=== PATIENT | female | born 1955 | race Caucasian/White ===

== ENCOUNTER 2024-09-17 19:52 | Inpatient (IN) | payer MEDICARE, SELFPAY ==
[2024-09-17] VITALS (39 sets, daily range): BP systolic 52–197; BP diastolic 17–88; BMI 41.0
[2024-09-17] MEDS: VERSED 5 MG IV ×3 (16:50→22:04)
[2024-09-17 17:02] LABS: Hematocrit 45.3 % (37.0-47.0); Hemoglobin 14.1 g/dL (12.0-16.0); Mean Corp Hgb Conc. 31.1 g/dL (33.0-37.0); Mean Corpuscular Volume 98.5 fL (81.0-99.0); Nucleated Red Blood Cells % 0 %; Platelet Count 269 10^3/uL (130-400); Red Cell Dist. Width 15.9 % (11.5-14.5)
--- NOTE | 2024-09-17 17:06 | ED.GENMED ---
Addendum entered and electronically signed by Reyes Olson MD 09/17/24 19:28:
Patient awaiting admission by hospitalist. Blood pressure 100/50. She is mildly fighting the ventilator. ABG was reviewed with a CO2 of 50. We will go up on her assist-control, repeat her ABG. Also try to push her pressors slightly higher and
hopefully add propofol.
Original Note:
History of Present Illness
General
Chief Complaint: Breathing Problem
Source: ambulance crew
Exam Limitations: none
Time Seen by Provider: 09/17/24 16:28
Nursing documentation reviewed up to this point in time: agreed with
History of Present Illness
History of Present Illness:
The patient is a 69-year-old female who arrives from a [facility] for acute respiratory distress. Reportedly, the patient choked in a hot dog yesterday. The patient became more short of breath and cyanotic prior to arrival. Paramedics were
called to the scene. Patient arrives on oxygen but is nearly unresponsive and hypoxic.
Past History
Past History
ED Past Medical History: Other
ED Past Surgical History: Other
Social History
Tobacco: Other
Alcohol: Other
Drug: Other
Personal: Single
Living: [facility]
Employment: Not employed
Family History
Family History: Unable to obtain
Review of Systems
Review of Systems
Unable to obtain full review of systems at this time due to: due to acuity
Other source history: [facility]
All Other Systems: Not applicable
Respiratory: Reports trouble breathing
Phy Exam
Physical Exam
Physical Exam:
Physical Exam
General: Patient appears on high flow oxygen, nearly unresponsive, tachypneic, audible crackles
Neck: supple. no meningeal signs. normal psoterior pharynx
Heart: s1/s2 regular rate and rhythm, no murmur. equal radial pulses.
Lungs: Tachypneic, audible crackles
Abdomen: Distended
Neuro: Eyes closed, noninteractive
Skin: Pale, cyanotic
Psychiatric: well kept.
Extremities: no edema. no calf tenderness. negative homans. good distal pulses
Scores
Heart Failure Risk
Heart Failure Risk Score: Not Applicable
Course
Orders/Labs/Results
Orders:
Orders
09/17/24 16:45
Midazolam HCl [Versed] 5 mg .ROUTE .STK-MED ONE
09/17/24 16:54
Complete Blood Count/With Diff Urgent
Comprehensive Metabolic Panel Urgent
NT-proBNP Urgent
PTT Urgent
Prothrombin Time Urgent
09/17/24 16:55
Chest X-ray Portable [CR Chest Portable - 1 View] Urgent
Comment:
Reason For Exam: aspiration
Reason Study Needs to be Portable: Patient Unstable
09/17/24 16:57
EKG [Electrocardiogram (*1)] Urgent
Reason for Study: Shortness of Breath
EKG- Treatment ONCE
09/17/24 17:00
Fentanyl Citrate/Pf [Sublimaze] 100 mcg .ROUTE .STK-MED ONE
Fentanyl Citrate/Pf [Sublimaze] 50 mcg IV NOW STA
09/17/24 17:01
FentaNYL 1,000 MCG/100 ML [Sublimaze] 1,000 mcg in 100 ml .ROUTE .STK-MED
09/17/24 17:02
FentaNYL 1,000 MCG/100 ML [Sublimaze] 1,000 mcg in 100 ml IV NOW
Indication:: Light Sedation
Begin Infusion:: Now
Goal:: pain score </= 1, CPOT 0-2
Maximum dose in mcg/hr:: 300
Initial Dose in mcg/hr:: 1
Titration Instructions:: Titrate every 30 minutes if patient exhibits signs of pain or discomfort
Titration Instructions:: (pain score >/= 2, CPOT >/= 3).
Titration Instructions:: Administer bolus dose and increase infusion by 25 mcg/hr.
Taper Instructions:: If pain score at goal for 4 consecutive hours (pain score </= 1, CPOT 0-2)
Taper Instructions:: decrease infusion by 50 mcg/hr every 2 hours.
Taper Instructions:: When dose </= 50 mcg/hr may turn infusion off and consider PRN
Taper Instructions:: intermittent bolus doses only.
Over-sedation Instructions:: If CPOT 0-2 (goal) and RASS -3 to -5 (below goal) decrease sedative by 50%
Over-sedation Instructions:: first. If pain score remains at goal and RASS remains below goal in 1 hour,
Over-sedation Instructions:: decrease opioid infusion by 50%.
Notify provider:: immediately if pt exhibits: chest wall rigidity, hemodynamic instability,
Notify provider:: agitation/pain despite maximum dosing, pain when RASS below goal.
Additional Instructions:: Patient MUST be mechanically ventilated.
Fentanyl Citrate/Pf [Sublimaze] 100 mcg IV NOW STA
Fentanyl Citrate/Pf [Sublimaze] 50 mcg IV [id number] PRN
Chest X-ray Portable [CR Chest Portable - 1 View] Urgent
Comment:
Reason For Exam: unstable
Reason Study Needs to be Portable: Patient Unstable
09/17/24 17:05
0.9% Sodium Chloride 1000 ml [Nss] 1,500 ml IV NOW STA
09/17/24 17:07
Piperacillin/Tazo 4.5 Gram [Zosyn] 4.5 gram in 100 ml IV NOW
09/17/24 17:09
0.9% Sodium Chloride 1000 ml [Nss] 2,000 ml IV BOLUS
09/17/24 17:22
Lactic Acid Urgent
Blood Culture Q30M
TAYE Source: Blood/Venous
Specimen Description:
09/17/24 17:24
Blood Culture Q30M
TAYE Source: Blood/Venous
Specimen Description:
09/17/24 17:28
Vancomycin [Vancocin] 2,000 mg 0.9% Sodium Chloride 500 ml [Nss] 500 ml IV NOW
09/17/24 17:30
NORepinephrine 4 MG/250 ML [Levophed] 4 mg in 250 ml IV PER PROTOCOL
Initial dose in mcg/min, then titrate:: 5
Titrate to keep:: SBP > 90 mmHg
Titrate by mcg/min:: 1-2 mcg/min
Frequency of titrations (minutes):: 5
Maximum dose in ICU in mcg/min:: 30
Maximum dose in IMU in mcg/min:: 8
Maximum dose in IVU in mcg/min:: 4
Begin to taper infusion when:: Remained at goal for 4hrs
Taper by mcg/min:: 1-2 mcg/min
Frequency of taper (minutes) if patient maintains goal:: 30
Taper to off?: Yes
If infusion off & no longer maintaining goal:: Contact Provider
09/17/24 17:32
ABG [Arterial Blood Gas] Urgent
%Oxygen/Room Air: 100
09/17/24 18:10
Midazolam HCl [Versed] 5 mg IV NOW STA
09/17/24 18:11
FentaNYL INFUSION TITRATE NOW X 1 BAG FentaNYL 1,000 MCG/100 ML [Sublimaze] 1,000 mcg in 100 ml IV NOW
Indication:: Light Sedation
Begin Infusion:: Now
Goal:: pain score </= 1, CPOT 0-2
Maximum dose in mcg/hr:: 300
Initial Dose in mcg/hr:: 25
Titration Instructions:: Titrate every 30 minutes if patient exhibits signs of pain or discomfort
Titration Instructions:: (pain score >/= 2, CPOT >/= 3).
Titration Instructions:: Administer bolus dose and increase infusion by 25 mcg/hr.
Taper Instructions:: If pain score at goal for 4 consecutive hours (pain score </= 1, CPOT 0-2)
Taper Instructions:: decrease infusion by 50 mcg/hr every 2 hours.
Taper Instructions:: When dose </= 50 mcg/hr may turn infusion off and consider PRN
Taper Instructions:: intermittent bolus doses only.
Over-sedation Instructions:: If CPOT 0-2 (goal) and RASS -3 to -5 (below goal) decrease sedative by 50%
Over-sedation Instructions:: first. If pain score remains at goal and RASS remains below goal in 1 hour,
Over-sedation Instructions:: decrease opioid infusion by 50%.
Notify provider:: immediately if pt exhibits: chest wall rigidity, hemodynamic instability,
Notify provider:: agitation/pain despite maximum dosing, pain when RASS below goal.
Additional Instructions:: Patient MUST be mechanically ventilated.
Fentanyl Citrate/Pf [Sublimaze] 100 mcg IV NOW STA
Fentanyl Citrate/Pf [Sublimaze] 50 mcg IV [id number] PRN
Abnormal Lab Results
09/17/24 09/17/24 09/17/24
16:54 17:22 17:32
WBC 22.8 H 10^3/uL
(4.8-10.8)
MCHC 31.1 L g/dL
(33.0-37.0)
RDW 15.9 H %
(11.5-14.5)
MPV 11.7 H fL
(7.4-10.4)
Abs Immat Gran (auto) 0.1 H 10^3/uL
(0-0.05)
Absolute Neuts (auto) 17.5 H 10^3/uL
(1.4-6.5)
Absolute Lymphs (auto) 3.9 H 10^3/uL
(1.2-3.4)
Absolute Monos (auto) 1.3 H 10^3/uL
(0.1-0.6)
Neutrophils % 76.9 H %
(42.2-75.2)
Lymphocytes % 16.9 L %
(20.5-51.1)
PT 15.0 H Sec
(11.4-14.6)
pH 7.17 L*
(7.35-7.45)
pCO2 50 H mmHg
(32-35)
pO2 193 H mmHg
(83-108)
HCO3 18.2 L mmol/L
(21-28)
ABG O2 Sat (Measured) 99.8 H %
(94-98)
Chloride 109 H mmol/L
(98-107)
Glucose 323 H mg/dl
(70-99)
Lactic Acid 2.7 H mmol/L
(0.7-2.0)
09/17/24 16:54
09/17/24 16:54
Vital Signs
Initial and Last Documented VS:
Initial Vital Signs
Pulse Resp
122 35
09/17/24 16:34 09/17/24 16:34
Last Documented Vital Signs
Pulse Resp BP Pulse Ox
88 25 84/47 100
09/17/24 18:00 09/17/24 18:00 09/17/24 18:00 09/17/24 18:02
MDM/Problems Addressed
Differential Diagnosis Includes:
Aspiration pneumonia, UTI, CHF
MDM/Problems Addressed:
Patient presents with acute shortness of breath
*Pulse Oximetry
SaO2: 62
Patient hypoxic: yes
Comment: 62% on arrival
*EKG
Interpreted by ED Provider?: Yes
Interpretation: abnormal
Comparison EKG: no comparison EKG present
Rate: normal
Rhythm: sinus
Sibley: normal axis
Interval: normal interval
QRS Pattern: right bundle branch block
Ischemia: non-specific ST changes
*Mailing Section Clerk Interpretation
Rate: normal
Interpretation: normal
Rhythm: sinus
*Critical Care Note
Total Time (30-74mins, 75-104mins- exclusive of procedures): 43 minutes
comment:
43 minutes of critical care given to the patient including frequent reassessments of her respiratory effort mental status and blood pressure, reviewing her chest x-ray, speaking to the hospitalist, reviewing her lab work, speaking to her brother Kevyn
Data Reviewed
Source: ambulance crew
Patient Management
Discussion with other providers: Hospitalist
Update Note
Update Note:
I personally intubated the patient with a 6.0 ET tube. Tube placement confirmed by color change and chest x-ray.
ED Attending Note
-
Portions of this chart may have been created with voice recognition software.� Occasional wrong word or��sound alike� substitutions may have occurred due to the inherent limitations of voice recognition software.
Discharge Plan
Departure
Patient Disposition: Admit
Date of Disposition: 09/17/24
Time of Disposition: 17:29
Admit to: ICU
Presentation/result/management discussed w/ accepting MD/DO: Hospitalist
Patient with high blood pressure during this ER visit?: No
Condition: Critical
Discharge Problem:
Acute hypoxic respiratory failure, Septic shock, Aspiration pneumonia
Interventions
Interventions:
*Risk Screen - Suicide Last Done: 09/17/24 17:20
*General Assessment Last Done: 09/17/24 17:20
*Neglect/Abuse Screening Last Done: 09/17/24 17:20
*ED- Fall Risk Assessment Last Done: 09/17/24 17:20
*ED COVID-19 Vaccine History Last Done: 09/17/24 17:20
ED- Cardiac Assessment Last Done: 09/17/24 16:35
ED- Pulmonary Assessment Last Done: 09/17/24 16:35
Discharge Date and Time
Print Language: SURINAMESE
[2024-09-17] MEDS: SUBLIMAZE 50 MCG IV ×2 (17:10→20:14)
[2024-09-17 17:12] LABS: APTT 26.6 Sec (23.4-35.0); INR 1.15; PT 15.0 Sec (11.4-14.6)
[2024-09-17] MEDS: NSS 2000 IV (17:14)
[2024-09-17 17:27] LABS: ALT (SGPT) 22 U/L (0-35); AST (SGOT) 33 U/L (14-36); Albumin 4.1 g/dl (3.5-5.0); Alkaline Phosphatase 85 U/L (38-126); Blood Urea Nitrogen 17 mg/dl (7-17); Calcium 9.9 mg/dl (8.4-10.2); Carbon Dioxide 24 mmol/L (22-30); Chloride 109 mmol/L (98-107); Estimated Creatinine Clearance 75 ml/min; Glucose 323 mg/dl (70-99); Potassium 4.4 mmol/L (3.5-5.1); Sodium 143 mmol/L (135-145); Total Protein 7.5 g/dl (6.3-8.2); eGFR > 60.00
[2024-09-17] MEDS: ZOSYN 100 IV (17:27)
[2024-09-17] MEDS: LEVOPHED 250 IV (17:29)
[2024-09-17] MEDS: SUBLIMAZE 100 IV (17:30)
[2024-09-17] MEDS: VANCOCIN 540 MG IV (17:39)
[2024-09-17 17:44] LABS: B.E. -10.2 mmol/L; HCO3 18.2 mmol/L (21-28); O2 Saturation % 99.8 % (94-98); PCO2 50 mmHg (32-35); PO2 193 mmHg (83-108)
[2024-09-17] MEDS: NSS 1000 IV (18:39)
--- NOTE | 2024-09-17 19:13 | HPS.HSE ---
Addendum entered and electronically signed by Chester Valentin MD 09/17/24 23:34:
CTC PE protocol
1. No evidence of central or segmental pulmonary embolism.
2. There are bilateral perihilar consolidations extending throughout the lungs with surrounding groundglass and nodular opacities consistent with multifocal pneumonia. Additionally there is a 9 mm nodular opacity in the superior left upper lobe
which may be infectious in nature however follow-up is recommended to ensure resolution.
3. 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 There is associated mild narrowing of the right mainstem bronchus.
4. Fluid is present within the esophagus which may be secondary to extrinsic compression although a discrete mass cannot be excluded..
When the patient can tolerate a fluoroscopic esophagram or endoscopy may be considered as clinically warranted.
Original Note:
Family Physician
-
Family Physician: NOT KNOW UNKNOWN - PT DOES
Chief Complaint
-
[facility] for unresponsive and acute resp distress
History of Present Illness
I could not get any information from the patient is sedated and intubated
Information gathered by chart review and speaking with the ER staff.
HPI
69F [facility]
- for acute respiratory distress
- reportedly, the patient choked in a hot dog yesterday.
- then became more short of breath and cyanotic prior to arrival.
- Paramedics were called to the scene.
On arrival to ER:
- Unresponsive
- BP as low as 73/50, RR 25- 30 , POx 100
- s/p 3 L NS
- Initiated NE gtt
ABG 7.17/ pCO2 50, pO2 193
- sedated and Intubated
- on Vent and bucking the vent
CXR :
highly suggestive of bilateral pneumonia, left greater then right. No evidence for associated pleural effusion.
Question of right-sided aortic arch, although could just be due to slight right-sided rotation..
As warranted, follow-up 2 view chest radiograph could be considered.
Medical History
Past Medical History
Past Medical History: Reports Other (on vent , no prior admission to )
Past Surgical History: Reports Other (on vent , no prior admission to )
Social History
Unable to obtain full social history at this time due to: Patient Intubation (on vent , no prior admission to )
Family History
Family History: Unable to Obtain (on vent , no prior admission to )
Allergies / Home Medications
Allergies reflects when Allergies were last updated in [employer]
Home Medications with original date entered in [employer]
Allergy/Medication List:
Allergies
Allergy/AdvReac Type Severity Reaction Status Date / Time
No Known Allergies Allergy Unverified 09/17/24 16:51
If medication reconciliation has not been performed, why?: Other (on vent , no prior admission to )
Review of Systems
-
Unable to obtain full review of systems at this time due to: Patient Intubation
Physical Exam
Vital Signs
Vital Signs
Temp Pulse Resp BP Pulse Ox
99.5 F 84 25 92/53 100
09/17/24 19:08 09/17/24 18:19 09/17/24 18:19 09/17/24 18:20 09/17/24 18:19
Physical Exam
General: Intubated
HEENT: NormoCephalic
Respiratory: Other (symmetric AE )
Cardiac: S1/S2 and Regular Rhythm
GI: Soft, Non Tender and Non Distended
Musculoskeletal: No Edema
Neuro: Other (intubated )
Psych: Other (on vent , no prior admission to )
Laboratory Results
-
09/17/24 16:54
09/17/24 16:54
Laboratory Results
PT 15.0 Sec (11.4-14.6) H 09/17/24 16:54
INR 1.15 09/17/24 16:54
APTT 26.6 Sec (23.4-35.0) 09/17/24 16:54
pH 7.17 (7.35-7.45) L* 09/17/24 17:32
pCO2 50 mmHg (32-35) H 09/17/24 17:32
pO2 193 mmHg (83-108) H 09/17/24 17:32
HCO3 18.2 mmol/L (21-28) L 09/17/24 17:32
Lactic Acid 2.7 mmol/L (0.7-2.0) H 09/17/24 17:22
Total Bilirubin 0.8 mg/dl (0.2-1.3) 09/17/24 16:54
AST 33 U/L (14-36) 09/17/24 16:54
ALT 22 U/L (0-35) 09/17/24 16:54
Alkaline Phosphatase 85 U/L (38-126) 09/17/24 16:54
Data Reviewed
-
CT Scan: Other (pending CTC PE protocol )
Lab Data: Labs Reviewed by me
Impression/Plan
-
09/17/24
16:34 09/17/24
16:35
Pulse 122
Resp Rate 35
SaO2 85
Oxygen Mode of Delivery BiPAP
Laboratory Tests
09/17/24 09/17/24
16:54 17:32
WBC 22.8 H
Hgb 14.1
Plt Count 269
INR 1.15
pH 7.17 L*
pCO2 50 H
pO2 193 H
HCO3 18.2 L
Base Excess -10.2
CXR
- highly suggestive of bilateral pneumonia, left greater then right. No evidence for associated pleural effusion.
- question of right-sided aortic arch, although could just be due to slight right-sided rotation..
- As warranted, follow-up 2 view chest radiograph could be considered.
CTC with PE study pending
EKG
NORMAL SINUS RHYTHM
RIGHT BUNDLE BRANCH BLOCK
ABNORMAL ECG
NO PREVIOUS ECGS AVAILABLE
Last hospitalist admission:
ASSESSMENT & PLAN
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
Above preceded by choked in a hot dog yesterday - [id number] rule out food impaction
Acute hypoxic RF subsequent VDRF
Obtunded encephalopathy due to acute hypoxia
Intubated to protect AW
CXR POS for bilateral PNA L> R presumed aspiration complicated with sepsis glenys sesptic shock
- cont intubation
- ER d/w GI: Gi suggest CT imaging Chest - If Esophagus looks OK , will consult in AM
- Empiric IV Vancomycin and Zosyn
- Vent management by ICU consult
- GI consulted
Agitation on Vent
- IV Ativan 2 mg
- on Fentanyl gtt
- May need Propofol gtt
Hypotension s/p 3 L NS
Presumed septic shock
- On NS IVF
- on NE gtt at max out
- Initiate Vasopressin gtt
- ABx coverage for presumed sepsis
DVT Px: LMWH
Full code
ICU
Case dw ER attd, ICU DIRECTOR SCRIPT
Total Critical Care Time__65___ minutes. I was immediately available to the patient and staff. I personally examined, reviewed labs, diagnostic images/reports, interpretations, treatment plans, discussed patient care with other providers and
family or caregivers (if patient is unable to make decisions), entered orders as appropriate and documented the medical record.
[2024-09-17 19:39] LABS: B.E. -9.1 mmol/L; HCO3 18.4 mmol/L (21-28); O2 Saturation % 99.8 % (94-98); PCO2 45 mmHg (32-35); PO2 261 mmHg (83-108)
[2024-09-17] MEDS: LR 1000 IV (19:59)
[2024-09-17] MEDS: PITRESSIN 100 IV (20:01)
--- NOTE | 2024-09-17 20:04 | VATNOTE ---
Call by ER to check Lt. arm Midline placed today at [facility]. Trevor flushes easily and has a blood return. Redressed and biopatch applied, but unable to attach statlock to the Midline, secured with steri strip. Call to [facility] and
spoke to staff sonographer for Midline measurements. Will follow.
[2024-09-17] MEDS: SODIUM BICARBONATE 50 MEQ IV (20:10)
[2024-09-17] MEDS: SOLU-CORTEF 100 MG IV (20:13)
[2024-09-17 21:22] LABS: Urine Character Slightly Cloudy (Clear)
--- NOTE | 2024-09-17 21:22 | PHA.VAN.IN ---
Assessment
- Assessment
Renal Function: Appears similar to baseline, Unknown baseline
Maximum Temperature: 99.5
Minimum Temperature: 99.5
Concomitant Antimicrobials: PIP/TAZO
AUC Dosing Plan
- Dosing Variables
Dosing Weight (kg): 101.5
Dosing CrCl (ml/min): 75
Vd coefficient (L/kg): 0.6
- Empiric Dosing
Initial / Loading Dose: 2000mg on 09/17
Maintenance Regimen: 1000mg Q12H starting 09/18
Estimated AUC (mcg*h/mL): 509
Estimated Peak (mcg*h/mL): 29.8
Estimated Trough (mcg/ml): 14.3
Estimated Half Life (H): 10.4
- Monitoring
No levels ordered at this time: Consider levels in next few days
Pharmacokinetics Vancomycin I
- -
Patient Age: 69
Patient Sex: Female
Vancomycin Day #: 1
Indication: Pulmonary/Respiratory
Requesting Provider: Dr. Valentin
Pertinent Antimicrobial Allergies:
NKDA
Height / Weight:
Height 5 ft 2 in
Actual Weight 101.5 kg
- Vital Signs / Lab Results
Temp Pulse Resp BP Pulse Ox
99.5 F 96 20 62/27 99
09/17/24 19:08 09/17/24 20:30 09/17/24 20:30 09/17/24 20:22 09/17/24 21:16
Lab Results - Hematology
09/17/24
16:54
WBC 22.8 H
Lab Results - Chemistry
09/17/24
16:54
BUN 17
Creatinine 0.8
Estimated Creat Clear 75
Albumin 4.1
09/17/24
17:22
Lactic Acid 2.7 H
[2024-09-17] MEDS: PRECEDEX 100 IV (21:25)
[2024-09-17] MEDS: NEO-SYNEPHRINE 250 IV (21:25)
--- NOTE | 2024-09-17 21:28 | PTCARENOTE ---
Critical Care team called to assist w. pt. in ED.
Upon arrival pt. maxed on Norepi, Vasopressin initiated. ICU [facility] notified of decreasing maps --> orders to start phenylephrine.
All Vasopressors quickly maxed, CT chest completed, pt. transported to ICU w. Critical care team.
[2024-09-17 21:33] LABS: Urine Squamous Cell >30 /LPF (Few)
[2024-09-17 21:34] LABS: Urine Red Blood Cell 26-30 /HPF (0-2)
[2024-09-17] MEDS: HEPARIN 5000 UNITS SC (22:05)
--- NOTE | 2024-09-17 23:15 | PTCARENOTE ---
Pressors being titrated down. Phenyl gtt off.
Multiple providers unable to get central or arterial access. IRAD to be consulted.
Vasopressor titrations to be down off NIBP.
Vasoactive medications to be through midline, as no further access is available.
[2024-09-17] MEDS: SOLU-CORTEF 50 MG IV (23:25)
[2024-09-17] MEDS: ZOSYN 50 IV (23:25)
--- NOTE | 2024-09-17 23:57 | W.PN.SEPSIS ---
Sepsis
Vital Signs
Temp Pulse Resp BP Pulse Ox
99 F 66 20 108/57 99
09/17/24 23:15 09/17/24 23:15 09/17/24 23:15 09/17/24 23:01 09/17/24 23:15
Physical Exam
Physical Exam:
A focused exam was performed after fluid resuscitation.
Capillary Refill
Bilateral Upper Extremity:
Carmelita Time: Less than 3 sec
Bilateral Lower Extremity:
Carmelita Time: Less than 3 sec
Pulse Evaluation
Bilateral Radial:
Pulse Evaluation: Present
Bilateral Dorsalis Pedis:
Pulse Evaluation: Present
[2024-09-18] VITALS (98 sets, daily range): BP systolic 72–137; BP diastolic 45–99; BMI 41.2
--- NOTE | 2024-09-18 00:06 | PTCARENOTE ---
Fi02 decreased to 40.
--- NOTE | 2024-09-18 02:59 | PTCARENOTE ---
Addendum entered by Carlton Worthy RN 09/18/24 03:29:
Vent rate decreased to 16.
Original Note:
Vasopressors cont. to be titrated down see flowsheets for details.
No further change in assessment.
[2024-09-18] MEDS: LEVOPHED 250 IV ×3 (03:00→17:39)
[2024-09-18 03:24] LABS: Venous Blood Gas B.E. -9.3 mmol/L (-4 to +4); Venous Blood Gas O2 Sat % 99.8 %
[2024-09-18 03:25] LABS: Hematocrit 38.4 % (37.0-47.0); Hemoglobin 12.3 g/dL (12.0-16.0); Mean Corp Hgb Conc. 32.0 g/dL (33.0-37.0); Mean Corpuscular Volume 95.5 fL (81.0-99.0); Platelet Count 222 10^3/uL (130-400); Red Cell Dist. Width 15.8 % (11.5-14.5)
[2024-09-18] MEDS: SUBLIMAZE 100 IV ×3 (03:34→23:49)
[2024-09-18 03:41] LABS: INR 1.51; PT 18.4 Sec (11.4-14.6)
[2024-09-18 03:42] LABS: APTT 26.6 Sec (23.4-35.0)
[2024-09-18 03:54] LABS: ALT (SGPT) 24 U/L (0-35); AST (SGOT) 35 U/L (14-36); Albumin 2.9 g/dl (3.5-5.0); Alkaline Phosphatase 59 U/L (38-126); Blood Urea Nitrogen 17 mg/dl (7-17); Calcium 8.4 mg/dl (8.4-10.2); Carbon Dioxide 14 mmol/L (22-30); Chloride 113 mmol/L (98-107); Estimated Creatinine Clearance 75 ml/min; Glucose 430 mg/dl (70-99); Magnesium 1.7 mg/dl (1.6-2.3); Potassium 4.4 mmol/L (3.5-5.1); Sodium 138 mmol/L (135-145); Total Protein 5.5 g/dl (6.3-8.2); eGFR > 60.00
--- NOTE | 2024-09-18 04:02 | PTCARENOTE ---
ICU [facility] notified of CMP results.
Orders for insulin gtt to be started.
Frequent periods of bradycardia with SA pauses in 30s.
Dex stopped.
Vasopressin weaned off, Levo uptitrated.
[2024-09-18] MEDS: NOVOLIN R 10 UNITS IV (04:30)
[2024-09-18] MEDS: NOVOLIN R INSULIN INFUSION 100 IV ×2 (04:32→11:46)
--- NOTE | 2024-09-18 04:38 | PTCARENOTE ---
LR D\\C --> fluids changed to Hc03 gtt.
Insulin gtt started per protocol bolus 10U. POC sugar to high, initial rate made from serum Glu.
[2024-09-18 04:41] LABS: Glucose - Point of Care 433 mg/dl (70-99)
[2024-09-18] MEDS: ZOSYN 50 IV ×3 (05:01→17:18)
[2024-09-18] MEDS: SOLU-CORTEF 50 MG IV ×3 (05:01→17:18)
[2024-09-18] MEDS: SODIUM BICARBONATE 1150 MEQ IV ×2 (05:01→11:51)
[2024-09-18] MEDS: VANCOCIN 200 IV ×2 (05:38→17:50)
[2024-09-18 05:47] LABS: Glucose - Point of Care 395 mg/dl (70-99)
--- NOTE | 2024-09-18 06:43 | PTCARENOTE ---
POC to high --> Serum GLU sent.
[2024-09-18 07:03] LABS: Glucose 323 mg/dl (70-99)
[2024-09-18] MEDS: MIRALAX TUBE (07:19)
[2024-09-18] MEDS: HEPARIN 5000 UNITS SC ×2 (07:36→19:57)
--- NOTE | 2024-09-18 07:56 | CON.INTV ---
Consultation
Consultation Request
Date/Time Consultation Requested: 09/18/2024-7 AM
Date/Time Consultation Performed: 09/18/2024-7:30 AM
Requesting Provider: hospitalist
Performing Provider: Dr. Plascencia
Reason for Consultation: sepsis/ventilator/critical care management
Medical History
-
Chief Complaint: sepsis
History of Present Illness:
69-year-old non-smoking female with Down syndrome who reportedly had a choking episode on a hot dog yesterday but no obvious aspiration of the hot dog but possible aspiration of oral contents presented with obtundation requiring intubation
mechanical ventilation-plan examiner consulted for ventilator/aspiration pneumonia/sepsis/critical care management 09/18/2024. Patient is sedated on the ventilator and review of systems was unobtainable. Mild amount of secretions were noted.
Past Medical History
Past Medical History: None ( Down syndrome. Dysphagia. Obesity. AMBER suspected.)
Social History
Tobacco: Non-smoker
Alcohol: None
Drug: None
Personal: Single
Living: Snf
Occupational Exposures: Unknown asbestos exposure
Environmental Exposures: unknown tuberculosis exposure
Family History
Family History: Reviewed & Not Pertinent
Allergies / Home Medications
Allergies
Allergy/AdvReac Type Severity Reaction Status Date / Time
No Known Allergies Allergy Unverified 09/17/24 16:51
Home Medications
�Medication �Instructions �Recorded �Confirmed �Last Taken �Type
aripiprazole 2 mg tablet 2 mg PO HS Mental Health/Anxiety 09/18/24 09/18/24 09/15/24 20:54 History
aspirin 81 mg capsule 81 mg PO DAILY 09/18/24 09/18/24 09/16/24 10:14 History
buspirone 5 mg tablet 5 mg PO TID 09/18/24 09/18/24 09/16/24 13:23 History
cetirizine 10 mg tablet 10 mg PO DAILY Allergies 09/18/24 09/18/24 09/16/24 10:14 History
etodolac 400 mg tablet 400 mg PO DAILY 09/18/24 09/18/24 09/16/24 10:15 History
ezetimibe 10 mg tablet 10 mg PO DAILY High Cholesterol 09/18/24 09/18/24 09/15/24 20:54 History
fluoxetine 40 mg capsule 40 mg PO DAILY Depression 09/18/24 09/18/24 09/16/24 10:15 History
fluticasone 250 mcg-salmeterol 50 1 inh inhalation BID 09/18/24 09/18/24 09/17/24 10:41 History
mcg/dose blistr powdr for
inhalation (Wixela Inhub)
fluvastatin 40 mg capsule 40 mg PO HS High Cholesterol 09/18/24 09/18/24 09/15/24 20:54 History
insulin glargine 100 unit/mL (3 30 unit SC DAILY 09/18/24 09/18/24 09/17/24 11:05 History
mL) subcutaneous pen (Lantus
Solostar U-100 Insulin)
insulin lispro 100 unit/mL 12 unit SC TID Diabetes 09/18/24 09/18/24 09/17/24 12:05 History
subcutaneous pen
levothyroxine 125 mcg tablet 125 mcg PO DAILY Thyroid 09/18/24 09/18/24 09/16/24 05:14 History
metformin 500 mg tablet 500 mg PO BID 09/18/24 09/18/24 09/16/24 10:16 History
omeprazole 20 mg tablet,delayed 20 mg PO DAILY Gastrointestinal 09/18/24 09/18/24 09/16/24 05:14 History
release Issue
trazodone 50 mg tablet 50 mg PO HS Depression 09/18/24 09/18/24 09/15/24 20:54 History
Review of Systems
-
Unable to Obtain full review of systems at this time due to: Patient Intubation and Patient Non Verbal
Vitals / Labs / Diagnostic Testing
Vital Signs
Temp Pulse Resp BP Pulse Ox
98.3 F 55 16 97/54 99
09/18/24 07:33 09/18/24 07:30 09/18/24 07:30 09/18/24 07:30 09/18/24 07:32
Lab Data
09/18/24 03:08
09/18/24 06:41
Laboratory Results
09/17/24 09/17/24 09/17/24
16:54 17:32 19:33
PT 15.0 H
INR 1.15
APTT 26.6
pH 7.17 L* 7.22 L
pCO2 50 H 45 H
pO2 193 H 261 H
HCO3 18.2 L 18.4 L
O2 Delivery Level
09/18/24 09/18/24
03:08 06:00
PT 18.4 H
INR 1.51
APTT 26.6
pH Cancelled
pCO2 Cancelled
pO2 Cancelled
HCO3 Cancelled
O2 Delivery Level Cancelled
Diagnostic Testing:
Physical Exam
-
Exam:
well-nourished and well-developed female intubated in no distress
HEENT-atraumatic, normocephalic, oral tracheal intubation
Neck-supple, no JVD, no bruit, thick neck
Heart-regular rate and rhythm-no murmurs, rubs or gallops
Chest with crackles at the bases and expiratory rhonchi
Back-no tenderness
Abdomen-soft, nontender, nondistended, no hepatosplenomegaly
Extremities-no cyanosis, clubbing, edema and good peripheral pulses
Integument-intact, no rashes, lesions or ecchymosis
Neurologically not alert not oriented and not moving extremities
Assessment
-
69-year-old non-smoking female with Down syndrome who reportedly had a choking episode on a hot dog yesterday but no obvious aspiration of the hot dog but possible aspiration of oral contents presented with obtundation requiring intubation
mechanical ventilation-plan examiner consulted for ventilator/aspiration pneumonia/sepsis/critical care management 09/18/2024.
Ventilator dependent respiratory failure secondary to aspiration pneumonia and hypoxemic/hypercapnic respiratory failure
Intubated 09/17/2024
Extubated
Aspiration pneumonia
Dysphagia with suspected esophageal stricture
Leukocytosis
Metabolic acidosis
Hyperglycemia-blood sugar 430
Lactic acidosis
Elevated total bilirubin
Conditions present prior to admission:
Down syndrome.
Dysphagia.
Obesity-BMI 41
AMBER suspected.
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
Plan
Admit patient to medical intensive care unit for persistent hypotension despite fluid resuscitation requiring pressors
Patient required intubation and mechanical ventilation
Ventilator settings reviewed
ABG reviewed
Ventilator adjusted
Spontaneous breathing trial once medical issues stabilize
VAP prevention protocol
Nebulizers if needed
CT chest personally reviewed-airspace consolidation consistent with pneumonia-endobronchial lumen without masses-do not suspect foreign body lodged in airway, however, we will consider bronchoscopic inspection prior to extubation
Obtain cultures
Empiric antibiotics-vancomycin and Zosyn initiated
Consider Infectious disease consultation
Monitor leukocytosis
Fluid resuscitation with 30 mL/kg crystalloid-preferably lactated ringer-(less ARCHANA) with subsequent boluses as needed
Monitor lactate
Follow CVP if possible
Attempt noninvasive bedside tissue perfusion evaluation to see if fluid bolus responsive
Measure pulse pressure and stroke volume variation if patient on ventilator, passively breathing without arrhythmia and with temporary large tidal volume ventilation and if > 13% then likely fluid bolus responsive
If patient active then consider measuring bedside leg lift for 3 minutes and if cardiac output increases or if there is a rise of 2-4 on end-tidal CO2 then fluid bolus
If bedside ultrasound available then measure IVC diameter variation to evaluate for fluid bolus responsiveness
Begin pressors as needed for MAP goal of 65-Norepinephrine first, then Vasopressin and consider Angiotensin II if continues to be hypotensive-currently on norepinephrine, vasopressin, and phenylephrine
Consider methylene blue if available-specific inhibitor of induced nitric oxide synthase iNOS and its downstream enzyme soluble guanylate cyclase-noninferiority study shown to reduce time to vasopressor discontinuation, decreased ICU length of stay,
hospital stay but no change in mortality-published Critical Care 05/26/2022
If persistently hypotensive then consider checking random cortisol-hydrocortisone if random less than 3, if 3-15 then consider ACTH stimulation test
If persistently hyperthermic then correcting hyperthermia can decrease pressor requirements, increased chances of reversal of shock and decrease mortality
Patient with significant dysphagia
Gastroenterology evaluation pending
May require endoscopy
Monitor blood sugar
Glycemic protocol-insulin drip
Diabetic nurse practitioner consultation
DVT prophylaxis
Early nutrition if possible
Early mobilization/bedside range of motion
Suspect obstructive sleep apnea-consider outpatient pulmonary and sleep evaluation
Critical care statement: A total of 85 minutes of critical care time was provided for this patient today. This includes management of unstable vital signs, evaluation of the patient at bedside, reviewing the patient's pertinent medical records
including radiographs, ventilator management, sepsis management, insulin drip management, pressor management,microbiology, laboratory evaluations, and discussion with primary team, consultants, pharmacy, nutrition, physical therapy, case
management, charge nurse, critical care nursing, and respiratory therapy.
Diagnostic data:
Chest x-ray 09/17/2024-bilateral pneumonia left greater than right
CT chest 09/17/2024-no evidence for central or segmental pulmonary emboli, bilateral perihilar consolidations consistent with multifocal pneumonia and 9 mm nodule opacification superior left upper lobe may be infectious in nature though follow-up
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
discrete mass cannot be excluded
Data Reviewed
-
EKG: Report reviewed by me
Radiology: Image personally visualized and interpreted and Report reviewed by me
CT Scan: Image personally visualized and interpreted and Report reviewed by me
Medical Tests (Nuc Med, Echo etc): Report reviewed by me
Labs: Labs reviewed by me
Old Records: Reviewed
Critical Care Time (in minutes): 85
--- NOTE | 2024-09-18 08:00 | PTCARENOTE ---
Patient received from night shift manager, assessment as charted. orders reviewed.
[2024-09-18 08:16] LABS: Glucose - Point of Care 330 mg/dl (70-99)
--- NOTE | 2024-09-18 08:51 | W.PN.UPDATE ---
Update Note
Progress Note Update
Reviewed imaging. Patient with bilateral multifocal pneumonia, intubated. There was a question of whether a food bolus remained in her esophagus as she was admitted following choking on a hot dog and the presenting with respiratory distress. CT
chest shows some fluid in the esophagus no evidence of food there. Radiologist states that the fluid could be secondary to extrinsic compression but cannot rule out a mass. There is nothing obvious seen on imaging. Will reassess patient once
respiratory status is optimized to evaluate whether EGD or other diagnostic study is indicated.
[2024-09-18 09:13] LABS: Glucose - Point of Care 334 mg/dl (70-99)
--- NOTE | 2024-09-18 10:10 | PTCARENOTE ---
updated patient's brother Kevyn.
[2024-09-18 10:23] LABS: Glucose - Point of Care 278 mg/dl (70-99)
[2024-09-18] MEDS: NSS (PRESERVATIVE FREE) 10 ML IV (10:41)
[2024-09-18] MEDS: PROTONIX IV 40 MG IV (10:41)
[2024-09-18 11:14] LABS: Glucose - Point of Care 222 mg/dl (70-99)
[2024-09-18] MEDS: PRECEDEX 100 IV (11:46)
--- NOTE | 2024-09-18 11:56 | W.PN.HOSP.TC ---
Today's Communication/Plan
-
Monitor vital signs and see plan
Discussed with brother over the phone
Continue with empiric antibiotics
Wean vent and sedation as tolerated
Trend lactate
Check Legionella, strep
Continue insulin drip
Assessment / Plan
Assessment / Plan
General: Intubated, appears chronically ill
HEENT: NormoCephalic
Respiratory: Ventilated breath sound
Cardiac: S1/S2 and Regular Rhythm
GI: Soft, Non Tender and Non Distended
Musculoskeletal: No Edema
Neuro: Other (intubated )
Psych: Other (on vent)
Acute hypoxic hypercapnic respiratory failure secondary to aspiration pneumonia
Intubated 09/17/2024, vent management per personnel clerks supervisor
Continue with empiric antibiotics
History of dysphagia with suspected esophageal stricture; GI following
Wean sedation as tolerated
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 Management per personnel clerks supervisor
Septic shock secondary to aspiration pneumonia
Follow-up blood culture
Check Legionella, strep
Continue with empiric antibiotics
Currently on Levophed, wean pressors as tolerated
Continue with stress dose steroids
Lactic acidosis
Trend
Acute metabolic acidosis
Continue with bicarb drip
Repeat BMP later today
Hyperglycemia
History of diabetes
Continue with insulin drip
Hold metformin
History of bipolar disorder, depression Per [facility] point chart
Restart fluoxetine, buspirone, aripiprazole when able and mental status allows
History of asthma
Does not appear to be an asthma exacerbation
Hyperlipidemia
Hypothyroidism
Continue to hold levothyroxine at this time however if n.p.o. for longer then will need IV thyroid
Morbid obesity secondary to excess calories
Monitor
GERD
DVT prophylaxis
Heparin
Full code, discussed with brother
Total Critical Care Time__48___ minutes. I was immediately available to the patient and staff. I personally examined, reviewed labs, diagnostic images/reports, interpretations, treatment plans, discussed patient care with other providers and
family or caregivers (if patient is unable to make decisions), entered orders as appropriate and documented the medical record.
Anticipated Discharge: > 48 hours
Subjective/Interval History
-
Date of Service: September 18, 2024
Intubated and sedated
Objective Data
-
Labs:
Laboratory Results
09/18/24 09/18/24 09/18/24
03:08 06:00 06:41
WBC 20.3 H
Hgb 12.3
Hct 38.4
Plt Count 222
PT 18.4 H
INR 1.51
APTT 26.6
HCO3 Cancelled
Sodium 138
Potassium 4.4
Chloride 113 H
Carbon Dioxide 14 L*
BUN 17
Creatinine 0.8
Glucose 430 H 323 H
Calcium 8.4 D
Total Bilirubin 1.7 H
AST 35
ALT 24
Alkaline Phosphatase 59
Vital Signs:
Vital Signs
Temp Pulse Resp BP Pulse Ox
98.5 F 53 16 93/56 99
09/18/24 11:36 09/18/24 09:00 09/18/24 09:00 09/18/24 09:00 09/18/24 11:10
I&O
09/17/24 09/18/24 09/19/24
06:59 06:59 06:59
Intake Total 2008.6 / 2204.6 991.5 / 991.5
Output Total 550 / 625 200 / 200
Balance 1459.6 / 1579.6 791.5 / 791.5
--- NOTE | 2024-09-18 12:10 | PTCARENOTE ---
IR placed central line at bedside, CXR obtained. awaiting read to change lines for pressors. ongoing supportive care. patient became agitated, low dose precedex started.
[2024-09-18 12:20] LABS: Glucose - Point of Care 194 mg/dl (70-99)
--- NOTE | 2024-09-18 13:47 | PHA.VAN.FU ---
Vancomycin Assessment / Plan
- Assessment
Renal Function: Stable
WBC's are: Trending Down
In the past 24 hrs, patient has been: Afebrile
Concomitant Antimicrobials: piperacillin/tazobactam
- Dosing Plan
Continue: Vanc 1000mg Q12H
- Monitoring Plan
No level(s) ordered at this time: consider levels in next few days
- Follow Up
Pharmacy will continue to follow.
Vancomycin Follow UP
- -
Patient Age: 69
Patient Sex: Female
Vancomycin Day #: 2
Indication: Pulmonary/Respiratory
Requesting Provider: Dr. Valentin
Pertinent Antimicrobial Allergies:
NKDA
Height / Weight:
Height 5 ft 2 in
Actual Weight 102 kg
Pertinent Past Medical History: BMI ~41
- Vital Signs / Lab Results
Temp Pulse Resp BP Pulse Ox
98.5 F 52 16 121/64 97
09/18/24 11:36 09/18/24 12:45 09/18/24 12:45 09/18/24 12:45 09/18/24 12:30
Lab Results - Hematology
09/17/24 09/18/24
16:54 03:08
WBC 22.8 H 20.3 H
Lab Results - Chemistry
09/17/24 09/18/24
16:54 03:08
BUN 17 17
Creatinine 0.8 0.8
Estimated Creat Clear 75 75
Albumin 4.1 2.9 L
09/17/24 09/17/24 09/18/24
17:22 23:31 01:00
Lactic Acid 2.7 H 3.4 H Cancelled
09/18/24 09/18/24 09/18/24
03:08 05:00 06:41
Lactic Acid 2.9 H Cancelled 2.5 H
09/18/24 09/18/24
09:00 12:18
Lactic Acid Cancelled 2.3 H
Lab Results - Urine
09/17/24
21:06
Urine Nitrite (Reflex) Positive A
Leukocyte Esterase Rfl 1+ A
Ur Squamous Epith Cells >30
Microbiology Results
09/17/24 23:31 Nasal Screen MRSA (PCR) - Final
Nose MRSA not detected - performed by PCR methodology.
[2024-09-18 14:21] LABS: Glucose - Point of Care 206 mg/dl (70-99)
[2024-09-18 14:21] LABS: Glucose - Point of Care 204 mg/dl (70-99)
[2024-09-18 15:16] LABS: Glucose - Point of Care 134 mg/dl (70-99)
[2024-09-18 16:13] LABS: Glucose - Point of Care 145 mg/dl (70-99)
--- NOTE | 2024-09-18 17:15 | PTCARENOTE ---
patient was awakened during turning and repositioning, was agitated, pulling at restraints and tube. Patient was nodding appropriately when explained what is happening. stayed with patient, provided emotional support, restarted precedex gtt.
[2024-09-18 17:36] LABS: Glucose - Point of Care 116 mg/dl (70-99)
[2024-09-18 18:09] LABS: Glucose - Point of Care 115 mg/dl (70-99)
[2024-09-18 19:24] LABS: Glucose - Point of Care 136 mg/dl (70-99)
[2024-09-18] MEDS: SODIUM BICARBONATE IV ×2 (19:57→20:47)
[2024-09-18 20:35] LABS: Blood Urea Nitrogen 18 mg/dl (7-17); Calcium 8.4 mg/dl (8.4-10.2); Carbon Dioxide 29 mmol/L (22-30); Chloride 106 mmol/L (98-107); Estimated Creatinine Clearance 100 ml/min; Glucose 132 mg/dl (70-99); Potassium 3.3 mmol/L (3.5-5.1); Sodium 139 mmol/L (135-145); eGFR > 60.00
[2024-09-18] MEDS: LR 1000 IV (20:47)
[2024-09-18] MEDS: KCL 100 IV (20:50)
[2024-09-18 21:10] LABS: Glucose - Point of Care 124 mg/dl (70-99)
--- NOTE | 2024-09-18 21:14 | PTCARENOTE ---
Assumed care of pt at 1900. Received pt intubated, #6.0 ETT 22cm at lip, AC 16/400/40/5. Pt on Levophed at 8mcg/min, Precedex at 0.2mcg/kg/min, Fentanyl at 100mcg/hr, IVF, and insulin per critical care glycemic protocol. See med titration flowsheets
on worklist for ongoing details regarding med rates throughout the shift. SB 50s on monitor. SpO2 98% on current vent settings. Pt opens eyes to name or to light tactile stimuli, becomes agitated with care but calms down easily when talked through
what is going on. See nursing shift assessment flowsheet for full physical assessment details.
[2024-09-18] MEDS: SUBLIMAZE 50 MCG IV (22:18)
[2024-09-18 23:27] LABS: Glucose - Point of Care 86 mg/dl (70-99)
[2024-09-19] VITALS (95 sets, daily range): BP systolic 69–157; BP diastolic 37–88; PULSE 2–60; BMI 42.2
[2024-09-19] MEDS: SOLU-CORTEF 50 MG IV ×2 (00:24→06:11)
[2024-09-19] MEDS: ZOSYN 50 IV ×4 (00:24→18:03)
[2024-09-19 00:39] LABS: Glucose - Point of Care 100 mg/dl (70-99)
[2024-09-19 01:22] LABS: Glucose - Point of Care 123 mg/dl (70-99)
[2024-09-19] MEDS: SUBLIMAZE 50 MCG IV ×4 (01:22→12:28)
--- NOTE | 2024-09-19 01:26 | PTCARENOTE ---
Midnight assessment unchanged. Precedex turned off around 0100 due to HR dropping into the upper 30s-40s. Insulin drip off and blood sugar checks ongoing per glycemic protocol. Pt continues to become very agitated with care, becomes dyssynchronous
with vent/alarming high pressures, eyes wide, attempting to sit up, pulling against restraints, etc. Fentanyl bolus doses given x2 so far this shift (see EMAR), drip titrated up after second bolus.
--- NOTE | 2024-09-19 01:52 | PTCARENOTE ---
Pt continues to be agitated, Precedex restarted based on pt's RASS score, HR in 100s-120s. Discussed with Yazan CROOKS, Ativan 1mg IV ordered as well.
[2024-09-19] MEDS: NSS (PRESERVATIVE FREE) 0.5 ML IV (02:00)
[2024-09-19] MEDS: ATIVAN 1 MG IV ×2 (02:00→21:38)
[2024-09-19 02:18] LABS: Glucose - Point of Care 141 mg/dl (70-99)
[2024-09-19 03:19] LABS: Glucose - Point of Care 166 mg/dl (70-99)
[2024-09-19 04:34] LABS: Venous Blood Gas B.E. 0.1 mmol/L (-4 to +4); Venous Blood Gas O2 Sat % 98.4 %
[2024-09-19 04:37] LABS: Hematocrit 36.3 % (37.0-47.0); Hemoglobin 11.7 g/dL (12.0-16.0); Mean Corp Hgb Conc. 32.2 g/dL (33.0-37.0); Mean Corpuscular Volume 94.3 fL (81.0-99.0); Nucleated Red Blood Cells % 0 %; Platelet Count 197 10^3/uL (130-400); Red Cell Dist. Width 15.5 % (11.5-14.5)
[2024-09-19 05:04] LABS: ALT (SGPT) 21 U/L (0-35); AST (SGOT) 36 U/L (14-36); Albumin 2.7 g/dl (3.5-5.0); Alkaline Phosphatase 62 U/L (38-126); Blood Urea Nitrogen 16 mg/dl (7-17); Calcium 8.6 mg/dl (8.4-10.2); Carbon Dioxide 25 mmol/L (22-30); Chloride 109 mmol/L (98-107); Estimated Creatinine Clearance 86 ml/min; Glucose 170 mg/dl (70-99); Magnesium 1.6 mg/dl (1.6-2.3); Potassium 3.6 mmol/L (3.5-5.1); Sodium 141 mmol/L (135-145); Total Protein 5.4 g/dl (6.3-8.2); eGFR > 60.00
[2024-09-19 05:32] LABS: Glucose - Point of Care 167 mg/dl (70-99)
[2024-09-19] MEDS: LR 1000 IV ×2 (06:10→18:03)
[2024-09-19] MEDS: VANCOCIN 200 IV (06:10)
[2024-09-19] MEDS: LEVOPHED 250 IV (06:11)
--- NOTE | 2024-09-19 06:43 | PTCARENOTE ---
0400 assessment unchanged. Ativan worked well for patient and she slept calmly for a few hours. CHG cloth bath done, linens changed.
--- NOTE | 2024-09-19 07:16 | PTCARENOTE ---
Assumed care of pt. approx 0700.
Remains intubated tolerating vent settings however per night team --> very agitated RASS +3 upon any care/sedation weaning.
-Dex turned off per night team due to profound bradycardia in 30s with SA pauses.
Insulin gtt resumed via protocol. q1
Pressor requirements minimum with norepi see titration flowsheets for details.
Decreasing U/OP --> will follow.
[2024-09-19 07:17] LABS: Glucose - Point of Care 211 mg/dl (70-99)
[2024-09-19] MEDS: MIRALAX TUBE (07:22)
--- NOTE | 2024-09-19 07:36 | W.PN.INTV ---
Today's Communication / Plan
Recommendations
Increased agitation with sedation wean
Continue with fentanyl as needed. Off Precedex
Bradycardia noted, prolonged QT noted
Echo pending, cardiology consulted per primary service
Continue antibiotics
Need to consider enteral nutrition depending on how she does in the next 24 hours
Will evaluate for bedside bronchoscopy, #6 ET tube noted, difficult intubation noted
Assessment
-
69-year-old non-smoking female with Down syndrome who reportedly had a choking episode on a hot dog yesterday but no obvious aspiration of the hot dog but possible aspiration of oral contents presented with obtundation requiring intubation
mechanical ventilation-cleaner and presser consulted for ventilator/aspiration pneumonia/sepsis/critical care management 09/18/2024.
Ventilator dependent respiratory failure secondary to aspiration pneumonia and hypoxemic/hypercapnic respiratory failure
Intubated 09/17/2024
Extubated
Aspiration pneumonia
Dysphagia with suspected esophageal stricture
Leukocytosis
Metabolic acidosis
Hyperglycemia-blood sugar 430
Lactic acidosis
Elevated total bilirubin
Conditions present prior to admission:
Down syndrome.
Dysphagia.
Obesity-BMI 41
AMBER suspected.
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
Plan/recommendations
At this time, patient remains critically ill, ventilator dependent, on low-dose pressors
Chest x-ray with left lower lobe pneumonia, aspiration event
Remains on volume cycle ventilation. Airway pressure is adequate
Moving forward
Remains on volume-cycled ventilation
AC 16/400/40/5
Ppk 34, Pplat 22
Difficult situation is with weaning of sedation, patient becomes agitated, dyssynchronous with ventilator
Suspect this is from underlying Down syndrome
Patient was also difficult intubation, #6 ET tube
For now we will maintain sedation given change in arrhythmia, incomplete right bundle branch block noted
Attempt to wean pressors as able, hypotension continues
Will assess feasibility of bedside bronchoscopy prior to extubation given #6 ET tube
Reviewed with respiratory care
If proceed with extubation, will likely need to notify anesthesia availability given risk for reintubation
Left lower lobe pneumonia noted
Suspect aspiration event
Remains on Zosyn therapy
Cultures negative to date
EKG reviewed
Incomplete right bundle branch block, prolonged QT
Antipsychotic agents are currently being held
Replete magnesium, potassium
Follow clinically
Cardiology has been consulted by primary service. Echocardiogram pending
Episode of bradycardia overnight noted, off Precedex
Right IJ in place, CVP 2. Potentially follow trend
Remains on insulin drip
Follow blood sugars
Diabetic DA[employer]Y STORE MANAGER following
Continue with fentanyl as needed
Precedex discontinued
Will need to consider enteral access for nutrition in the next 24 hours
patient with significant dysphagia
Gastroenterology correspondence reviewed
Hold on endoscopy for now
DVT prophylaxis: Remains on enoxaparin
GI prophylaxis: On Protonix
Early nutrition if possible
Early mobilization/bedside range of motion
Suspect obstructive sleep apnea-consider outpatient pulmonary and sleep evaluation
Critical care statement: A total of 40 minutes of critical care time was provided for this patient today. This includes management of unstable vital signs, evaluation of the patient at bedside, reviewing the patient's pertinent medical records
including radiographs, ventilator management, sepsis management, insulin drip management, pressor management,microbiology, laboratory evaluations, and discussion with primary team, consultants, pharmacy, nutrition, physical therapy, case
management, charge nurse, critical care nursing, and respiratory therapy.
Diagnostic data:
Chest x-ray 09/17/2024-bilateral pneumonia left greater than right
CT chest 09/17/2024-no evidence for central or segmental pulmonary emboli, bilateral perihilar consolidations consistent with multifocal pneumonia and 9 mm nodule opacification superior left upper lobe may be infectious in nature though follow-up
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
discrete mass cannot be excluded
Subjective Dataa
Subjective Data
Date of Service:
Date of Service: September 19, 2024
Subjective:
Patient remains critically ill, ventilator dependent. Also remains on low-dose pressors, norepinephrine at 2 mcg. Attempt to wean sedation met with increased agitation, dyssynchrony with ventilator. Patient also developed abnormal rhythm
Objective Data
Data Reviewed
Vital Signs / I&O / Oxygen:
Vital Signs
Temp Pulse Resp BP Pulse Ox
99.8 F 53 16 106/49 99
09/19/24 05:00 09/19/24 06:01 09/19/24 06:01 09/19/24 06:01 09/19/24 07:27
Intake and Output
09/18/24 09/19/24 09/20/24
06:59 06:59 06:59
Intake Total 2009.6 / 2204.6 4239.8 / 4367.3 127.5 / 127.5
Output Total 550 / 625 1910 / 1950 40 / 40
Balance 1459.6 / 1579.6 2329.8 / 2417.3 87.5 / 87.5
SaO2 [A/C] 98
SaO2 99
Physical Exam
General: Comfortable and Other (Large neck, right IJ)
HEENT: Normocephalic and Anicteric
Cardiovascular: S1-S2, Regular Rhythm (Irregular at times), Murmur (n), Rub (n) and Peripheral Edema (1+)
Respiratory: Wheeze (n), Crackles (n), Rhonchi (few), Non-Labored Respirations and ET Tube
GI: Soft, Non Distended (Obese) and Non Tender
Neurology: Lethargic (Sedated. Spontaneously moving extremities, coughing, lifting head during sedation wean)
Skin: Other (Mild pallor)
Labs/Micro/Reports
Lab Data
09/19/24 04:26
09/19/24 04:26
Microbiology
09/17/24 17:22 Blood/Venous Blood Culture - Preliminary
No Growth in 24 hours- Final report to follow
09/17/24 17:24 Blood/Venous Blood Culture - Preliminary
No Growth in 24 hours- Final report to follow
09/17/24 23:31 Nose Nasal Screen MRSA (PCR) - Final
MRSA not detected - performed by PCR methodology.
[2024-09-19] MEDS: NSS (PRESERVATIVE FREE) 10 ML IV (07:39)
[2024-09-19] MEDS: PROTONIX IV 40 MG IV (07:39)
[2024-09-19] MEDS: HEPARIN 5000 UNITS SC (07:39)
[2024-09-19] MEDS: SUBLIMAZE 100 IV ×2 (07:46→15:16)
--- NOTE | 2024-09-19 07:47 | PN.DE.MGMTRT ---
Insulin Management
- -
09/19/2024: Diabetes Management Consult
69 year old female with PMH: Down syndrome who reportedly had a choking episode on a hot dog with possible aspiration of oral contents. Pt was presented to the ED on 09/18 unresponsive requiring intubation- mechanical ventilation due to Acute hypoxic
hypercapnic respiratory failure 2/2 aspiration pneumonia/sepsis.
Patient is currently sedated on the ventilator and review of systems is unobtainable. Prior to admission, was taking Lantus 30 units @ HS, Lispro 12 units AC and Metformin 1000mg BID. A1C 7%, Cr 0.7, eGFR >60. Glucose on admission was 323 venous,
was started on critical care glycemic protocol.
Of note, glucose dropped to 86 mg/dL @23:00, drip was stopped overnight and resumed this morning @ 0700 for glucose level of 211 @ 3 units/hr.
Pt remains NPO. Current glucose range is 171 to 211, requiring 2-3 units of insulin/Hr.
Will continue critical care glycemic protocol for now and reassess for readiness to transition off drip this afternoon.
Give Lantus 15 units @ Noon, and then turn drip off 1 hr after administering Lantus.
Start moderate corrective Q6hrs.
Will cont to follow. Discussed with Nurse and ICU Pharmacy staff.
Diabetes History
- -
Type of Diabetes: 2 requiring insulin
Pre-Admission Diabetes Regimen
09/18/24 09/19/24
19:56 04:26
Creatinine 0.6 0.7
Insulin Pump Settings
IP Diabetes Regimen
09/18/24 09/18/24 09/18/24
08:05 09:02 10:02
Glucose
POC Glucose 330 H 334 H 278 H
09/18/24 09/18/24 09/18/24
11:03 12:06 13:00
Glucose
POC Glucose 222 H 194 H 206 H
09/18/24 09/18/24 09/18/24
14:02 15:03 16:02
Glucose
POC Glucose 204 H 134 H 145 H
09/18/24 09/18/24 09/18/24
17:15 17:58 19:03
Glucose
POC Glucose 116 H 115 H 136 H
09/18/24 09/18/24 09/18/24
19:56 20:59 23:15
Glucose 132 H
POC Glucose 124 H 86
09/19/24 09/19/24 09/19/24
00:28 01:10 02:06
Glucose
POC Glucose 100 H 123 H 141 H
09/19/24 09/19/24 09/19/24
03:08 04:26 05:20
Glucose 170 H
POC Glucose 166 H 167 H
09/19/24
07:06
Glucose
POC Glucose 211 H
Meal type: Breakfast
Patient Education
[2024-09-19 08:18] LABS: Glucose - Point of Care 204 mg/dl (70-99)
[2024-09-19 08:47] LABS: Glucose - Point of Care 409 mg/dl (70-99)
[2024-09-19 09:16] LABS: Glucose - Point of Care 172 mg/dl (70-99)
[2024-09-19 10:09] LABS: Glucose - Point of Care 171 mg/dl (70-99)
--- NOTE | 2024-09-19 10:18 | PTCARENOTE ---
ROUND NOTES
Potential bedside bronch if size fits 6.0 ETT.
Potential extubation w. anesthesia bedside for emergent reintubation needs if issues arise.
[2024-09-19 10:19] LABS: Glycohemoglobin (HgbA1c) 7.0 % (4.0-5.6)
--- NOTE | 2024-09-19 11:31 | PTCARENOTE ---
Addendum entered by Carlton Worthy RN 09/19/24 16:44:
Persisting Bradycardia in 30s, marketing automation manager called bedside.
TSH/K/MAG labs sent.
IV Synthroid added.
Addendum entered by Carlton Worthy RN 09/19/24 15:48:
Due to bradycardia holding off on Bronch.
Rotary Derrick Operator bedside --> will consult Cardiology.
ECHO bedside.
Addendum entered by Carlton Worthy RN 09/19/24 15:25:
Diprivan added for increased RASS/Agitation despite multiple PRNs.
Rotary Derrick Operator bedside to set up for Bronch.
Addendum entered by Carlton Worthy RN 09/19/24 12:56:
Insulin gtt D/C @ 1400. bridge to Lantus/Sliding scale.
Increased agitation marketing automation manager notified PRN Fentanyl increased to 100 mcg.
Original Note:
Appeared to convert into Atrial Fibrillation rate controlled.
Rotary Derrick Operator notified, 12 lead completed.
No further orders.
[2024-09-19] MEDS: SOLU-CORTEF 100 MG IV ×2 (12:06→21:45)
--- NOTE | 2024-09-19 12:11 | W.PN.HOSP.TC ---
Today's Communication/Plan
-
Monitor vital signs see plan
Check echo
Continue with antibiotic
Steroids
Vent management per [employer]
Wean sedation as tolerated
Assessment / Plan
Assessment / Plan
General: Intubated, appears chronically ill
HEENT: NormoCephalic
Respiratory: Ventilated breath sound
Cardiac: S1/S2 and Regular Rhythm
GI: Soft, Non Tender and Non Distended
Musculoskeletal: No Edema
Neuro: Other (intubated )
Psych: Other (on vent)
Acute hypoxic hypercapnic respiratory failure secondary to aspiration pneumonia
Intubated 09/17/2024, vent management per [employer]
Continue with empiric antibiotics
History of dysphagia with suspected esophageal stricture; GI following
Wean sedation as tolerated
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 Management per [employer], likely bronchoscopy
Septic shock secondary to aspiration pneumonia
Follow-up blood culture
Legionella, strep neg
Continue with abx
Currently on Levophed, wean pressors as tolerated
Continue with stress dose steroids
Ortiz per ICU
Lactic acidosis
Resolved
Periods of bradycardia with pauses
Check echo
Consider cardiology evaluation if okay with [employer]
Cautious with sedation, now off pressors
Acute metabolic acidosis
Continue with bicarb drip
Repeat BMP later today
Hyperglycemia
History of diabetes
A1c 7
Continue with insulin drip
Hold metformin
Diabetes PROFESSOR OF ENGLISH consulted
History of bipolar disorder, depression Per [facility]
Restart fluoxetine, buspirone, aripiprazole when able and mental status allows
History of asthma
Does not appear to be an asthma exacerbation
Hyperlipidemia
Hypothyroidism
Continue to hold levothyroxine at this time however if n.p.o. for longer then will need IV thyroid
Morbid obesity secondary to excess calories
Monitor
GERD
DVT prophylaxis
Lovenox
Full code, discussed with brother
Total Critical Care Time__44___ minutes. I was immediately available to the patient and staff. I personally examined, reviewed labs, diagnostic images/reports, interpretations, treatment plans, discussed patient care with other providers and
family or caregivers (if patient is unable to make decisions), entered orders as appropriate and documented the medical record.
Anticipated Discharge: > 48 hours
Subjective/Interval History
-
Date of Service: September 19, 2024
Continues to be intubated
Objective Data
-
Labs:
Laboratory Results
09/19/24
04:26
WBC 16.9 H
Hgb 11.7 L
Hct 36.3 L
Plt Count 197
Sodium 141
Potassium 3.6
Chloride 109 H
Carbon Dioxide 25
BUN 16
Creatinine 0.7
Glucose 170 H
Calcium 8.6
Total Bilirubin 0.9
AST 36
ALT 21
Alkaline Phosphatase 62
Vital Signs:
Vital Signs
Temp Pulse Resp BP Pulse Ox
99.2 F 53 16 102/58 97
09/19/24 10:55 09/19/24 10:00 09/19/24 10:00 09/19/24 10:00 09/19/24 11:42
I&O
09/18/24 09/19/24 09/20/24
06:59 06:59 06:59
Intake Total 2008.6 / 4.6 4239.8 / 4367.3 217.5 / 217.5
Output Total 550 / 625 1910 / 1950 180 / 180
Balance 1459.6 / 1579.6 2329.8 / 2417.3 37.5 / 37.5
[2024-09-19] MEDS: KCL 100 IV (12:23)
[2024-09-19] MEDS: MAGNESIUM SULFATE 50 IV (12:23)
[2024-09-19] MEDS: LANTUS 0.15 UNITS SC (13:06)
--- NOTE | 2024-09-19 13:27 | CM ---
Initial assessment completed with brother and [id number]. Patient is developmentally disabled with Downs Syndrome. She resides in LTC at [facility]. She uses a W/CH for mobility and can maneuver with feet shuffle. She occasionally uses a RW
to walk 2-3 steps with staff assistance. Physician and Pharmacy services are through [facility]. Discharge POC: Return to [facility] for resumption of LTC.
[2024-09-19] MEDS: SUBLIMAZE 100 MCG IV ×2 (13:57→14:44)
[2024-09-19] MEDS: DIPRIVAN 100 IV (15:20)
--- NOTE | 2024-09-19 16:38 | W.PN.UPDATE ---
Addendum entered and electronically signed by Lisa Campo MD 09/19/24 17:33:
Despite sedation, bilateral restraints, patient proceeded to self extubate herself.
Patient was immediately bagged with nursing at bedside including myself
Patient placed with head of bed elevated, adequate cough, saturation adequate on nonrebreather 100%
Heart rate improved to the 100s, systolic pressure 130s
Patient does open eyes, spontaneously moves extremities
She does vocalize
Chest exam with slight decreased breath sounds right base but otherwise good breath sounds, no crepitus, no stridor
Anesthesia at bedside
Moving forward
Given overall stability at this time with no evidence of respiratory distress, we will continue to monitor
Liberation from ventilator was going to be a difficult process given extreme anxiety, Down syndrome
Maintain n.p.o. for now, encourage airway clearance, suction as able
Will have BiPAP at bedside to use as needed for lethargy, respiratory distress
Reviewed at length with drawer upfitter
Risk for reintubation noted
Contacted brother to come in as brother stated earlier that patient is more comfortable with family around
Reviewed at length with critical care nursing, pharmacy, anesthesia
Updated primary service
TCCT 35 min
Original Note:
Update Note
Progress Note Update
Patient with intermittent agitation throughout the day requiring multiple doses of fentanyl. She has not received any other antipsychotic medications since admission. She was on Precedex over the past few days, this was discontinued due to
bradycardia. Propofol was started at a low dose. Shortly thereafter, heart rate went down to the 50s. Propofol was discontinued. Blood pressure remained stable but still required low-dose norepinephrine
EKG reveals sinus rhythm per my review, heart rate 40s to 50s
Moving forward
Continue with norepinephrine, titrate as needed
Echocardiogram completed and pending
Restart IV levothyroxine, check TSH, recheck electrolytes
Replete lytes as indicated. Received potassium and magnesium this morning
Updated brother and [id number] at length by phone
There is no cardiac history, history of heart rate issues
Will try to avoid medications that can contribute to bradycardia
Follow-up blood sugar
Updated primary service at length
If bradycardia continues, may require cardiology evaluation
Reviewed at length with critical care nursing, pharmacy
TCCT 36 min
[2024-09-19 17:01] LABS: Glucose - Point of Care 202 mg/dl (70-99)
[2024-09-19 17:09] LABS: Magnesium 1.9 mg/dl (1.6-2.3); Potassium 4.2 mmol/L (3.5-5.1); Triglycerides 121 mg/dl (10-149)
--- NOTE | 2024-09-19 17:29 | RESPNOTE ---
Patient self extubated from the ventilator at 17:05 pm and anesthesia was called. ventilator is on standby now. ICU Attending temporarily hold the re-intubation as she is responding and breathing her own. Patient is on a 100% NRB mask and doing fine
saturating 98-99%. ICU attending ordered a Bipap to keep standby at the bedside incase of any emergency and is done. Will monitor the patient for any respiratory distress, so that we can re-intubate the patient keep the airway patent.
--- NOTE | 2024-09-19 17:32 | PTCARENOTE ---
Pt. self extubated.
Hot Oiler bedside. Tolerating ventilator liberation. placed on 15L NRB.
[2024-09-19] MEDS: LOVENOX 40 MG SC (18:02)
--- NOTE | 2024-09-19 18:13 | PTCARENOTE ---
Addendum entered by Carlton Worthy RN 09/19/24 18:18:
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
Original Note:
PT. placed on 6L N/C. Sp02 96.
Maintaining airway at this time. family bedside.
[2024-09-19 18:18] LABS: Glucose - Point of Care 169 mg/dl (70-99)
[2024-09-19 18:18] LABS: Glucose - Point of Care 190 mg/dl (70-99)
[2024-09-19 18:18] LABS: Glucose - Point of Care 138 mg/dl (70-99)
[2024-09-19] MEDS: NOVOLOG FLEXPEN-MODERATE RESISTANCE 3 UNITS SC (19:01)
--- NOTE | 2024-09-19 19:30 | PTCARENOTE ---
Rec'd pt lethargic but arousable, family at bedside, wiggled toes to command, SR/ Sinus shaka w/ pac's, levo at 2 deena- to keep sbp > 90- see flow sheet for titrations, weak distal pulses, skin warm/dry, O2 via 6liters nc, lungs dec, scat exp
wheezes, coarse, sat 96, hypo bowel sounds, no bm, abd obese, soft, no vomiting, NPO, mccrary draining yellow urine
[2024-09-19] MEDS: DESENEX/MITRAZOL/ZEASORB 1 APPLIC TOPICAL (19:44)
--- NOTE | 2024-09-19 20:07 | VATNOTE ---
called by TRAFFIC CONTROL OFFICERSury to redress left midline; upon assessment noted catheter underneath dsg was completely out. Informed PCN.
--- NOTE | 2024-09-19 21:40 | PTCARENOTE ---
pt extremely agitated, pulled off o2 desat to 70, HR up to 150, K CORNELIUS Ennis aware, ativan 1mg iv given per order, sat 96 on nc
--- NOTE | 2024-09-19 22:20 | PTCARENOTE ---
pt lethargic, unable to arouse, RR 8, K Raymon, PET TRAINER aware, bipap 12/5 w / 6 liters O2, left restraint dc'd
[2024-09-20] VITALS (86 sets, daily range): BP systolic 74–173; BP diastolic 34–152; PULSE 2–96; BMI 43.3
--- NOTE | 2024-09-20 | PTCARENOTE ---
Hugo Ennis NP aware of RR 8-9, Bipap changed to 15/5 w/ 6 liters, lungs unch, CHG bath done, linens changed, pt awakened w/ am care, SR/ Sinus shaka, pauses
[2024-09-20] MEDS: ZOSYN 50 IV ×5 (00:09→23:13)
[2024-09-20] MEDS: NOVOLOG FLEXPEN-MODERATE RESISTANCE 3 UNITS SC ×3 (00:43→12:02)
[2024-09-20 00:53] LABS: Glucose - Point of Care 204 mg/dl (70-99)
[2024-09-20] MEDS: LR 1000 IV ×3 (02:16→23:25)
[2024-09-20] MEDS: LEVOPHED 250 IV (02:16)
[2024-09-20 03:30] LABS: Hematocrit 33.8 % (37.0-47.0); Hemoglobin 10.8 g/dL (12.0-16.0); Mean Corp Hgb Conc. 32.0 g/dL (33.0-37.0); Mean Corpuscular Volume 96.6 fL (81.0-99.0); Nucleated Red Blood Cells % 0 %; Platelet Count 204 10^3/uL (130-400); Red Cell Dist. Width 15.9 % (11.5-14.5)
[2024-09-20 03:54] LABS: ALT (SGPT) 22 U/L (0-35); AST (SGOT) 32 U/L (14-36); Albumin 2.6 g/dl (3.5-5.0); Alkaline Phosphatase 64 U/L (38-126); Blood Urea Nitrogen 19 mg/dl (7-17); Calcium 8.2 mg/dl (8.4-10.2); Carbon Dioxide 27 mmol/L (22-30); Chloride 109 mmol/L (98-107); Estimated Creatinine Clearance 76 ml/min; Glucose 212 mg/dl (70-99); Potassium 4.0 mmol/L (3.5-5.1); Sodium 139 mmol/L (135-145); Total Protein 5.2 g/dl (6.3-8.2); eGFR > 60.00
--- NOTE | 2024-09-20 04:00 | PTCARENOTE ---
sys reviewed, lungs decr, Non prod moist cough, after repos in bed pt awake and was agitated, trying to take off mask, K John demarco aware, zyprexa 5 mg im given at 0435 per order
[2024-09-20] MEDS: ZYPREXA 5 MG IM (04:36)
[2024-09-20] MEDS: STERILE WATER FOR INJECTION 2.1 ML IM (04:37)
[2024-09-20 05:28] LABS: Glucose - Point of Care 233 mg/dl (70-99)
--- NOTE | 2024-09-20 06:25 | PTCARENOTE ---
Heart rate dropped to 36, sat 98, RR 16, arouses w/ stimulation
--- NOTE | 2024-09-20 07:50 | W.PN.INTV ---
Today's Communication / Plan
Recommendations
Unfortunately patient was not compliant with speech and swallow evaluation
Difficult to assess aspiration risk but encouraging when she has good cough
Continue antibiotics
Appreciate cardiology input
Decrease steroids
Wean norepinephrine
Continue with BiPAP as needed
Discontinue Ortiz
Avoid sedation, anxiolytic therapy, narcotic therapy. Hope to start oral home regimen when cleared for aspiration risk
Assessment
-
69-year-old non-smoking female with Down syndrome who reportedly had a choking episode on a hot dog yesterday but no obvious aspiration of the hot dog but possible aspiration of oral contents presented with obtundation requiring intubation
mechanical ventilation-communications programmer consulted for ventilator/aspiration pneumonia/sepsis/critical care management 09/18/2024.
Ventilator dependent respiratory failure secondary to aspiration pneumonia and hypoxemic/hypercapnic respiratory failure
Intubated 09/17/24
Extubated 09/19/24 (self extubated)
Aspiration pneumonia
Dysphagia with suspected esophageal stricture
Leukocytosis
Metabolic acidosis
Hyperglycemia-blood sugar 430
Lactic acidosis
Elevated total bilirubin
Conditions present prior to admission:
Down syndrome.
Dysphagia.
Obesity-BMI 41
AMBER suspected.
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
Plan/recommendations
At this time, patient remains critically ill, self extubated 09/19
Required intermittent BiPAP through the night given agitation, Ativan
Chest x-ray with left lower lobe pneumonia, aspiration event
Patient does follow commands, has good cough
Unfortunately, becomes easily agitated and anxious with care
Notes that patient was also difficult intubation, #6 ET tube
No stridor postextubation
Moving forward
Continue with airway clearance measures
Head of bed elevated
Unfortunately, with speech evaluation, patient was noncompliant, spit out applesauce, did not swallow on command
This will be difficult as unclear safety regarding oral medications and oral diet
Patient will not tolerate Dobbhoff tube placement, will pull out
Will need to discuss options with family
Attempt to wean pressors as able, hypotension continues, remains on low-dose norepinephrine
Intermittent bradycardia noted, more pronounced with sleep
High suspicion for sleep apnea
May require cardiology evaluation to rule out heart block as intermittently goes between sinus rhythm and possible type II heart block?
Follow electrolytes
Reviewed with cardiology
Left lower lobe pneumonia noted
Suspect aspiration event
Remains on Zosyn therapy
Cultures negative to date
Continue with insulin coverage
Follow blood sugars
Diabetic GUM MACHINE OPERATOR following
Discontinue Ativan
Will need to minimize sedation, narcotic therapy
Will need to consider enteral access for nutrition in the next 24 hours
patient with significant dysphagia
Gastroenterology correspondence reviewed
May need to revisit with GI but will be difficult situation given behavioral disturbance, Down syndrome
DVT prophylaxis: Remains on enoxaparin
GI prophylaxis: On Protonix
Early nutrition if possible
Early mobilization/bedside range of motion. This will also be difficult given patient's agitation with any type of medical care
The above was reviewed in length with brother by phone
Reviewed with brother by phone limitations in advancing care given patient's difficult compliance with care
Reviewed with critical care nursing, respiratory care, pharmacy
Reviewed with primary service
Critical care statement: A total of 43 minutes of critical care time was provided for this patient today. This includes management of unstable vital signs, evaluation of the patient at bedside, reviewing the patient's pertinent medical records
including radiographs, ventilator management, sepsis management, insulin drip management, pressor management,microbiology, laboratory evaluations, and discussion with primary team, consultants, pharmacy, nutrition, physical therapy, case
management, charge nurse, critical care nursing, and respiratory therapy.
Diagnostic data:
Chest x-ray 09/17/2024-bilateral pneumonia left greater than right
CT chest 09/17/2024-no evidence for central or segmental pulmonary emboli, bilateral perihilar consolidations consistent with multifocal pneumonia and 9 mm nodule opacification superior left upper lobe may be infectious in nature though follow-up
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
discrete mass cannot be excluded
Subjective Dataa
Subjective Data
Date of Service:
Date of Service: September 20, 2024
Subjective:
Patient remains critically ill, required BiPAP intermittently overnight, required 1 dose of Ativan for agitation. She does remain with adequate cough. She intermittently becomes lethargic but is easily arousable. Heart rate continues to go as low
as 40s, appears to be sinus but occasional rhythm appears to have possible dropped P wave, not sure
Objective Data
Data Reviewed
Vital Signs / I&O / Oxygen:
Vital Signs
Temp Pulse Resp BP Pulse Ox
98 F 44 16 95/48 97
09/20/24 04:00 09/20/24 06:00 09/20/24 06:00 09/20/24 06:00 09/20/24 06:00
Intake and Output
09/19/24 09/20/24 09/21/24
06:59 06:59 06:59
Intake Total 4239.8 / 4367.3 2465.9 / 2465.9
Output Total 1909 / 1949 930 / 930
Balance 2329.8 / 2417.3 1535.9 / 1535.9
SaO2 [A/C] 98
SaO2 97
Nasal Cannula flow liters per 6
minute
Physical Exam
General: Comfortable and Other (Large neck, right IJ)
HEENT: Normocephalic and Anicteric
Cardiovascular: S1-S2, Regular Rhythm (Irregular at times), Murmur (n), Rub (n) and Peripheral Edema (1+)
Respiratory: Wheeze (n), Crackles (n), Rhonchi (few) and Non-Labored Respirations
GI: Soft, Non Distended (Obese) and Non Tender
Neurology: Awake (Follows commands, coughs on command, moves all extremities)
Skin: Cyanosis (n) and Other (Mild pallor)
Labs/Micro/Reports
Lab Data
09/20/24 03:11
09/20/24 03:11
Microbiology
09/17/24 17:22 Blood/Venous Blood Culture - Preliminary
No Growth in 48 hours- Final report to follow
09/17/24 17:24 Blood/Venous Blood Culture - Preliminary
No Growth in 48 hours- Final report to follow
09/17/24 21:06 Urine Urine Culture - Final
No Significant Growth
09/18/24 16:24 Urine Legionella Urinary Antigen - Final
Negative for Legionella pneumophila Serogroup 1 antigen.
A negative result does not rule out the possiblity of
Legionella infection due to other serogroups or species of
Legionella. Clinical correlation is recommended.
09/18/24 16:24 Urine Streptococcus pneumoniae Antigen (M - Final
Negative for Streptococcus pneumoniae antigen.
A negative result does not exclude infection with
Streptococcus pneumoniae. Clinical correlation is
recommended.
09/17/24 23:31 Nose Nasal Screen MRSA (PCR) - Final
MRSA not detected - performed by PCR methodology.
--- NOTE | 2024-09-20 08:00 | PTCARENOTE ---
pt drowsy , opens eyes , pt on Bipap , sats 100% , HR sinus shaka , she goes up to 70s while is awake and her HR appears to be in afib , labs noted , plan to wean off of levophed gtt, wean off of Bipap add speech for swallow eval
[2024-09-20] MEDS: DESENEX/MITRAZOL/ZEASORB 1 APPLIC TOPICAL ×2 (08:42→20:25)
[2024-09-20] MEDS: PROTONIX IV 40 MG IV (08:42)
--- NOTE | 2024-09-20 08:42 | PN.DE.MGMTRT ---
Insulin Management
- -
09/20/2024: Diabetes Management Consult Follow up
Patient admitted 09/17 with acute respiratory distress. PMH: Down syndrome who reportedly had a choking episode on a hot dog with possible aspiration of oral contents. 09/17 in the ED patient was unresponsive requiring intubation- mechanical
ventilation due to Acute hypoxic hypercapnic respiratory failure 2/2 aspiration pneumonia/sepsis. Prior to admission, was taking Lantus 30 units daily, Lispro 12 units AC and Metformin 1000mg BID. A1C 7%, Cr 0.7, eGFR >60.
Patient is currently sleeping, not disturbed. Discussed with nurse. Patient has limited insight as to her diabetes care. Patient currently receiving steroids, dose to be reduced today.
Pt remains NPO.
09/19 Patient received 15 units lantus @ noon with moderate corrective insulin Q 6 hours. Glucose range 202 to 204.
09/20 Fasting glucose 233. Will increase AM lantus to 20 units to be given at 9am. Will continue moderate corrective insulin Q 6 hours.
Discussed with Nurse.
Will cont to follow.
Diabetes History
- -
Type of Diabetes: 2 requiring insulin
Pre-Admission Diabetes Regimen
09/20/24
03:11
Creatinine 0.8
Lab Results
Hemoglobin A1c 7.0 % (4.0-5.6) H 09/18/24 12:18
Insulin Pump Settings
IP Diabetes Regimen
09/18/24 09/19/24 09/19/24
06:28 09:04 09:58
Glucose
POC Glucose 409 H 172 H 171 H
09/19/24 09/19/24 09/19/24
10:55 12:10 13:06
Glucose
POC Glucose 169 H 190 H 138 H
09/19/24 09/20/24 09/20/24
16:49 00:42 03:11
Glucose 212 H
POC Glucose 202 H 204 H
09/20/24
05:17
Glucose
POC Glucose 233 H
Patient Education
[2024-09-20] MEDS: NSS (PRESERVATIVE FREE) 10 ML IV (08:43)
[2024-09-20] MEDS: MIRALAX TUBE (08:43)
--- NOTE | 2024-09-20 10:08 | PN.CDI ---
CDI
- -
CDI:
Physician Documentation Request
Admit Date: 09/17/24 19:52
Dear Doctor Milind,
Please review the following and provide your response in the progress notes.
Clinical Indicators:
Pt admitted with Septic shock 2/2 aspiration pneumonia
Documented per h&P, ' On arrival to ER:Unresponsive ....Obtunded encephalopathy due to acute hypoxia ....Agitation on Vent IV Ativan 2 mg on Fentanyl gtt May need Propofol gtt ..'
Please specify the known or suspected type of the documented encephalopathy.
Metabolic
Toxic
Toxic metabolic
Other ( please specify)
Use of terms such as suspected, likely, concern for, or probable (associated with a specific diagnosis that is being evaluated, monitored, or treated as if it exists) are acceptable and can be coded in the inpatient setting, when documented at the
time of discharge.
Thank you,
Abril Nascimento RN
CDI Specialist
[employer]
Please use your independent medical judgment in providing your response.
[2024-09-20] MEDS: SOLU-CORTEF 50 MG IV ×2 (10:14→21:58)
[2024-09-20] MEDS: LANTUS 0.2 UNITS SC (10:14)
[2024-09-20 12:12] LABS: Glucose - Point of Care 214 mg/dl (70-99)
--- NOTE | 2024-09-20 12:14 | W.PN.HOSP.TC ---
Today's Communication/Plan
-
monitor vitals
see plan
cw abx
wean bipap as tolerated
wean levo as tolerated
speech when able
if able to tolerate PO then start some PO psych meds
Assessment / Plan
Assessment / Plan
General: appears chronically ill
HEENT: NormoCephalic
Respiratory: Clear to auscultation, no wheeze
Cardiac: S1/S2 and Regular Rhythm
GI: Soft, Non Tender and Non Distended
Musculoskeletal: No Edema
Neuro: unable to access, on bipap
Psych: Agitated
Acute hypoxic hypercapnic respiratory failure secondary to aspiration pneumonia
Intubated 09/17/2024, self extubated 09/19; currently on BiPAP
Continue with empiric antibiotics
History of dysphagia with suspected esophageal stricture; GI following. Will need speech evaluation once off BiPAP
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 Management per business account manager, likely bronchoscopy
Septic shock secondary to aspiration pneumonia
Follow-up blood culture NGTD
Legionella, strep neg
Continue with abx
Currently on Levophed, wean pressors as tolerated
Continue with stress dose steroids; wean quick as can exacerbate her confusion
Ortiz per ICU
Suspect change in mental status admission likely secondary to toxic metabolic encephalopathy
Continue to monitor
Lactic acidosis
Resolved
Periods of bradycardia with pauses
Echo 09/19 with mild septal hypertrophy, EF 55%. Mitral valve is thickened.
Cardiology evaluation
Acute metabolic acidosis
Resolved
Hyperglycemia
History of diabetes
A1c 7
Diabetes PATIENT ADMITTING REPRESENTATIVE managing
Continue insulin
Hold metformin
History of bipolar disorder, depression Per [facility] chart
Restart fluoxetine, buspirone, aripiprazole when able and mental status allows
History of asthma
Does not appear to be an asthma exacerbation
Hyperlipidemia
Hypothyroidism
TSH low however normal free T4
Morbid obesity secondary to excess calories
Monitor
GERD
DVT prophylaxis
Lovenox
Full code, discussed with brother
I spent a total of 52 minutes with the patient or on the floor. More than 50% of this time involved counseling and coordination of care.
Anticipated Discharge: > 48 hours
Subjective/Interval History
-
Date of Service: September 20, 2024
now on bipap
Objective Data
-
Labs:
Laboratory Results
09/20/24
03:11
WBC 15.0 H
Hgb 10.8 L
Hct 33.8 L
Plt Count 204
Sodium 139
Potassium 4.0
Chloride 109 H
Carbon Dioxide 27
BUN 19 H
Creatinine 0.8
Glucose 212 H
Calcium 8.2 L
Total Bilirubin 0.6
AST 32
ALT 22
Alkaline Phosphatase 64
Vital Signs:
Vital Signs
Temp Pulse Resp BP Pulse Ox
97.2 F 63 13 103/63 95
09/20/24 11:36 09/20/24 11:00 09/20/24 11:00 09/20/24 11:00 09/20/24 11:00
I&O
09/19/24 09/20/24 09/21/24
06:59 06:59 06:59
Intake Total 4239.8 / 4367.3 2465.9 / 2573.4 430.0 / 430.0
Output Total 1909 / 1949 930 / 970 160 / 160
Balance 2329.8 / 2417.3 1535.9 / 1603.4 270.0 / 270.0
--- NOTE | 2024-09-20 12:31 | CON.CAR ---
Addendum entered and electronically signed by Annalee Hernandez DO 09/21/24 04:02:
I saw and examined the patient.
The Hand Finisher's note was reviewed and I agree with the note.
Comment: Patient was seen and examined on 09/20/2024; late entry. Eva is a 69-year-old female with Down syndrome, Hypothyroidism and bipolar disorder admitted with acute hypoxic respiratory failure and decreased mental status 09/17/2024. Prior to
admission She [facility] a [facility] while [facility] a [facility] dog on 09/16/2024 and apparently had a choking episode, but the obstruction was cleared at the facility and the patient appeared to recover. The following day patient was
observed to be more short of breath and hospital staff called 911 and when paramedics arrived the pulse ox was 80% on room air. Patient was started on NRB in the ambulance and then intubated upon arrival to the ER. Patient was intubated from
09/17/2024 until she self extubated on 09/19/2024; She is currently on NRB. She is being treated for aspiration pneumonia and evaluated for dysphagia. Throughout admission patient has had periods of sinus bradycardia and PACs, but no high-grade heart
block. Currently in sinus rhythm/sinus tachycardia with PACs. Patient was not taking any AV nicole blockers prior to admission. She does take several psychiatric medications which are currently on hold. Twelve-lead EKGs were reviewed with normal
sinus rhythm/sinus bradycardia and a right bundle branch block. QTc initially 484 ms on 09/17/2024. EKG this morning sinus bradycardia with PACs and possibly a wandering atrial pacemaker. Right bundle branch block. QTc prolonged at 519 ms.
Echocardiogram with normal biventricular size and systolic function, EF 55% with mild septal hypertrophy. Trace mitral and mild tricuspid regurgitation. Aortic valve reported trileaflet and structurally normal with trace AI. Estimated pulmonary
artery pressures are elevated at 46 mmHg. No pericardial effusion. There is no known history of AMBER, however it is suspected [BMI 43; 5 foot 2 and weighs 236 lbs.]. She is also agitated currently in 4 points soft restraints and not cooperative
with earlier speech and swallowing evaluation spitting out applesauce.
General: Awake on nonrebreather. Patient is not answering any questions or following commands. Currently in soft wrist and ankle restraints
Heart: Regular. Positive S1-S2. No murmurs. Heart rates currently 90s
Lungs: Poor effort. Bronchovesicular breath sounds, decreased at bases. Scattered rhonchi
Abd: Obese. Soft. Nontender. Positive bowel sound
Ext:+1 non-pitting B/L LE edema
Plan:
Sinus bradycardia, PACs with right bundle branch block currently in sinus rhythm
-Continue to monitor on telemetry and avoid AV nicole blocking agents
-2D echocardiogram with normal biventricular systolic function and no hemodynamically significant valve pathology
-Monitor for nocturnal bradycardia as she most likely has sleep apnea; Eventually recommend sleep apnea evaluation although this may prove very difficult with with patient's history of Down syndrome and psychiatric history
-At this time no class I indications requiring pacemaker
Prolonged QT
-Avoid QT prolonging agents
-Magnesium on 09/19 was 1.9. Will repeat
-Repeat EKG tomorrow
Aspiration pneumonia/suspected dysphagia following choking episode at jail with hypoxic respiratory failure requiring intubation; patient self extubated on .
-Management per river expedition guide and hospitalist.
-Antibiotics
-O2 supplementation
-Aspiration precaution
-Speech and swallow evaluation attempts ongoing
Hypothyroidism on levothyroxine
-TSH suppressed at 0.2; free T4 normal at 1.5.
-Defer management to hospitalist
Type 2 diabetes mellitus With hemoglobin A1c 7%
-Management per primary
Agitation With underlying Down syndrome and history of bipolar disorder
-Consider psychiatry evaluation
Discussed with nursing
Cardiac PA updated brother by telephone on day of consultation
Will follow with you
Original Note:
Consultation
Consultation Request
Date/Time Consultation Requested: 09/20/24
Date/Time Consultation Performed: 09/20/24
Requesting Provider: Dr. Vaz
Performing Provider: Dr. Hernandez
Reason for Consultation: Bradycardia
Medical History
-
History of Present Illness:
Patient came to [facility] ER on Thursday with increased SOB and had acute hypoxic respiratory failure leading to intubation, cardiology is now consulted for sinus bradycardia. Patient is a long-term care resident at [facility], but
apparently previously was living at home with family and home health aides. Patient was eating a hot dog at the jail on 09/16/2024 and apparently had a choking episode, but the obstruction was cleared at the facility and the patient appeared
to recover and no hospitalization. The following day patient was observed to be more short of breath and hospital staff called 911 and when paramedics arrived the pulse ox was 80% on room air. Patient was started on NRB in the ambulance and then
intubated upon arrival to the ER. Patient was intubated from 09/17/2024 until she self extubated on 09/19/2024. Earlier attempts at weaning sedation resulted in agitation. Patient was initially on Precedex, but this was stopped due to bradycardia.
Patient was then on propofol. Patient now extubated and on NRB. Throughout admission patient has had periods of sinus bradycardia and PACs, but no high-grade heart block. There is no known history of AMBER, but patient is 5 foot 2 and weighs 236
lbs. Echo performed yesterday as noted above. Patient was not taking any AV nicole blockers prior to admission, but does take regimen of psychiatric medications, but no obvious adverse reaction for bradycardia noted on my review of up-to-date.
PMH:
DM 2
Hypothyroid
Bipolar disorder
Past Medical History
Past Medical History: Other (in HPI)
Past Surgical History: None
Social History
Tobacco: Non-Smoker
Alcohol: None
Drug: None
Living: Alf
Family History
Family History: Unable to Obtain
Allergies / Home Medications
Allergy/AdvReac Type Severity Reaction Status Date / Time
No Known Allergies Allergy Unverified 09/17/24 16:51
�Medication �Instructions �Recorded �Confirmed �Type
aripiprazole 2 mg tablet 2 mg PO HS Mental Health/Anxiety 09/18/24 09/18/24 History
aspirin 81 mg capsule 81 mg PO DAILY Blood Clot 09/18/24 09/18/24 History
Prevention/Tx
buspirone 5 mg tablet 5 mg PO TID Mental Health/Anxiety 09/18/24 09/18/24 History
cetirizine 10 mg tablet 10 mg PO DAILY Allergies 09/18/24 09/18/24 History
etodolac 400 mg tablet 400 mg PO DAILY Anti-Inflammatory 09/18/24 09/18/24 History
ezetimibe 10 mg tablet 10 mg PO DAILY High Cholesterol 09/18/24 09/18/24 History
fluoxetine 40 mg capsule 40 mg PO DAILY Depression 09/18/24 09/18/24 History
fluticasone 250 mcg-salmeterol 50 1 inh inhalation BID 09/18/24 09/18/24 History
mcg/dose blistr powdr for Lung/Breathing Issues
inhalation (Wixela Inhub)
fluvastatin 40 mg capsule 40 mg PO HS High Cholesterol 09/18/24 09/18/24 History
insulin glargine 100 unit/mL (3 30 unit SC DAILY Diabetes 09/18/24 09/18/24 History
mL) subcutaneous pen (Lantus
Solostar U-100 Insulin)
insulin lispro 100 unit/mL 12 unit SC TID Diabetes 09/18/24 09/18/24 History
subcutaneous pen
levothyroxine 125 mcg tablet 125 mcg PO DAILY Thyroid 09/18/24 09/18/24 History
metformin 500 mg tablet 500 mg PO BID Diabetes 09/18/24 09/18/24 History
omeprazole 20 mg tablet,delayed 20 mg PO DAILY Gastrointestinal 09/18/24 09/18/24 History
release Issue
trazodone 50 mg tablet 50 mg PO HS Depression 09/18/24 09/18/24 History
Review of Systems
-
History Source: Patient
All other systems: Negative unless noted
Physical Exam
Vital Signs
Temp Pulse Resp BP Pulse Ox
97.2 F 63 13 103/63 95
09/20/24 11:36 09/20/24 11:00 09/20/24 11:00 09/20/24 11:00 09/20/24 11:00
GEN: NAD. Awakens and is alert to voice, but no orientation
HEENT: EOMI, MMM
LUNGS: NRB.
CV: SR on tele. Reg, S1/S2, no murmur
ABD: soft, BS+, NT, ND
EXT: +1 non-pitting B/L LE edema. No clubbing, cyanosis or lesions B/L
NEURO: Gross non-focal
SKIN: No rash
Lab Results
09/20/24 03:11
09/20/24 03:11
Mnd-B-Rcvyuanxkbf Pept 1290 pg/ml 09/17/24 16:54
Impression / Plan
-
PCP: Unknown
Card: None prior to admission
Impression:
Admitted with acute hypoxic respiratory failure 09/17/24
Out of hospital choking event, cleared obstruction at facility 09/16/24
Acute hypoxic respiratory failure
intubated in the ER 09/17/24
self-extubated 09/19/24
Septic shock
Sepsis
Lactic acidosis
Aspiration PNA
Sinus bradycardia
DM 2
Hypothyroid
Bipolar disorder
Echo 09/19/2024: EF 55%, no clear WMA, mild septal hypertrophy, trace MR, mild TR with PAP 46 mmHg
Plan:
-Patient came to [facility] ER on Thursday with increased SOB and had acute hypoxic respiratory failure leading to intubation, cardiology is now consulted for sinus bradycardia. Patient is a long-term care resident at [facility], but
apparently previously was living at home with family and home health aides. Patient was eating a hot dog at the jail on 09/16/2024 and apparently had a choking episode, but the obstruction was cleared at the facility and the patient appeared
to recover and no hospitalization. The following day patient was observed to be more short of breath and hospital staff called 911 and when paramedics arrived the pulse ox was 80% on room air. Patient was started on NRB in the ambulance and then
intubated upon arrival to the ER. Patient was intubated from 09/17/2024 until she self extubated on 09/19/2024. Earlier attempts at weaning sedation resulted in agitation. Patient was initially on Precedex, but this was stopped due to bradycardia.
Patient was then on propofol. Patient now extubated and on NRB. Throughout admission patient has had periods of sinus bradycardia and PACs, but no high-grade heart block. There is no known history of AMBER, but patient is 5 foot 2 and weighs 236
lbs. Echo performed yesterday as noted above. Patient was not taking any AV nicole blockers prior to admission, but does take regimen of psychiatric medications, but no obvious adverse reaction for bradycardia noted on my review of up-to-date.
-ECG x 3 reviewed by me looks like SR with PACs. Tele also reviewed by me and no high grade heart block
-Patient with sinus bradycardia and PACs. Patient was not taking any AV nicole blockers prior to admission and has not received any this admission.
-Patient was initially on Precedex, but this was weaned and changed to propofol, but now she is not on any sedation following self-extubation overnight.
-Outpatient psychiatric meds reviewed individually by me and there is a possibility of tachycardia and hypotension, but no strong suggestion of bradycardia with any of those meds.
-No indication for PPM at this point. Cont to follow on tele and look for any heart block.
-Recommend eventual outpatient evaluation of AMBER.
-Updated patient's older brother, Kevyn, by phone for 13:33 min. Patient's brother updated me about patient's most recent PMH including hospitalization at 2 different hospitals in the [facility] followed by rehab stay at 2 different rehab
facilities and then most recently was at [facility] and was unable to return home right away so transition to long-term care at [facility] and then was enjoying herself and so family decided to let her stay at [facility] even after they arranged
for caregivers for her to return home. Patient's brother does not believe she has ever seen endocrinology, cardiology or psychiatry and that all of the medications she was taking were largely prescribed by a PCP and so he is not sure if she even
needs all of the psychiatric medications that she is prescribed.
--- NOTE | 2024-09-20 15:31 | WOUNDNOTE ---
WO RN NOTE: Patient visited for possible new DTI of sacrum/buttocks. Upon assessment skin appears to be chronic appearing discoloration and is blanchable. Blue/purple areas of buttocks appear superficial and are blanchable. Patient is on a
[employer] Max Air and turning schedule. Patient is in 4 point restraints and skin check assessment are maintained. Heels intact. Will sign off.
--- NOTE | 2024-09-20 15:35 | PTOTSP ---
Speech Language Pathology
Pt seen for clinical bedside swallow evaluation. Pt agitated, moving all over bed during assessment and yelling out. P.O. trials of thin water via pipetted straw/straw and puree attempted. Pt unable to focus on task to suck on straw. Provided
via pipetted straw, and pt closed lips around straw. Facial grimacing noted with expectoration of entire bolus into ventimask. Trialed puree, but pt only licked spoon x1, then refused further. Limited assessment at this time given agitation.
Recommend:
(1) Strict NPO
(2) Oral care 4x/day with suctioning as needed
(3) Not appropriate for Aspiration Risk Hydration Protocol (ARHP)
(4) Non-oral meds as able
(5) TEAM ASSEMBLY LINE MACHINE OPERATOR to continue to follow
--- NOTE | 2024-09-20 16:25 | CM ---
IV/Zosyn and Solu-Cortef. Angel d/cd, weaning Bipap. Discharge POC: Return tto [facility] for resumption of LTC.
--- NOTE | 2024-09-20 16:46 | W.PN.UPDATE ---
Update Note
Progress Note Update
Unfortunately patient noncompliant with speech and swallow evaluation, spit applesauce out
Presently remains on Ventimask
Reevaluated while brother and [id number] visited in the afternoon
Patient does follow commands, does have good cough. Does not like restraints although reaches for Ventimask and at risk for pulling out lines. Patient pulled out left upper extremity midline
Would like to evaluate for oral medications when able
Will try to coordinate speech and swallow evaluation while family is present tomorrow around 11
Will also like to try to coordinate PT/OT evaluation while family present
Patient's Down syndrome and ICU stay along with critical illness is likely contributed to agitation with any attempted medical care
Will try to minimize and avoid anxiolytic, sedation
Maintain head of bed elevated
BiPAP at night as able as needed
Reviewed with CCN
--- NOTE | 2024-09-20 16:53 | PTCARENOTE ---
pt weaned off of Levophed at 1200 , maps continue above 65, she is now awake and agitated, her heart rate above 50s , she is attempting to get oob and attempts to pull off oxygen and at IVs , she is now restrained for safety , speech therapy here
and patient was not cooperative for evaluation , she currently remains NPO , she continues to has good 02 sats with a venti mask at 40% , her bother and sister in law here to visit and updated on current plan of care and condition
[2024-09-20] MEDS: LOVENOX 40 MG SC (17:26)
[2024-09-20] MEDS: NOVOLOG FLEXPEN-MODERATE RESISTANCE SC ×2 (17:26→23:13)
[2024-09-20 17:36] LABS: Glucose - Point of Care 131 mg/dl (70-99)
--- NOTE | 2024-09-20 20:00 | PTCARENOTE ---
Rec'd pt w/ wrist and ankle restraints for pt safety, pt restless, calling out, oriented to name, does not follow commands, SR/Sinus tach w/ PAC's, bp stable, skin warm/dry, O2 via 40% venti mask, sat 95, lungs decr in bases, coarse, NPC, hypo bowel
sounds, no bm, abd obese, soft, NPO, inc of urine, pericare given
--- NOTE | 2024-09-20 20:45 | PTCARENOTE ---
sat 84%, place on bipap 15/5 w/ 6 liters by resp therapist, sat 95, 1:1 observation started due to restraints & bipap
[2024-09-20] MEDS: DEXTROSE 50% SYRINGE 12.5 GRAMS IV (23:10)
--- NOTE | 2024-09-20 23:10 | PTCARENOTE ---
accu 65-awake, moaning, trashing in bed, 1/2 amp d50 IV given, repeat 104
[2024-09-20 23:19] LABS: Glucose - Point of Care 65 mg/dl (70-99)
[2024-09-20 23:34] LABS: Glucose - Point of Care 104 mg/dl (70-99)
[2024-09-21] VITALS (21 sets, daily range): BP systolic 96–150; BP diastolic 46–101; PULSE 2–70; BMI 44.1
--- NOTE | 2024-09-21 | PTCARENOTE ---
sys reviewed, restless, CHG bath done, linens changed
[2024-09-21] MEDS: DEXTROSE 50% SYRINGE 12.5 GRAMS IV ×2 (00:58→12:07)
--- NOTE | 2024-09-21 01:00 | PTCARENOTE ---
accu 68, 1/2 amp d50 iv given, repeat acch 110, K CORNELIUS Ennis aware
[2024-09-21 01:08] LABS: Glucose - Point of Care 68 mg/dl (70-99)
[2024-09-21 01:24] LABS: Glucose - Point of Care 110 mg/dl (70-99)
--- NOTE | 2024-09-21 03:07 | PTCARENOTE ---
pt sleeping, HR drops to 40's Sinus shaka w/ PAC's, pauses
[2024-09-21 03:25] LABS: Glucose - Point of Care 100 mg/dl (70-99)
[2024-09-21 03:33] LABS: Hematocrit 31.3 % (37.0-47.0); Hemoglobin 9.8 g/dL (12.0-16.0); Mean Corp Hgb Conc. 31.3 g/dL (33.0-37.0); Mean Corpuscular Volume 97.8 fL (81.0-99.0); Nucleated Red Blood Cells % 0 %; Platelet Count 167 10^3/uL (130-400); Red Cell Dist. Width 15.6 % (11.5-14.5)
[2024-09-21 03:54] LABS: ALT (SGPT) 20 U/L (0-35); AST (SGOT) 28 U/L (14-36); Albumin 2.5 g/dl (3.5-5.0); Alkaline Phosphatase 54 U/L (38-126); Blood Urea Nitrogen 18 mg/dl (7-17); Calcium 8.2 mg/dl (8.4-10.2); Carbon Dioxide 33 mmol/L (22-30); Chloride 112 mmol/L (98-107); Estimated Creatinine Clearance 77 ml/min; Glucose 84 mg/dl (70-99); Potassium 3.5 mmol/L (3.5-5.1); Sodium 143 mmol/L (135-145); Total Protein 5.1 g/dl (6.3-8.2); eGFR > 60.00
--- NOTE | 2024-09-21 04:07 | PTCARENOTE ---
sys reviewed, changes noted
[2024-09-21] MEDS: ZOSYN 50 IV ×3 (05:09→18:30)
[2024-09-21] MEDS: NOVOLOG FLEXPEN-MODERATE RESISTANCE SC (05:11)
[2024-09-21 05:22] LABS: Glucose - Point of Care 88 mg/dl (70-99)
--- NOTE | 2024-09-21 06:04 | PTCARENOTE ---
awake, HR up to 120, attempting to punch staff when turned to be cleaned
--- NOTE | 2024-09-21 06:26 | W.PN.INTV ---
Addendum entered and electronically signed by Lisa Campo MD 09/21/24 15:07:
Patient transferred to telemetry.
Pulmonary will continue to follow
Original Note:
Today's Communication / Plan
Recommendations
Speech and swallow evaluation today
PT/OT evaluation today
Discontinue steroids
Decrease insulin dosing
Discontinue Ortiz catheter
Consider discontinuing central line once additional IV access obtained
GI evaluation
Potassium repleted
Assessment
-
69-year-old non-smoking female with Down syndrome who reportedly had a choking episode on a hot dog yesterday but no obvious aspiration of the hot dog but possible aspiration of oral contents presented with obtundation requiring intubation
mechanical ventilation-automotive internet sales consultant consulted for ventilator/aspiration pneumonia/sepsis/critical care management 09/18/2024.
Ventilator dependent respiratory failure secondary to aspiration pneumonia and hypoxemic/hypercapnic respiratory failure
Intubated 09/17/24
Extubated 09/19/24 (self extubated)
Aspiration pneumonia
Dysphagia with suspected esophageal stricture
Leukocytosis
Metabolic acidosis
Hyperglycemia-blood sugar 430
Lactic acidosis
Elevated total bilirubin
Conditions present prior to admission:
Down syndrome.
Dysphagia.
Obesity-BMI 41
AMBER suspected.
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
Plan/recommendations
At this time, patient remains critically ill, but I do think she is improved overall
Currently on nasal cannula, saturation 97%. Tolerated BiPAP overnight
Agitation throughout the night noted
Chest x-ray with left lower lobe pneumonia, aspiration event
Patient with good cough
Unfortunately, becomes easily agitated and anxious with care
Notes that patient was also difficult intubation, #6 ET tube
Moving forward
Continue with airway clearance measures
Head of bed elevated
Will await speech evaluation today, hopefully patient able to take medications, advance diet as able
This will be difficult as unclear safety regarding oral medications and oral diet
Patient will not tolerate Dobbhoff tube placement, will pull out
Will need to discuss options with family
At patient been weaned off norepinephrine over last 12 hours
Intermittent bradycardia noted, more pronounced with sleep
High suspicion for sleep apnea
Cardiology correspondence reviewed
Follow electrolytes
No indication for further workup at this time
Will need to follow QT once medications have been resumed
Left lower lobe pneumonia noted
Suspect aspiration event
Remains on Zosyn therapy, will complete 7-day course, last day 09/23
Cultures negative to date
Continue with insulin coverage
Hypoglycemia noted, adjustments will be made
Follow blood sugars
Diabetic TAIL TRIMMER following
Discontinue steroids
Discontinue Ativan
Will need to minimize sedation, narcotic therapy
Discontinue steroids
Will need to consider enteral access for nutrition in the next 24 hours
patient with significant dysphagia
Gastroenterology correspondence reviewed
May need to revisit with GI but will be difficult situation given behavioral disturbance, Down syndrome
GI will be reevaluating
DVT prophylaxis: Remains on enoxaparin
GI prophylaxis: On Protonix
Attempted PT later today with family at bedside
The above was reviewed in length with brother, [id number] at bedside
Reviewed with critical care nursing, respiratory care, pharmacy
Reviewed with primary service
Critical care statement: A total of 31 minutes of critical care time was provided for this patient today. This includes management of unstable vital signs, evaluation of the patient at bedside, reviewing the patient's pertinent medical records
including radiographs, ventilator management, sepsis management, insulin drip management, pressor management,microbiology, laboratory evaluations, and discussion with primary team, consultants, pharmacy, nutrition, physical therapy, case
management, charge nurse, critical care nursing, and respiratory therapy.
Diagnostic data:
Chest x-ray 09/17/2024-bilateral pneumonia left greater than right
CT chest 09/17/2024-no evidence for central or segmental pulmonary emboli, bilateral perihilar consolidations consistent with multifocal pneumonia and 9 mm nodule opacification superior left upper lobe may be infectious in nature though follow-up
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
discrete mass cannot be excluded
Subjective Dataa
Subjective Data
Date of Service:
Date of Service: September 21, 2024
Subjective:
Patient intermittently agitated throughout the night, requiring restraints, tolerated BiPAP intermittently. Heart rate variable 50-120. Had episode of low blood sugar 68
Objective Data
Data Reviewed
Vital Signs / I&O / Oxygen:
Vital Signs
Temp Pulse Resp BP Pulse Ox
98.8 F 131 17 117/93 94
09/21/24 03:08 09/21/24 06:00 09/21/24 05:00 09/21/24 06:00 09/21/24 04:00
Intake and Output
09/19/24 09/20/24 09/21/24
06:59 06:59 06:59
Intake Total 4239.8 / 4367.3 2465.9 / 2573.4 2437.5 / 2437.5
Output Total 1910 / 1950 930 / 970 360 / 360
Balance 2329.8 / 2417.3 1535.9 / 1603.4 2077.5 / 2077.5
SaO2 [A/C] 98
SaO2 94
Nasal Cannula flow liters per 6
minute
Physical Exam
General: Comfortable and Other (Large neck, right IJ)
HEENT: Normocephalic, Anicteric and Other (Blind right eye)
Cardiovascular: S1-S2, Regular Rhythm (Irregular at times), Murmur (n), Rub (n) and Peripheral Edema (1+)
Respiratory: Wheeze (n), Crackles (n), Rhonchi (few) and Non-Labored Respirations
GI: Soft, Non Distended (Obese) and Non Tender
Neurology: Awake (Follows commands, coughs on command, moves all extremities), No Motor Deficits (Moving all extremities) and Other (Occasional speech, good cough)
Skin: Cyanosis (n) and Other (Mild pallor)
Labs/Micro/Reports
Lab Data
09/21/24 03:06
09/21/24 03:06
Microbiology
09/17/24 17:22 Blood/Venous Blood Culture - Preliminary
No Growth in 72 hours- Final report to follow
09/17/24 17:24 Blood/Venous Blood Culture - Preliminary
No Growth in 72 hours- Final report to follow
09/17/24 21:06 Urine Urine Culture - Final
No Significant Growth
09/18/24 16:24 Urine Legionella Urinary Antigen - Final
Negative for Legionella pneumophila Serogroup 1 antigen.
A negative result does not rule out the possiblity of
Legionella infection due to other serogroups or species of
Legionella. Clinical correlation is recommended.
09/18/24 16:24 Urine Streptococcus pneumoniae Antigen (M - Final
Negative for Streptococcus pneumoniae antigen.
A negative result does not exclude infection with
Streptococcus pneumoniae. Clinical correlation is
recommended.
09/17/24 23:31 Nose Nasal Screen MRSA (PCR) - Final
MRSA not detected - performed by PCR methodology.
[2024-09-21] MEDS: KCL 160 MEQ IV (06:27)
--- NOTE | 2024-09-21 06:27 | PTCARENOTE ---
20 kcl/160 ml hung over 2hr per order
--- NOTE | 2024-09-21 07:37 | PTCARENOTE ---
Assumed care of pt. approx 0700.
Remains on bipap saturating well, slightly agitated but tolerating pap therapy for now.
1:[address]
Hemodynamically stable, minimal secretions.
Unable to give PO medications due to no Enteral access/failing speech eval.
[2024-09-21] MEDS: DESENEX/MITRAZOL/ZEASORB 1 APPLIC TOPICAL ×2 (08:32→20:40)
[2024-09-21] MEDS: MIRALAX TUBE (08:33)
[2024-09-21] MEDS: NSS (PRESERVATIVE FREE) 10 ML IV (08:33)
[2024-09-21] MEDS: PROTONIX IV 40 MG IV (08:33)
[2024-09-21] MEDS: LR 1000 IV (08:33)
[2024-09-21 08:47] LABS: Glucose - Point of Care 87 mg/dl (70-99)
--- NOTE | 2024-09-21 09:16 | PTCARENOTE ---
Addendum entered by Carlton Worthy RN 09/21/24 10:19:
Lantus dose adjusted.
Transitioned off PAP therapy to N/C. Tolerating well.
ROUND NOTES:
Have family present for speech eval today.
Attempt PIV Access while family is present to remove Central access.
If pt. tolerates N/C hospitalist to Downgrade.
GI rounded --> no further interventions at this moment.
Cardio rounded --> Will review Pauses with EP team again today.
Original Note:
x2 hypoglycemic events HS. Reviewed w. Clinical Pharmacy lantus dosing --> staff educator notified by pharmacy awaiting instructions regarding dose admin.
--- NOTE | 2024-09-21 09:29 | PN.DE.MGMTRT ---
Insulin Management
- -
09/21/2024: Diabetes Management Consult Follow up
Patient admitted 09/17 with acute respiratory distress. PMH: Down syndrome who reportedly had a choking episode on a hot dog with possible aspiration of oral contents. 09/17 in the ED patient was unresponsive requiring intubation- mechanical
ventilation due to Acute hypoxic hypercapnic respiratory failure 2/2 aspiration pneumonia/sepsis. Prior to admission, was taking Lantus 30 units daily, Lispro 12 units AC and Metformin 1000mg BID. A1C 7%, Cr 0.7, eGFR >60.
Patient is currently sleeping, not disturbed. Discussed with nurse. Patient has limited insight as to her diabetes care. Patient currently receiving steroids, dose to be reduced today.
Pt remains NPO.
09/20 Fasting glucose 233. AM lantus increased to 20 units to be given at 9am. Will continue moderate corrective insulin Q 6 hours. 2300 patient glucose 65, was treated then 110.
09/21 3AM glucose 100, fasting glucose 87. Will reduce AM lantus to 15 units and reduce corrective insulin to low corrective.
Discussed with Nurse.
Will cont to follow.
Diabetes History
- -
Type of Diabetes: 2 requiring insulin
Pre-Admission Diabetes Regimen
09/21/24
03:06
Creatinine 0.8
Lab Results
Hemoglobin A1c 7.0 % (4.0-5.6) H 09/18/24 12:18
Insulin Pump Settings
IP Diabetes Regimen
09/20/24 09/20/24 09/20/24
12:01 17:24 23:08
Glucose
POC Glucose 214 H 131 H 65 L
09/20/24 09/21/24 09/21/24
23:22 00:56 01:13
Glucose
POC Glucose 104 H 68 L 110 H
09/21/24 09/21/24 09/21/24
03:06 03:13 05:11
Glucose 84
POC Glucose 100 H 88
09/21/24
08:36
Glucose
POC Glucose 87
Patient Education
--- NOTE | 2024-09-21 10:05 | CON.GI ---
Addendum entered and electronically signed by Sonja Faustin DO 09/21/24 12:38:
The patient was seen and examined by me independently in collaboration with the nurse practitioner.
Past medical history/social history/medications/allergies/family history reviewed.
Lab data and imaging data reviewed.
Eva Posey is a 69 y.o. with cognitive impairment (per brother, not Downs syndrome as noted by multiple providers in patients chart), obesity, DM2, hypothyroidism admitted after reportedly chocking on a hot dog, aspirating, with significant
respiratory distress and sepsis requiring intubation and pressors. Imaging showed multifocal pneumonia, esophagus with fluid and possible extrinsic compression, no evidence of food bolus or 'esophageal stricture' as noted in patient's chart. GI
consulted to evaluate for food impaction due to patient's presenting symptoms. Patient self-extubated, pending speech evaluation.
Discussed with patient's brother, she has no issues with swallowing prior to admission to suggest an underlying esophageal issue. No prior EGD in the past.
Plan:
-speech/swallow evaluation
-if concern for esophageal dysphagia, please obtain barium esophagram and notify GI
GI will sign off, please call with questions.
Original Note:
Consultation
-
Date/Time Consultation Requested: 09/17/24 2100
Date/Time Consultation Performed: 09/21/24 1000
Requesting Provider: Chester Valentin MD
Performing Provider: DAKSHA Blevins, Katalina Faustin DO
Reason for Consultation: dysphagia/aspiration
Medical History
Chief Complaint / HPI
Chief Complaint: dysphagia
History of Present Illness:
Pt is a 69yo with hx cognitive impairment(not downs syndrome per brother) , obesity, NIDDM, hypothyroidism, prior knee replacement with recent admission for UTI and back sores. She was sent to [facility] for rehab and was actually doing very
well. She then presented with admission 09/17 with episode of choking on a hot dog with concern for aspiration. Initially asked to see 09/17 for possible food bolus with no food on CT but some fluid in esophagus Pt had some possible external
compression. She had instability with sepsis requiring intubation then self extubation and was following peripherally and now for formal consult. In review with family no issue with swallowing prior to admission. She will get occasional cough
but not recent problems. No wt loss. no abdominal pain, diarrhea, constipation, or rectal bleeding. Family did not recall any prior EGD or colonoscopy in past.
Past Medical History
Past Medical History: Hypothyroidism, NIDDM, Psychiatric (anxiety) and Other (cognitive impairment , dysphagia, obesity, suspected AMBER, left eye blindness, hearing loss )
Past Surgical History: Orthopedic (TKR)
Social History
Tobacco: Non-Smoker
Alcohol: None
Drug: None
Living: Snf
Employment: Retired
Family History
Family History: Other (mother DM no family hx GI issues )
Allergies / Home Medications
Allergy/AdvReac Type Severity Reaction Status Date / Time
No Known Allergies Allergy Unverified 09/17/24 16:51
�Medication �Instructions �Recorded
aripiprazole 2 mg tablet 2 mg PO HS Mental Health/Anxiety 09/18/24
aspirin 81 mg capsule 81 mg PO DAILY Blood Clot 09/18/24
Prevention/Tx
buspirone 5 mg tablet 5 mg PO TID Mental Health/Anxiety 09/18/24
cetirizine 10 mg tablet 10 mg PO DAILY Allergies 09/18/24
etodolac 400 mg tablet 400 mg PO DAILY Anti-Inflammatory 09/18/24
ezetimibe 10 mg tablet 10 mg PO DAILY High Cholesterol 09/18/24
fluoxetine 40 mg capsule 40 mg PO DAILY Depression 09/18/24
fluticasone 250 mcg-salmeterol 50 1 inh inhalation BID 09/18/24
mcg/dose blistr powdr for Lung/Breathing Issues
inhalation (Wixela Inhub)
fluvastatin 40 mg capsule 40 mg PO HS High Cholesterol 09/18/24
insulin glargine 100 unit/mL (3 30 unit SC DAILY Diabetes 09/18/24
mL) subcutaneous pen (Lantus
Solostar U-100 Insulin)
insulin lispro 100 unit/mL 12 unit SC TID Diabetes 09/18/24
subcutaneous pen
levothyroxine 125 mcg tablet 125 mcg PO DAILY Thyroid 09/18/24
metformin 500 mg tablet 500 mg PO BID Diabetes 09/18/24
omeprazole 20 mg tablet,delayed 20 mg PO DAILY Gastrointestinal 09/18/24
release Issue
trazodone 50 mg tablet 50 mg PO HS Depression 09/18/24
Review of Systems
-
History Source: Patient and Family
Constitutional: Reports No Symptoms
EENT: Reports No Symptoms
Respiratory: Reports Cough (occasional cough )
Cardiac: Reports No Symptoms
Abdomen/GI: Reports No Symptoms
: Reports No Symptoms
Musculoskeletal: Reports No Symptoms
Skin: Reports No Symptoms
Neurological: Reports Weakness
Endocrine: Reports No Symptoms
Hematologic/Lymphatic: Reports No Symptoms
Vital Signs
Temp Pulse Resp BP Pulse Ox
99.4 F 69 16 123/59 96
09/21/24 07:36 09/21/24 08:00 09/21/24 08:00 09/21/24 08:00 09/21/24 08:20
Physical Exam
Exam
General: Other (no acute distress )
HEENT: Normocephalic and Anicteric
Respiratory: Rhonchi
Cardiac: Regular Rhythm
GI: Soft, Non Tender and Non Distended
Skin: Warm and Dry
Neuro: Awake, Alert and Other (some )
Psych: Calm
Results
WBC 10.2 10^3/uL (4.8-10.8) 09/21/24 03:06
Hgb 9.8 g/dL (12.0-16.0) L 09/21/24 03:06
Hct 31.3 % (37.0-47.0) L 09/21/24 03:06
MCV 97.8 fL (81.0-99.0) 09/21/24 03:06
Plt Count 167 10^3/uL (130-400) 09/21/24 03:06
Absolute Neuts (auto) 8.6 10^3/uL (1.4-6.5) H 09/21/24 03:06
PT 18.4 Sec (11.4-14.6) H 09/18/24 03:08
INR 1.51 09/18/24 03:08
APTT 26.6 Sec (23.4-35.0) 09/18/24 03:08
Sodium 143 mmol/L (135-145) 09/21/24 03:06
Potassium 3.5 mmol/L (3.5-5.1) 09/21/24 03:06
Chloride 112 mmol/L (98-107) H 09/21/24 03:06
Carbon Dioxide 33 mmol/L (22-30) H 09/21/24 03:06
BUN 18 mg/dl (7-17) H 09/21/24 03:06
Creatinine 0.8 mg/dL (0.6-1.0) 09/21/24 03:06
Calcium 8.2 mg/dl (8.4-10.2) L 09/21/24 03:06
Total Bilirubin 0.6 mg/dl (0.2-1.3) 09/21/24 03:06
AST 28 U/L (14-36) 09/21/24 03:06
ALT 20 U/L (0-35) 09/21/24 03:06
Alkaline Phosphatase 54 U/L (38-126) 09/21/24 03:06
Diagnostic Image Results:
09/17/24 CT Chest PE Study
1. No evidence of central or segmental pulmonary embolism.
2. There are bilateral perihilar consolidations extending throughout the lungs with surrounding groundglass and nodular opacities consistent with multifocal pneumonia. Additionally there is a 9 mm nodular opacity in the superior left upper lobe
which may be infectious in nature however follow-up is recommended to ensure resolution.
3. 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 There is associated mild narrowing of the right mainstem bronchus. Fluid is present within the esophagus which may be secondary to extrinsic compression
although a discrete mass cannot be excluded.. When the patient can tolerate a fluoroscopic esophagram or endoscopy may be considered as clinically warranted.
09/21/24 last CXR
Previously noted endotracheal tube, no longer identified.
Some patchy bibasilar opacification, left greater than right which could represent pneumonia.
Prior GI Procedures:
EGD: none
Colonoscopy: none
Assessment / Plan
-
Pt is a 69yo with hx cognitive impairment(not downs syndrome per brother) , obesity, NIDDM, hypothyroidism, prior knee replacement with recent admission for UTI and back sores. She was sent to [facility] for rehab and was actually doing very
well. She then presented with admission 09/17 with episode of choking on a hot dog with concern for aspiration. Initially asked to see 09/17 for possible food bolus with no food on CT but some fluid in esophagus Pt had some possible external
compression. She had instability with sepsis requiring intubation then self extubation and was following peripherally and now for formal consult. In review with family no issue with swallowing prior to admission. She will get occasional cough
but not recent problems. No wt loss. no abdominal pain, diarrhea, constipation, or rectal bleeding. Family did not recall any prior EGD or colonoscopy in past. Pt also noted with bradicardia, prolonged CT
-dysphagia
-concern for aspiration with PNA/sepsis after eating hot dog
-s/p intubation then self extubation
-CT chest with possible external compression
-bradycardia/PAC/prolonged QT with cards eval
other med problems:
-hypothyroidism
-DM
-agitation
-cognitive impairment
-obesity
-visual and hearing impairment
PLAN:
etiology of aspiration unclear -- no baseline dysphagia prior to admission per family. Ct with possible extrinsic compression
Plan for family to work with speech today to initial diet
discussed with brother options for work up of esophagram, EGD vs no imaging if recovering without difficulty
if improving can defer esophagram or EGD for Op testing when improved
he will consider options but would proceed with pt still more medically stable from resp standpoint and tolerating diet
cont rx per medial team for PNA/aspiration
-
-
Thank you for consultation and allowing me to participate in the patient's care. Please call the sap bw consultant GI physician during the after hours with any questions or concerns.
[2024-09-21] MEDS: LANTUS SC (10:24)
--- NOTE | 2024-09-21 10:35 | W.PN.CARDCBS ---
Addendum entered and electronically signed by Miki Arizmendi DO 09/21/24 10:52:
I saw and examined the patient.
The Log Rafter's note was reviewed and I agree with the note.
Comment:
Plan:
Remains sinus rhythm/bradycardia with no evidence of heart block.
No indication for PPM
HR and bp stable.
Echo with preserved EF and no significant valve disease
Discussed with nursing
Cont with pulm toilet
Please recall if needed.
Original Note:
Today's Communication / Plan
-
Tele reviewed, SR/SB with PACs, no heart block, no indication for PPM
Impression / Plan
-
PCP: Unknown
Card: None prior to admission
Impression:
Admitted with acute hypoxic respiratory failure 09/17/24
Out of hospital choking event, cleared obstruction at facility 09/16/24
Acute hypoxic respiratory failure
intubated in the ER 09/17/24
self-extubated 09/19/24
Septic shock
Sepsis
Lactic acidosis
Aspiration PNA
Sinus bradycardia
DM 2
Hypothyroid
Bipolar disorder
Echo 09/19/2024: EF 55%, no clear WMA, mild septal hypertrophy, trace MR, mild TR with PAP 46 mmHg
Plan:
-Tele reviewed by me again at length on 09/21/24, patient with SR with PACs. HR increases to 100 at times. No heart block seen on tele.
-No indication for PPM at this time.
-Patient was not taking any AV nicole blockers prior to admission and has not received any this admission.
-Patient was initially on Precedex, then changed to propofol and now off all sedation
-Psychiatric meds reviewed and no indication that they would contribute to bradycardia.
-Recommend eventual outpatient evaluation of AMBER.
-Updated patient's older brother, Kevyn, by phone on 09/20/24.
HPI: Patient came to [facility] ER on Thursday with increased SOB and had acute hypoxic respiratory failure leading to intubation, cardiology is now consulted for sinus bradycardia. Patient is a long-term care resident at [facility],
but apparently previously was living at home with family and home health aides. Patient was eating a hot dog at the halfway on 09/16/2024 and apparently had a choking episode, but the obstruction was cleared at the facility and the patient
appeared to recover and no hospitalization. The following day patient was observed to be more short of breath and hospital staff called 911 and when paramedics arrived the pulse ox was 80% on room air. Patient was started on NRB in the ambulance
and then intubated upon arrival to the ER. Patient was intubated from 09/17/2024 until she self extubated on 09/19/2024. Earlier attempts at weaning sedation resulted in agitation. Patient was initially on Precedex, but this was stopped due to
bradycardia. Patient was then on propofol. Patient now extubated and on NRB. Throughout admission patient has had periods of sinus bradycardia and PACs, but no high-grade heart block. There is no known history of AMBER, but patient is 5 foot 2 and
weighs 236 lbs. Echo performed yesterday as noted above. Patient was not taking any AV nicole blockers prior to admission, but does take regimen of psychiatric medications, but no obvious adverse reaction for bradycardia noted on my review of
up-to-date. Patient's brother updated me about patient's most recent PMH including hospitalization at 2 different hospitals in the [facility] followed by rehab stay at 2 different rehab facilities and then most recently was at [facility] and was
unable to return home right away so transition to long-term care at [facility] and then was enjoying herself and so family decided to let her stay at [facility] even after they arranged for caregivers for her to return home. Patient's
brother does not believe she has ever seen endocrinology, cardiology or psychiatry and that all of the medications she was taking were largely prescribed by a PCP and so he is not sure if she even needs all of the psychiatric medications that she is
prescribed.
Progress Note - Chip Machine Operator
Subjective
Date of Service: September 21, 2024
Opens eyes, but not alert or oriented
Objective
Labs:
09/21/24 03:06
09/21/24 03:06
Labs
Hgb 9.8 g/dL (12.0-16.0) L 09/21/24 03:06
Hct 31.3 % (37.0-47.0) L 09/21/24 03:06
Plt Count 167 10^3/uL (130-400) 09/21/24 03:06
PT 18.4 Sec (11.4-14.6) H 09/18/24 03:08
INR 1.51 09/18/24 03:08
APTT 26.6 Sec (23.4-35.0) 09/18/24 03:08
Sodium 143 mmol/L (135-145) 09/21/24 03:06
Potassium 3.5 mmol/L (3.5-5.1) 09/21/24 03:06
BUN 18 mg/dl (7-17) H 09/21/24 03:06
Creatinine 0.8 mg/dL (0.6-1.0) 09/21/24 03:06
Glucose 84 mg/dl (70-99) 09/21/24 03:06
Vital Signs and I&O:
Vital Signs
Temp Pulse Resp BP Pulse Ox
99.4 F 61 16 127/57 95
09/21/24 07:36 09/21/24 10:00 09/21/24 10:00 09/21/24 10:00 09/21/24 09:00
Vital Signs
Temp Pulse Resp BP Pulse Ox
99.4 F 61 16 127/57 95
09/21/24 07:36 09/21/24 10:00 09/21/24 10:00 09/21/24 10:00 09/21/24 09:00
Intake & Output
09/19/24 09/20/24 09/21/24 07/10/25
06:59 06:59 06:59 06:59
Intake Total 4239.8 / 4367.3 2465.9 / 2573.4 2437.5 / 2697.5 560 / 560
Output Total 1909 / 1949 930 / 970 360 / 360
Balance 2329.8 / 2417.3 1535.9 / 1603.4 2077.5 / 2337.5 560 / 560
Physical Exam
Physical Exam
GEN: NAD. Awakens to voice, but no orientation
LUNGS: BiPAP
CV: SR with PACs on tele.
EXT: +1 non-pitting B/L LE edema. No clubbing, cyanosis or lesions B/L
[2024-09-21 10:57] LABS: Glucose - Point of Care 77 mg/dl (70-99)
[2024-09-21] MEDS: SOLU-CORTEF IV (11:17)
--- NOTE | 2024-09-21 11:17 | W.PN.HOSP.TC ---
Addendum entered and electronically signed by Michael Vaz MD 09/21/24 12:46:
Discussed with RN and carbon coating machine operator. Patient oxygen status continues to be improving and is now on 4 L. She was unable to pass speech evaluation today. Speech to reevaluate tomorrow. Currently NPO. Will transfer to telemetry
Original Note:
Today's Communication/Plan
-
Monitor vital signs see plan
Transition BiPAP to nasal cannula
Off Levophed
Speech to see today, if improves then will restart psychiatric medications
If continues to improve then possible downgrade later today
Discussed with brother
Assessment / Plan
Assessment / Plan
General: appears chronically ill
HEENT: NormoCephalic
Respiratory: Clear to auscultation, no wheeze
Cardiac: S1/S2 and Regular Rhythm
GI: Soft, Non Tender and Non Distended
Musculoskeletal: No Edema
Neuro: unable to access, on bipap
Psych: Agitated
Acute hypoxic hypercapnic respiratory failure secondary to aspiration pneumonia
Intubated 09/17/2024, self extubated 09/19; currently on BiPAP, try weaning to nasal cannula
Continue with empiric antibiotics
History of dysphagia with suspected esophageal stricture; GI following. Was agitated 09/20 with speech evaluation. Will try again today when family is around. If passes speech and swallow evaluation then we will start patient on her psychiatric
medications
If continues to be agitated then consider psychiatric evaluation
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 Management per pulmonary
Septic shock secondary to aspiration pneumonia
Follow-up blood culture NGTD
Legionella, strep neg
Continue with abx
Weaned off Levophed
Weaned off stress dose steroids
Ortiz DC'd
Clear etiology of aspiration is unclear, does have dysphagia listed as her diagnosis from facility. CT with possible extrinsic compression. Defer to GI for possible esophagram, EGD.
Suspect change in mental status admission likely secondary to toxic metabolic encephalopathy
Does have baseline bipolar disease, depression. Per brother she also have cognitive impairment
Continue to monitor
Lactic acidosis
Resolved
Periods of bradycardia with pauses
Echo 09/19 with mild septal hypertrophy, EF 55%. Mitral valve is thickened.
Cardiology following, suspect secondary to likely medications. No plans for pacemaker
Acute metabolic acidosis
Resolved
Hyperglycemia
History of diabetes
A1c 7
Diabetes CHEMICAL ETCH OPERATOR managing
Continue insulin
Hold metformin
History of bipolar disorder, depression Per [facility] point chart
Restart fluoxetine, buspirone, aripiprazole when able and mental status allows
History of asthma
Does not appear to be an asthma exacerbation
Hyperlipidemia
Hypothyroidism
TSH low however normal free T4
Morbid obesity secondary to excess calories
Monitor
GERD
DVT prophylaxis
Lovenox
Full code, discussed with brother
Updated patient's brother, 09/21
I spent a total of 51 minutes with the patient or on the floor. More than 50% of this time involved counseling and coordination of care.
Anticipated Discharge: > 48 hours
Subjective/Interval History
-
Date of Service: September 21, 2024
Intermittently agitated, on BiPAP
Objective Data
-
Labs:
Laboratory Results
09/21/24
03:06
WBC 10.2
Hgb 9.8 L
Hct 31.3 L
Plt Count 167
Sodium 143
Potassium 3.5
Chloride 112 H
Carbon Dioxide 33 H
BUN 18 H
Creatinine 0.8
Glucose 84
Calcium 8.2 L
Total Bilirubin 0.6
AST 28
ALT 20
Alkaline Phosphatase 54
Vital Signs:
Vital Signs
Temp Pulse Resp BP Pulse Ox
97.6 F 61 16 127/57 95
09/21/24 11:16 09/21/24 10:00 09/21/24 10:00 09/21/24 10:00 09/21/24 09:00
I&O
09/20/24 09/21/24 09/22/24
06:59 06:59 06:59
Intake Total 2465.9 / 2573.4 2437.5 / 2697.5 660 / 660
Output Total 930 / 970 360 / 360
Balance 1535.9 / 1603.4 2077.5 / 2337.5 660 / 660
--- NOTE | 2024-09-21 11:41 | PTCARENOTE ---
Addendum entered by Carlton Worthy RN 09/21/24 12:34:
Hypoglycemic event. protocol followed.
Fine Jewelry Sales Associate notified fluids changed to D5/LR.
Original Note:
Failed speech eval.
Per obstetrical nurse will hold off on central line removal.
PT/OT consult.
[2024-09-21 12:15] LABS: Glucose - Point of Care 69 mg/dl (70-99)
[2024-09-21] MEDS: NOVOLOG FLEXPEN-LOW RESISTANCE SC ×2 (12:20→18:32)
[2024-09-21 12:29] LABS: Glucose - Point of Care 124 mg/dl (70-99)
[2024-09-21] MEDS: D5/0.45%NACL 1000 IV ×2 (12:44→18:12)
[2024-09-21 14:11] LABS: Glucose - Point of Care 85 mg/dl (70-99)
[2024-09-21] MEDS: ADVAIR HFA 115/21 MCG INHALER INH (14:13)
[2024-09-21 15:48] LABS: Glucose - Point of Care 91 mg/dl (70-99)
--- NOTE | 2024-09-21 16:13 | CM ---
Transitioned from BiPAP to NC. IV/Zosyn, No Therapy needs. Soft wrist restraints. Discharge POC: Return to [facility] for resumption of LTC.
[2024-09-21] MEDS: VALIUM INJECTION 4 MG IV (17:51)
[2024-09-21 18:10] LABS: Glucose - Point of Care 91 mg/dl (70-99)
--- NOTE | 2024-09-21 18:16 | PTCARENOTE ---
Pt agitated upon transfer to tele.
Hospitalist notified, IV valium given.
Floor RN made aware, pt. transferred to room via to CC RNs.
[2024-09-21] MEDS: LOVENOX 40 MG SC (18:31)
[2024-09-21] MEDS: ADVAIR HFA 115/21 MCG INHALER 2 PUFF INH (20:21)
[2024-09-21] MEDS: LIDOCAINE 4% PATCH 1 PATCH TOPICAL (20:38)
[2024-09-21 21:21] LABS: Glucose - Point of Care 84 mg/dl (70-99)
[2024-09-22] MEDS: ZOSYN 50 IV ×5 (01:00→23:47)
[2024-09-22 01:01] LABS: Glucose - Point of Care 107 mg/dl (70-99)
[2024-09-22] MEDS: NOVOLOG FLEXPEN-LOW RESISTANCE SC ×2 (01:04→07:08)
[2024-09-22 05:48] LABS: Glucose - Point of Care 112 mg/dl (70-99)
[2024-09-22 07:00] VITALS: BP 106/48
--- NOTE | 2024-09-22 07:29 | W.PN.HOSP.TC ---
Addendum entered and electronically signed by Alonso Elizondo MD 09/22/24 15:23:
I came in and reevaluated patient in the afternoon with family at bedside. She looks clinically better overall. She looks more calm, less tachypneic, using 6 L of oxygen. She also had speech therapy at bedside and she passed her swallow eval so we
will start her on diet. Discussed with brother at bedside. Discussed with pulmonary. Discussed with attending RN.
Original Note:
Today's Communication/Plan
-
High flow oxygen. IV antibiotics. Transfer to IMU
Assessment / Plan
Assessment / Plan
General: appears chronically ill
HEENT: NormoCephalic
Respiratory: Clear to auscultation, no wheeze
Cardiac: S1/S2 and Regular Rhythm
GI: Soft, Non Tender and Non Distended
Musculoskeletal: No Edema
Neuro: unable to access, on bipap
Psych: Agitated
A/P:
Worsening acute hypoxic respiratory failure today on 09/22:
Came and evaluated immediately
Obtained chest x-ray stat and shows worsening right upper lobe density
Obtain stat ABG and shows no hypercapnia but it shows widening AA gradient
Discussed with RN
Discussed with respiratory therapist
Discussed with pulmonary
Increased oxygen supplementation
Started on BiPAP 28/07 but patient has not been able to tolerate well. Will start high flow oxygen instead
Continue IV antibiotic-renewed orders of IV Zosyn.
Remains NPO. IV fluids. Will reevaluate if need low dose of IV diuretics.
Transfer back to IMU today
Will discuss with family this afternoon
Prior to today:
Acute hypoxic hypercapnic respiratory failure secondary to aspiration pneumonia
Intubated 09/17/2024, self extubated 09/19; currently on BiPAP, try weaning to nasal cannula
Continue with empiric antibiotics
History of dysphagia with suspected esophageal stricture; GI following. Was agitated 09/20 with speech evaluation. Will try again today when family is around. If passes speech and swallow evaluation then we will start patient on her psychiatric
medications
If continues to be agitated then consider psychiatric evaluation
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 Management per pulmonary
Hypokalemia:
Replete and trend
Septic shock secondary to aspiration pneumonia
Follow-up blood culture NGTD
Legionella, strep neg
Continue with abx
Weaned off Levophed
Weaned off stress dose steroids
Ortiz DC'd--> Reordered Ortiz 09/22 due to tenuous resp status and critical I/O and can reeval to d/c down the road
Clear etiology of aspiration is unclear, does have dysphagia listed as her diagnosis from facility. CT with possible extrinsic compression. Defer to GI for possible esophagram, EGD.
Suspect change in mental status admission likely secondary to toxic metabolic encephalopathy
Does have baseline bipolar disease, depression. Per brother she also have cognitive impairment
Continue to monitor
Lactic acidosis
Resolved
Periods of bradycardia with pauses
Echo 09/19 with mild septal hypertrophy, EF 55%. Mitral valve is thickened.
Cardiology following, suspect secondary to likely medications. No plans for pacemaker
Acute metabolic acidosis
Resolved
Hyperglycemia
History of diabetes
A1c 7
Diabetes BLUNGER LOADER managing
Continue insulin
Hold metformin
History of bipolar disorder, depression Per [facility] point chart
Restart fluoxetine, buspirone, aripiprazole when able and mental status allows
History of asthma
Does not appear to be an asthma exacerbation
Hyperlipidemia
Hypothyroidism
TSH low however normal free T4
Morbid obesity secondary to excess calories
Monitor
GERD
DVT prophylaxis
Lovenox
Full code, discussed with brother
Updated patient's brother, 09/22
Total Critical Care Time__45___ minutes. I was immediately available to the patient and staff. I personally examined, reviewed labs, diagnostic images/reports, interpretations, treatment plans, discussed patient care with other providers and
family or caregivers (if patient is unable to make decisions), entered orders as appropriate and documented the medical record.
Anticipated Discharge: > 48 hours
Subjective/Interval History
-
Date of Service: September 22, 2024
Patient more short of breath and hypoxic today. Patient agitated on and off.
Objective Data
-
Labs:
Laboratory Results
09/22/24
06:00
WBC Pending
Hgb Pending
Hct Pending
Plt Count Pending
Sodium Pending
Potassium Pending
Chloride Pending
Carbon Dioxide Pending
BUN Pending
Creatinine Pending
Glucose Pending
Calcium Pending
Total Bilirubin Pending
AST Pending
ALT Pending
Alkaline Phosphatase Pending
Vital Signs:
Vital Signs
Temp Pulse Resp BP Pulse Ox
97.9 F 89 16 150/51 93
09/21/24 23:30 09/21/24 23:30 09/21/24 23:30 09/21/24 23:30 09/21/24 23:30
I&O
09/21/24 09/22/24 09/23/24
06:59 06:59 06:59
Intake Total 2437.5 / 2697.5 1100 / 1100
Output Total 360 / 360
Balance 2077.5 / 2337.5 1100 / 1100
--- NOTE | 2024-09-22 07:32 | PN.DE.MGMTRT ---
Insulin Management
- -
09/22/2024: Diabetes Management Consult Follow up
Patient admitted 09/17 with acute respiratory distress. PMH: Down syndrome who reportedly had a choking episode on a hot dog with possible aspiration of oral contents. 09/17 in the ED patient was unresponsive requiring intubation- mechanical
ventilation due to Acute hypoxic hypercapnic respiratory failure 2/2 aspiration pneumonia/sepsis. Prior to admission, was taking Lantus 30 units daily, Lispro 12 units AC and Metformin 1000mg BID. A1C 7%, Cr 0.7, eGFR >60.
Patient is awake, confused, restless, unable to answer questions. Discussed with nurse. Patient has limited insight as to her diabetes care.
Pt remains NPO.
09/21 Fasting glucose 87. Patient received no lantus or corrective insulin. Steroids stopped. Glucose range 85 to 124.
09/22 Fasting glucose 112, patient remains NPO. Will HOLD lantus until diet is resumed, will continue low corrective insulin only.
Discussed with Nurse.
Will cont to follow.
Diabetes History
- -
Type of Diabetes: 2 requiring insulin
Pre-Admission Diabetes Regimen
Lab Results
Hemoglobin A1c 7.0 % (4.0-5.6) H 09/18/24 12:18
Insulin Pump Settings
IP Diabetes Regimen
09/21/24 09/21/24 09/21/24
08:36 10:46 12:04
POC Glucose 87 77 69 L
09/21/24 09/21/24 09/21/24
12:18 14:00 15:37
POC Glucose 124 H 85 91
09/21/24 09/21/24 09/22/24
18:08 21:19 00:59
POC Glucose 91 84 107 H
09/22/24
05:46
POC Glucose 112 H
Meal type: Dinner
Patient Education
[2024-09-22] MEDS: ADVAIR HFA 115/21 MCG INHALER 2 PUFF INH (07:43)
[2024-09-22] MEDS: DUONEB 3 ML INH (07:45)
[2024-09-22 08:26] VITALS: PULSE 2; PULSE 69
[2024-09-22 08:26] LABS: Glucose - Point of Care 147 mg/dl (70-99)
--- NOTE | 2024-09-22 08:31 | RESPNOTE ---
patient tachypneic on assessment for scheduled inhaler, RR 26-30, SpO2 92-93% on 6L. BS diminished with scat rhonchi. gave prn duoneb treatment with no relief. pt also complains 'breathing feels weird.' patient in restraints and was unable to wear
bipap overnight ( no 1:1 available). placed on bipap 15/5 6L, SpO2 improved to 96%. however patient moaning and agitiated saying ' take it off' referring to bipap. no prn agitation medication available, TT to Dr. Elizondo and Dr. Blount.
[2024-09-22 09:04] LABS: B.E. 2.1 mmol/L; HCO3 27.3 mmol/L (21-28); O2 Saturation % 98.4 % (94-98); PCO2 44 mmHg (32-35); PO2 76 mmHg (83-108)
[2024-09-22] MEDS: MIRALAX TUBE (09:04)
[2024-09-22] MEDS: DESENEX/MITRAZOL/ZEASORB 1 APPLIC TOPICAL ×2 (09:10→20:12)
[2024-09-22] MEDS: NSS (PRESERVATIVE FREE) 10 ML IV (09:12)
[2024-09-22] MEDS: PROTONIX IV 40 MG IV (09:13)
[2024-09-22 10:26] LABS: Hematocrit 36.3 % (37.0-47.0); Hemoglobin 11.7 g/dL (12.0-16.0); Mean Corp Hgb Conc. 32.2 g/dL (33.0-37.0); Mean Corpuscular Volume 95.0 fL (81.0-99.0); Nucleated Red Blood Cells % 0 %; Red Cell Dist. Width 15.5 % (11.5-14.5)
--- NOTE | 2024-09-22 10:50 | W.PN.PUL3 ---
Today's Communication / Plan
-
Avoid BiPAP tonight given worsening multifocal pneumonia with etiology presumed to be aspiration
Check blood gas tomorrow to assure pH + pCO2 remained stable
Continue supplemental O2, maintaining SpO2 >90-94%
Continue aspiration precautions
Given concern for aspiration with possible esophageal dysphagia, would check esophagram tomorrow to evaluate for dysphagia; if abnormal, contact GI for reevaluation
Continue Advair + prn DuoNebs
Continue antibiotics, completing 10-14 days assuming she continues to clinically improve and remains afebrile for 48 hours prior to stopping antibiotics
Earlier this morning, she was more short of breath, placed onto BiPAP with hypoxia, but now this has improved and she is stable on 6 L per nasal cannula; no need for higher level of care at this time
Recommend outpatient pulmonary office follow-up to discuss sleep disordered breathing
Pulmonary service will continue to follow
Assessment
-
69-year-old non-smoking female with Down syndrome who reportedly had a choking episode on a hot dog yesterday but no obvious aspiration of the hot dog but possible aspiration of oral contents presented with obtundation requiring intubation
mechanical ventilation-grant administrator consulted for ventilator/aspiration pneumonia/sepsis/critical care management 09/18/2024.
Ventilator dependent respiratory failure secondary to aspiration pneumonia and hypoxemic/hypercapnic respiratory failure
Intubated 09/17/24
Extubated 09/19/24 (self extubated)
Septic shock due to multifocal pneumonia due to suspected aspiration (shock state resolved)
Dysphagia with suspected esophageal stricture
Leukocytosis
Metabolic acidosis - resolved
DM type II c/b hyperglycemia
Lactic acidosis - resolved
Elevated total bilirubin - resolved
Conditions present prior to admission:
Down syndrome.
Dysphagia.
Obesity-BMI 41
AMBER suspected.
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
Plan/recommendations
Patient has markedly improved, although this morning (09/22), she was extremely agitated, tachypneic, and CXR showed a worsening right upper lobe pneumonia with worsening left-sided pneumonia
She possibly developed this while she was very agitated, possibly aspirated while on BiPAP
Given her aspiration risk, would try to avoid BiPAP tonight as this may increase her aspiration risk
Interestingly, per the family, she has had no swallowing issues prior to this admission hence unlikely has an underlying esophageal issue. GI had seen the patient on 09/21, and recommended a barium esophagram if concerning for esophageal dysphagia
persists
Now that patient is extubated, would consider obtaining esophagram tomorrow (09/23) to further evaluate for dysphagia
Continue to trend serial blood gas to assure pH + pCO2 remained stable
FAMILY MEDICINE PHYSICIAN ASSISTANT evaluated her today (09/22), and cleared her for IDDSI level 5 diet with thin liquids
Continue with aspiration precautions, keeping HOB >30-45�
On CTA chest from day of admission on 09/17/2024, she had multifocal opacities involving the right upper lobe, lingula + left lower lobe with small amounts of tree-in-bud nodular opacities/infiltrates in the right lower lobe - suspect aspiration
She does have a good cough, however becomes easily agitated pleasant anxious with care
Of note, she was a difficult intubation and required a #6 ETT
Continue with antibiotics, currently on Zosyn - would complete a 10-14 day course given she was on vasopressors with septic shock
Blood cultures collected on 09/17 show NGTD
Urinations for Legionella + strep pneumonia both negative
Collect sputum culture if patient can produce a decent sample, although may be a moot point considering patient's been on antibiotics since 09/17, and remains afebrile
She is on Wixela and you have as an outpatient, and we will continue with Advair HFA 150 mcg while hospitalized
Continue prn DuoNebs
Monitor agitation
Try to avoid benzodiazepines as this would help agitation in the short-term but has high risk of acute respiratory depression and causing rebound agitation
Psychiatry on board and recs appreciated
Continue with prn Risperdal, however if patient not cooperating then would administer Zyprexa IM but would need to monitor (QTc 510 ms today)
Earlier in hospitalization she had elevated pCO2 at 50, however she was lethargic at this time hence unclear if she has chronic hypercapnia
Given her obesity, she is truly at risk of obesity hypoventilation + AMBER
Can discuss sleep disordered breathing as an outpatient, although unclear if it is safe to start chronic PAP therapy considering multifocal pneumonia during current hospitalization which is thought to be from aspiration
Maintain MAP>65
While in the ICU, intermittent bradycardia noted, more pronounced with sleep
Cardiology correspondence reviewed � there was no evidence of heart block, and no indication for pacemaker; cardiology has since signed off on 09/21
Maintain euglycemia with goal BG >100 and <180 mg/dL
Continue basal�bolus SQ insulin dosing to maintain BG goal as above
Diabetic RAILWAY SIGNAL ELECTRICIAN following
DVT prophylaxis: LMWH
GI prophylaxis: On Protonix (home medication)
PT saw the patient on 09/21 and no skilled PT was recommended at that time
Pulmonary service will continue to follow along.
Diagnostic data:
Chest x-ray 09/17/2024-bilateral pneumonia left greater than right
CT chest 09/17/2024-no evidence for central or segmental pulmonary emboli, bilateral perihilar consolidations consistent with multifocal pneumonia and 9 mm nodule opacification superior left upper lobe may be infectious in nature though follow-up
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
discrete mass cannot be excluded
Total time spent today was 78 minutes for this encounter. Time includes reviewing laboratory test/imaging results, reviewing pertinent medical records, obtaining and reviewing medical history, performing an appropriate exam, ordering medications,
tests and procedures. Time also includes documentation of this encounter, coordinating patient care and communicating with other healthcare professionals. Total time does not include separately billed tests performed on this date of service.
Subjective Data
-
Date of Service:
Date of Service: September 22, 2024
Chief Complaint: Pulmonary Follow Up
Subjective:
Patient was seen and evaluated this morning. Transferred out of the ICU yesterday and was agitated upon this transfer. IV Valium given. She wore 6 L/min nasal cannula overnight as she needed to be restrained and there was no 1:1 available to be
in the room with her.
This morning, patient was tachypneic and placed onto BiPAP 15/5 bled with 6 L/min. Also given a DuoNeb treatment but this did not improve her shortness of breath. She did not like the BiPAP, getting increasingly more agitated. She was taken off
BiPAP at 10:30 AM, and was able to be weaned down to 6 L/min via nasal cannula. Less agitated now. Patient's brother, Kevyn, and nephew, Will, both present at bedside.
According to the nurse, the patient was screaming this morning and very restless/agitated. She is currently calm, answering questions appropriately, occasionally confused, which per the family said is usual for her, and she was currently denies
chest pain, or abdominal pain.
Review of Systems
General: Other (Unable to obtain as patient is occasionally confused)
Objective Data
Data Reviewed
Vital Signs / I&O / Oxygen:
Vital Signs
Temp Pulse Resp BP Pulse Ox
99.2 F 77 24 106/48 93
09/22/24 07:00 09/22/24 07:00 09/22/24 07:49 09/22/24 07:00 09/22/24 07:49
Intake and Output
09/21/24 09/22/24 09/23/24
06:59 06:59 06:59
Intake Total 2437.5 / 2697.5 1100 / 1100
Output Total 360 / 360
Balance 2077.5 / 2337.5 1100 / 1100
SaO2 [A/C] 98
SaO2 93
Nasal Cannula flow liters per 6
minute
Physical Exam
General: Respiratory Distress (negative), Comfortable, Chills (negative) and Sweats (negative)
HEENT: Normocephalic, Anicteric and Other (Thick neck)
Cardiovascular: S1-S2, Rub (negative) and Peripheral Edema (negative)
Respiratory: Wheeze (negative), Crackles (Bilateral), Rhonchi (negative), Non-Labored Respirations and Stridor (negative)
GI: Soft, Distended (Abdominal obesity), Non Tender and Normal Bowel Sounds
Neurology: Awake, Alert, Tremors (negative) and Other (Confused at times)
Skin: Warm, Dry and Other (Morbidly obese female, in NAD)
Labs/Micro/Reports
Laboratory Results
09/22/24
08:57
pH 7.40
pCO2 44 H
pO2 76 L
HCO3 27.3
O2 Delivery Level
Microbiology
09/17/24 17:24 Blood/Venous Blood Culture - Preliminary
No Growth in 4 days- Final report to follow
09/17/24 17:22 Blood/Venous Blood Culture - Preliminary
No Growth in 4 days- Final report to follow
09/17/24 21:06 Urine Urine Culture - Final
No Significant Growth
09/18/24 16:24 Urine Legionella Urinary Antigen - Final
Negative for Legionella pneumophila Serogroup 1 antigen.
A negative result does not rule out the possiblity of
Legionella infection due to other serogroups or species of
Legionella. Clinical correlation is recommended.
09/18/24 16:24 Urine Streptococcus pneumoniae Antigen (M - Final
Negative for Streptococcus pneumoniae antigen.
A negative result does not exclude infection with
Streptococcus pneumoniae. Clinical correlation is
recommended.
[2024-09-22 11:00] VITALS: BP 149/68
[2024-09-22 11:29] LABS: Platelet Count 127 10^3/uL (130-400)
[2024-09-22 11:44] LABS: ALT (SGPT) 22 U/L (0-35); AST (SGOT) 29 U/L (14-36); Albumin 2.9 g/dl (3.5-5.0); Alkaline Phosphatase 76 U/L (38-126); Blood Urea Nitrogen 12 mg/dl (7-17); Calcium 8.1 mg/dl (8.4-10.2); Carbon Dioxide 27 mmol/L (22-30); Chloride 107 mmol/L (98-107); Estimated Creatinine Clearance 90 ml/min; Glucose 178 mg/dl (70-99); Potassium 3.3 mmol/L (3.5-5.1); Sodium 141 mmol/L (135-145); Total Protein 5.7 g/dl (6.3-8.2); eGFR > 60.00
[2024-09-22] MEDS: REMOVE LIDOCAINE PATCH 1 PATCH REMOVE (12:16)
[2024-09-22] MEDS: KCL 270 MEQ IV ×2 (12:16→21:54)
[2024-09-22 12:39] LABS: Glucose - Point of Care 181 mg/dl (70-99)
[2024-09-22] MEDS: NOVOLOG FLEXPEN-LOW RESISTANCE 1 UNITS SC ×2 (12:40→18:13)
--- NOTE | 2024-09-22 13:21 | CON.MD ---
Consultation - Medical
-
patient seen chart reviewed. case discussed with nursing. family including brother and nephew were at bedside. this consult is being done today september 22 2024. the patient is not a good historian although she was pleasant throughout. her speech is
rather dysarthric which is not normal for her according to the family and even they had some difficulty understanding her. she did not seem to have impairment of movement of any of her limbs however and did not complain of other sx which might
suggest stroke. this consult was ordered for agitation. she had been in restraints several times since admit. she is here w cc of 'breathing problem' and may have aspirated after choking on a hot dog. chest xray did suggest pneumonia . also noted
fluid in the esophagus which could be related to the lung infection but could not rule out mass. she was intubated for several days then self extubated. since that time she has continued to be sob. nursing reports earlier this am she was very
tachypneic but once bipap initiated she improved and when i saw her she appeared comfortable. with family at bedside we were able to remove her wrist restraints. family did note extensive bruising on both forearms unclear if secondary to straining
at restraints or extravasating from iv sites. family feels that she is more agitated with restraints although they were understanding when i explained why restraints. brother was able to give me history. she is NOT down's syndrome. she is learning
disabled and likely has intellectual disability. the down's label came when she was hospitalized and her face was very swollen and he said even to him she looked as thought she could have been down's. (he worked for years in the ID community so has
some perspective.)she has always been in special ed but until recent years she lead an active live. she had a waver from ID services enabling her to live in her own place with considerable input from social workers and vna. she even had a bf for
many years until section 8 insisted he leave as her contract was for 'one' tenant. then he disappeared but they were inseparable for many years. she was hospitalized some months ago when she developed a uti and was very delirious at that time
requiring antipsychotics. she was discharged but hospitalized again for another infection and this time dc'ed to [facility]. they considered her return to her own place but [place] really liked the interactions with others at the [place]. 'she
would talk to everyone..the housekeeping people, nursing and loved the bingo' she was actually doing pretty well until she ate the hot dog! brother asked about the abilify she was taking. he was told meds were continued as they had been in the
hospital including abilify 2 mg prozac 40 mg buspar 5 mg tid trazodone 50 mg q hs. 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 patient did not complain of being depressed or anxious today. there was
no overt psychosis that i could see. patient did seem however to be confused. she could not tell me she why she was here or even why she was in a hospital. she did recognize her brother and called him by his name patient is being assessed by
speech later today and is currently npo
past psych hx no psych hospitalizations. she has been on antipsychotics several times including vraylar and abilify. these seem to be related to in hosp delirium
medical hx see above re pneumonia. patient likely to be tf to imu later today although has improved since early this am. iddm gerd obesity possible guy dysphagia hypothyroid hay fever hld anemia w hg 9.8 yesterday 11+ today tsh nl t4 free nl
urine culture NG bp 106/48 cxr see above prolonged qtc nocturnal bradycardia possibly related to guy gerd
fh nephew w psych illness
substance abuse none
social see above supportive family lives at [facility]
mse alert but oriented only to person. speech dysarthric and difficult to explain thought process seems confused no overt psychosis mood seemed euthymic to me affect ok no si borderline intellect likely insight judgment impaired
dx tme secondary to medical issues intellectual disability
plan for now would use risperdal o.5 mg q 8h prn agitation but would use sparingly. would also use restraints as sparingly as possible given significant bruising. need to use m tabs as npo. when she is able to take po meds would resume only prozac
40 mg for now given trichotillomania. would not resume buspar or trazodone for now. would use melatonin for sleep if needed. not clear to me that she would need to be treated with antipsychotics once medical illness improves . if her speech does
not return to normal need to consider whether there is something else causing dysarthria. will follow
--- NOTE | 2024-09-22 13:58 | CM ---
Addendum entered by Irish Blackburn RN 09/22/24 14:25:
Per Isabel, admissions liaison, patient is LT and no auth required.
Original Note:
Reviewed the chart notes and spoke with the patient and family at the bedside. Per family, plan is back to [facility]. Message left for admissions liaison Isabel regarding bed hold status. CM continues to be available to patient/family and is
monitoring medical plan for needs at discharge.
Plan: Discharge back to [facility] once medically stable.
--- NOTE | 2024-09-22 14:45 | PTOTSP ---
Speech Language Pathology
Pt seen for dysphagia tx. Brother and nephew at bedside. Pt verbalizing and joking. Sat upright in bed. P.O. trials of puree, minced/moist solids, and thin liquids provided. With consecutive sips of thin liquids, cough noted. Cough also noted
with single sip x1. Tolerated additional 10 single sips without overt coughing. Prolonged mastication, bolus formation, and A-P transit noted with trace oral residue. She cleared residue with verbal cueing or liquid wash. Instrumental swallow
assessment would likely be limited view given body habitus, and participation uncertain, so will hold at this time, but can consider as needed.
Recommend:
(1) IDDSI Level 5 (minced/moist) and thin liquids
(2) Aspiration precautions: sit upright, slow rate, single sips only (pinch straw if needed)
(3) Meds crushed in puree as able
(4) TAKE AWAY WORKER to continue to follow
[2024-09-22 15:00] VITALS: BP 161/87
[2024-09-22] MEDS: RISPERDAL M-TAB (ORALLY DISINTEGRATING) 0.5 MG PO (16:42)
[2024-09-22] MEDS: LOVENOX 40 MG SC (17:06)
[2024-09-22 17:27] LABS: Glucose - Point of Care 178 mg/dl (70-99)
--- NOTE | 2024-09-22 18:44 | W.PN.UPDATE ---
Update Note
Progress Note Update
Patient episodes of NSVT. Ordered BMP and Magnesium stat and discussed with RN. Will need replacement of electrolytes as appropriate to keep K >4 and Mg >2. Reviewed recent echo with normal EF and today 12 lead EKG NSR RBBB with multiple APC's and
QTc 500. Cont cardiac monitoring and repeat EKG in am.
[2024-09-22 19:05] VITALS: BP 121/90
[2024-09-22 20:10] LABS: Blood Urea Nitrogen 11 mg/dl (7-17); Calcium 8.2 mg/dl (8.4-10.2); Carbon Dioxide 25 mmol/L (22-30); Chloride 107 mmol/L (98-107); Estimated Creatinine Clearance 104 ml/min; Glucose 194 mg/dl (70-99); Magnesium 1.7 mg/dl (1.6-2.3); Potassium 3.4 mmol/L (3.5-5.1); Sodium 139 mmol/L (135-145); eGFR > 60.00
[2024-09-22] MEDS: ZYPREXA 2.5 MG IM (20:32)
[2024-09-22] MEDS: STERILE WATER FOR INJECTION 2.1 ML IM (20:32)
[2024-09-22] MEDS: LIDOCAINE 4% PATCH 1 PATCH TOPICAL (21:17)
[2024-09-22] MEDS: ADVAIR HFA 115/21 MCG INHALER INH (21:35)
[2024-09-22] MEDS: MAGNESIUM SULFATE 50 IV (21:54)
[2024-09-22 21:57] LABS: Glucose - Point of Care 226 mg/dl (70-99)
[2024-09-22 23:35] VITALS: BP 125/68
[2024-09-23] VITALS (11 sets, daily range): BP systolic 122–164; BP diastolic 45–91; PULSE 2–72; O2SAT 88–92; BMI 43.1
--- NOTE | 2024-09-23 03:10 | PTCARENOTE ---
Pt became restless , anxious and agitated. Pt was pulling off her tele monitor and attempted to pull her midline. BIODIESEL PROCESSING TECHNICIAN conventional underwriter notified and was given 2.5 mg IM Zyprexa. Potassium was low. Mag and potassium rider order. Pt was able to calm down. Pt is
NSR w/ BBB and PAC. Pt remains 1:1 and call traore within reach.
[2024-09-23] MEDS: RISPERDAL M-TAB (ORALLY DISINTEGRATING) 0.5 MG PO ×3 (03:35→22:48)
[2024-09-23] MEDS: SYNTHROID 125 MCG PO (03:39)
[2024-09-23] MEDS: ZOSYN 50 IV ×4 (05:01→23:03)
[2024-09-23 05:04] LABS: Venous Blood Gas B.E. 1.1 mmol/L (-4 to +4); Venous Blood Gas O2 Sat % 99.9 %
[2024-09-23 05:23] LABS: Hematocrit 33.5 % (37.0-47.0); Hemoglobin 10.8 g/dL (12.0-16.0); Mean Corp Hgb Conc. 32.2 g/dL (33.0-37.0); Mean Corpuscular Volume 95.7 fL (81.0-99.0); Nucleated Red Blood Cells % 0 %; Platelet Count 187 10^3/uL (130-400); Red Cell Dist. Width 15.4 % (11.5-14.5)
[2024-09-23 05:36] LABS: Blood Urea Nitrogen 12 mg/dl (7-17); Calcium 7.7 mg/dl (8.4-10.2); Carbon Dioxide 26 mmol/L (22-30); Chloride 109 mmol/L (98-107); Estimated Creatinine Clearance 88 ml/min; Glucose 213 mg/dl (70-99); Magnesium 2.2 mg/dl (1.6-2.3); Potassium 3.8 mmol/L (3.5-5.1); Sodium 141 mmol/L (135-145); eGFR > 60.00
[2024-09-23] MEDS: LASIX 20 MG IV (06:02)
--- NOTE | 2024-09-23 07:37 | PN.DE.MGMTRT ---
Insulin Management
- -
09/23/2024: Diabetes Management Follow up
Patient admitted 09/17 with acute respiratory distress. PMH: Down syndrome who reportedly had a choking episode on a hot dog with possible aspiration of oral contents. 09/17 in the ED patient was unresponsive requiring intubation- mechanical
ventilation due to Acute hypoxic hypercapnic respiratory failure 2/2 aspiration pneumonia/sepsis. Prior to admission, was taking Lantus 30 units daily, Lispro 12 units AC and Metformin 1000mg BID. A1C 7%, Cr 0.7, eGFR >60.
Patient is awake, alert, oriented, sitting up in bed, able to answer questions and discuss diabetes care plan, has limited insight as to her diabetes care.
Steroids stopped on 09/21, started on puree diet yesterday. HS glucose up to 226. 09/23 Fasting glucose 213 V, 226 POC this AM.
Will resume Lantus now that she has been started on a diet.
Give Lantus 15 units NOW. Start AC NovoLog 5 units AC, 1st dose NOW. Cont low corrective insulin AC.
Anticipate higher insulin requirements, was taking Lantus 30 units and Lispro 12 units TID
Will cont to monitor and adjust insulin dose if necessary. Discussed with Nurse.
Diabetes History
- -
Type of Diabetes: 2 requiring insulin
Pre-Admission Diabetes Regimen
09/22/24 09/22/24 09/22/24
08:59 10:54 19:12
Creatinine Cancelled 0.7 0.6
09/23/24
04:58
Creatinine 0.7
Lab Results
Hemoglobin A1c 7.0 % (4.0-5.6) H 09/18/24 12:18
Insulin Pump Settings
IP Diabetes Regimen
09/22/24 09/22/24 09/22/24
08:24 08:59 10:54
Glucose Cancelled 178 H
POC Glucose 147 H
09/22/24 09/22/24 09/22/24
12:37 17:25 19:12
Glucose 194 H
POC Glucose 181 H 178 H
09/22/24 09/23/24
21:56 04:58
Glucose 213 H
POC Glucose 226 H
Meal type: Lunch
Amount consumed: 0
Patient Education
--- NOTE | 2024-09-23 07:53 | W.PN.HOSP.TC ---
Today's Communication/Plan
-
IV antibiotics. Esophagogram.
Assessment / Plan
Assessment / Plan
Physical exam:
General: Acute on chronically ill. Obese
HEENT: Normocephalic, Atraumatic and Moist Mucous Membranes
Respiratory: Bilateral crackles, no wheezes or rhonchi
Cardiac: Regular Rhythm and S1/S2
GI: Soft, Nontender and Nondistended
Musculoskeletal: No Clubbing, No Cyanosis. Bilateral trace lower extremity edema
Neuro: Awake, Alert, disoriented, generalized weakness, no neurological deficits
Psych: Anxious, cognitive deficits present
A/P:
Acute hypoxic respiratory failure:
Appears to be multifactorial likely aspiration pneumonia, volume overload, other
On antibiotics
Given IV Lasix this morning
At some point patient was intubated and self extubated.
On supplemental oxygen
Will probably repeat chest x-ray in 24 to 48 hours
Pulmonary on board
Discussed with brother at bedside yesterday
PT OT eval
Aspiration pneumonia:
Continue IV antibiotics-will aim for a prolonged course of 10 to 14 days if remains afebrile for 48 hours
Speech therapy following-on IDDSI level 5
GI evaluated the patient and felt there was no need for further GI intervention unless significant pathology on images. Will attempt to do esophagogram today for further evaluation.
NSVT:
Keep potassium above 4 and magnesium above 2
Reviewed echocardiogram, normal EF.
QTc prolongation:
Avoid QTc prolonging medications
Cardiac monitoring
Reviewed serial twelve-lead EKG
Hypokalemia:
Replete and trend
Hypomagnesemia:
Replete and trend
Septic shock secondary to aspiration pneumonia
Resolved
Suspect change in mental status admission likely secondary to toxic metabolic encephalopathy
Does have baseline bipolar disease, depression. Per brother she also have cognitive impairment/intellectual disability
Psychiatry evaluated the patient-will defer to psychiatry in terms of antidepressants, antipsychotics, sleeping aids.
Lactic acidosis
Resolved
Transient bradycardia
Resolved
Acute metabolic acidosis
Resolved
Diabetes mellitus
A1c 7
Diabetes RN INTERN on board
Continue insulin sliding scale
Restart long-acting insulin since patient tolerating diet
Hold metformin
History of asthma
Does not appear to be an asthma exacerbation
Hyperlipidemia
Restart statins
Hypothyroidism
Restarted thyroid replacement
Morbid obesity secondary to excess calories
Monitor
GERD
Continue oral PPI
DVT prophylaxis
Lovenox SQ
CODE STATUS
Full code
Total time spent on today's encounter was 52 minutes which included time spent in counseling the patient/family regarding diagnosis and treatment plan as listed above, goals of care, and symptom management. Case was discussed with nursing staff,
specialists, and care coordinators/case management. All labs and imaging personally reviewed by me. Remainder the time spent in detailed review of previous records, lab data, imaging, and other medical provider documentation.
Anticipated Discharge: > 48 hours
Subjective/Interval History
-
Date of Service: September 23, 2024
Patient on supplemental oxygen. She was talking to her aide but at time of my evaluation and was working with a word puzzle
Objective Data
-
Labs:
Laboratory Results
09/22/24 09/23/24
19:12 04:58
WBC 11.9 H
Hgb 10.8 L
Hct 33.5 L
Plt Count 187 D
Sodium 139 141
Potassium 3.4 L 3.8
Chloride 107 109 H
Carbon Dioxide 25 26
BUN 11 12
Creatinine 0.6 0.7
Glucose 194 H 213 H
Calcium 8.2 L 7.7 L
Vital Signs:
Vital Signs
Temp Pulse Resp BP Pulse Ox
98.8 F 72 18 154/76 96
09/23/24 03:55 07/11/25 06:02 09/23/24 03:55 09/23/24 06:02 09/23/24 03:55
I&O
09/22/24 09/23/24 09/24/24
06:59 06:59 06:59
Intake Total 1100 / 1100 660 / 660
Output Total 1000 / 1000
Balance 1100 / 1100 -340 / -340
[2024-09-23 08:16] LABS: Glucose - Point of Care 226 mg/dl (70-99)
[2024-09-23] MEDS: ADVAIR HFA 115/21 MCG INHALER 2 PUFF INH ×2 (08:25→20:18)
[2024-09-23] MEDS: KCL 40 MEQ PO (08:44)
[2024-09-23] MEDS: NOVOLOG FLEXPEN 5 UNITS SC ×3 (08:44→17:18)
[2024-09-23] MEDS: NOVOLOG FLEXPEN-LOW RESISTANCE 2 UNITS SC (08:45)
[2024-09-23] MEDS: PROTONIX 40 MG PO (08:45)
[2024-09-23] MEDS: LANTUS 0.15 UNITS SC (08:47)
[2024-09-23] MEDS: DESENEX/MITRAZOL/ZEASORB 1 APPLIC TOPICAL ×2 (08:49→20:02)
[2024-09-23] MEDS: MIRALAX TUBE (08:50)
--- NOTE | 2024-09-23 09:10 | W.PN.PUL3 ---
Addendum entered and electronically signed by José Luis Blount MD 09/23/24 20:06:
proBNP today is significantly elevated at 18,100; trend BNP tomorrow; given 20 mg IV Lasix this morning. Check CXR tomorrow to help assess volume status given her significant obesity and unreliable historian. May need to give additional IV Lasix
tomorrow.
Original Note:
Today's Communication / Plan
-
Avoid BiPAP given worsening multifocal pneumonia with etiology presumed to be aspiration; only use BiPAP as needed
Trend blood gas to assure pH + pCO2 remain stable
Continue supplemental O2, maintaining SpO2 >90-94%
Continue aspiration precautions
Given concern for aspiration w/ possible esophageal dysphagia, check esophagram to evaluate for dysphagia --> per RN, pt would need to stand for 15 mins to do this; if able to be done and abnormal, c/s GI for reevaluation
Continue Advair + prn DuoNebs
Continue antibiotics, completing 10-14 days assuming she continues to clinically improve and remains afebrile for 48 hours prior to stopping antibiotics
Recommend outpatient pulmonary office follow-up to discuss sleep disordered breathing
Pulmonary service will continue to follow
Assessment
-
69-year-old non-smoking female with Down syndrome who reportedly had a choking episode on a hot dog yesterday but no obvious aspiration of the hot dog but possible aspiration of oral contents presented with obtundation requiring intubation
mechanical ventilation-muffle worker consulted for ventilator/aspiration pneumonia/sepsis/critical care management 09/18/2024; pt now transferred out of ICU as of 09/21 and pulmonary service is continuing to follow along.
Ventilator dependent respiratory failure secondary to aspiration pneumonia and hypoxemic/hypercapnic respiratory failure
Intubated 09/17/24
Extubated 09/19/24 (self extubated)
Septic shock due to multifocal pneumonia due to suspected aspiration (shock state resolved)
Dysphagia with suspected esophageal stricture
Leukocytosis
Metabolic acidosis - resolved
DM type II c/b hyperglycemia
Lactic acidosis - resolved
Elevated total bilirubin - resolved
Pulmonary hypertension with RV hypokinesis (PASP: 46 mmHg per echo on 09/19/2024)
Conditions present prior to admission:
Down syndrome.
Dysphagia.
Obesity-BMI 41
AMBER suspected.
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
Plan/recommendations
Patient has markedly improved, although on AM of 09/22 she was extremely agitated, tachypneic, and CXR showed a worsening right upper lobe pneumonia + worsening left-sided pneumonia
She possibly developed this while she was very agitated, possibly aspirated while on BiPAP
Given her aspiration risk, would stop routine BiPAP use, and only use as needed given the increased aspiration risk
Interestingly, per the family, she has had no swallowing issues prior to this admission hence unlikely has an underlying esophageal issue. GI had seen the patient on 09/21, and recommended a barium esophagram if concerning for esophageal dysphagia
persists
Now that patient is extubated, would obtain esophagram to further evaluate for dysphagia - per RN, patient unable to obtain this study as she will need to stand upright for least 15 minutes
Continue to trend serial blood gas to assure pH + pCO2 remained stable
CAN REPAIRER evaluated her on 09/22, and cleared her for IDDSI level 5 diet with thin liquids
Continue with aspiration precautions, keeping HOB >30-45�
On CTA chest from 09/17/2024, she had multifocal opacities involving the right upper lobe, lingula + left lower lobe with small amounts of tree-in-bud nodular opacities/infiltrates in the right lower lobe - suspect aspiration
She does have a good cough, however becomes easily agitated + anxious with care
Of note, she was a difficult intubation and required a #6 ETT
Continue with antibiotics, currently on Zosyn - would complete a 10-14 day course given she was on vasopressors with septic shock
Blood cultures collected on 09/17 show NGTD
Urinations for Legionella + strep pneumonia both negative
Collect sputum culture if patient can produce a decent sample, although may be a moot point considering patient's been on antibiotics since 09/17, and remains afebrile
She is on Wixela as an outpatient, and we will continue with Advair HFA 115mcg 2 puffs BID while hospitalized
Continue prn DuoNebs
As of 09/23, she has a dry sounding cough
Monitor agitation
Try to avoid benzodiazepines as this would help agitation in the short-term but has high risk of acute respiratory depression and causing rebound agitation
Psychiatry on board and recs appreciated
Continue with prn Risperdal, however if patient not cooperating then would administer Zyprexa IM but would need to monitor (QTc 519 ms - per EKG on 09/23)
Earlier in hospitalization she had elevated pCO2 at 50, however she was lethargic at this time hence unclear if she has chronic hypercapnia
Given her obesity, she is at elevated risk of obesity hypoventilation syndrome + AMBER
Can discuss sleep disordered breathing as an outpatient, although unclear if it is safe to start chronic PAP therapy considering multifocal pneumonia during current hospitalization which is thought to be from aspiration
Maintain MAP>65
While in the ICU, intermittent bradycardia noted, more pronounced with sleep
Cardiology correspondence reviewed � there was no evidence of heart block, and no indication for pacemaker; cardiology has since signed off on 09/21
Maintain euglycemia with goal BG >100 and <180 mg/dL
Continue basal�bolus SQ insulin dosing to maintain BG goal as above
Diabetic WHITE LEAD FILTERER following
DVT prophylaxis: LMWH
GI prophylaxis: On Protonix (home medication)
PT saw the patient on 09/21 and no skilled PT was recommended at that time
Pulmonary service will continue to follow along.
Diagnostic data:
Chest x-ray 09/17/2024-bilateral pneumonia left greater than right
CT chest 09/17/2024-no evidence for central or segmental pulmonary emboli, bilateral perihilar consolidations consistent with multifocal pneumonia and 9 mm nodule opacification superior left upper lobe may be infectious in nature though follow-up
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
discrete mass cannot be excluded
Total time spent today was 38 minutes for this encounter. Time includes reviewing laboratory test/imaging results, reviewing pertinent medical records, obtaining and reviewing medical history, performing an appropriate exam, ordering medications,
tests and procedures. Time also includes documentation of this encounter, coordinating patient care and communicating with other healthcare professionals. Total time does not include separately billed tests performed on this date of service.
Subjective Data
-
Date of Service:
Date of Service: September 23, 2024
Chief Complaint: Pulmonary Follow Up
Subjective:
Patient seen and evaluated this morning. Currently on 7 L/min nasal cannula. Afebrile overnight. Placed onto BiPAP overnight at around 4:30 AM per request of nursing supervisor varnish. 1: 1 present in the room as patient was restrained. proBNP checked
today and is markedly elevated at 18,100, increased from 1290 on 09/17/2024. She mainly wants to go home. Is also coughing at times specially when she takes a deep breath.
Review of Systems
General: Other (Unable to obtain given patient's clinical status (Down syndrome))
Objective Data
Data Reviewed
Vital Signs / I&O / Oxygen:
Vital Signs
Temp Pulse Resp BP Pulse Ox
98.8 F 88 20 154/76 93
09/23/24 03:55 09/23/24 08:26 09/23/24 08:26 09/23/24 06:02 09/23/24 08:26
Intake and Output
09/22/24 09/23/24 09/24/24
06:59 06:59 06:59
Intake Total 1100 / 1100 660 / 660
Output Total 1000 / 1000
Balance 1100 / 1100 -340 / -340
SaO2 [A/C] 98
SaO2 93
Nasal Cannula flow liters per 8
minute
Physical Exam
General: Respiratory Distress (negative), Comfortable, Chills (negative) and Sweats (negative)
HEENT: Normocephalic, Anicteric and Other (Thick neck)
Cardiovascular: S1-S2, Rub (negative) and Peripheral Edema (+1 bilateral lower extremity pitting edema)
Respiratory: Wheeze (negative), Crackles (Bilateral posterior lung rich, and right anterior chest field), Rhonchi (negative), Non-Labored Respirations and Stridor (negative)
GI: Soft, Distended (Abdominal obesity), Non Tender and Normal Bowel Sounds
Neurology: Awake, Alert, Tremors (negative) and Other (Confused at times)
Skin: Warm, Dry, Bruising (Upper extremities/forearms) and Other (Morbidly obese female, in NAD)
Labs/Micro/Reports
Lab Data
09/23/24 04:58
09/23/24 04:58
Microbiology
09/17/24 17:24 Blood/Venous Blood Culture - Final
No Growth - Final Report
09/17/24 17:22 Blood/Venous Blood Culture - Final
No Growth - Final Report
--- NOTE | 2024-09-23 10:48 | CM ---
Reviewed the chart notes and spoke with the patient at the bedside. Patient now with 1:1. Patient will need to be off 1:1 for 24 hrs for facility to accept back. CM continues to be available to patient/family and is monitoring medical plan for
needs at discharge.
Plan: Discharge back to [facility] when medically stable. No auth required due to patient being a senior living resident.
[2024-09-23] MEDS: REMOVE LIDOCAINE PATCH 1 PATCH REMOVE (12:21)
[2024-09-23] MEDS: NOVOLOG FLEXPEN-LOW RESISTANCE 1 UNITS SC ×2 (12:23→17:19)
[2024-09-23 12:24] LABS: Glucose - Point of Care 165 mg/dl (70-99)
--- NOTE | 2024-09-23 16:18 | W.PN.UPDATE ---
Update Note
Progress Note Update
patient seen chart reviewed discussed with nursing. the patient had a difficult night she received three different prns for agitation including zyprexa and valium as well as risperdal in the wee hours of the night. she is doing reasonably well at
this moment with a one to one in place. she is a little bit irritable. she did tell me she had pain in her arms which i communicated to ns. she does have extensive bruising from iv and restraints presumably. have ordered risperdal o.5 mg q hs as
a standing order. would try not to mix antipsychotics and benzos. psych will see her tomorrow
[2024-09-23] MEDS: LOVENOX 40 MG SC (17:06)
[2024-09-23] MEDS: TYLENOL PO (17:06)
[2024-09-23 17:16] LABS: Glucose - Point of Care 152 mg/dl (70-99)
[2024-09-23 22:03] LABS: Glucose - Point of Care 149 mg/dl (70-99)
[2024-09-23] MEDS: LIDOCAINE 4% PATCH 1 PATCH TOPICAL (22:44)
[2024-09-23] MEDS: TYLENOL 650 MG PO (22:46)
[2024-09-23] MEDS: LIPITOR 10 MG PO (22:48)
[2024-09-24] VITALS (8 sets, daily range): BP systolic 115–149; BP diastolic 54–117; BMI 41.4
[2024-09-24] MEDS: SYNTHROID 125 MCG PO (05:33)
[2024-09-24] MEDS: ZOSYN 50 IV ×2 (05:33→11:41)
[2024-09-24] MEDS: ADVAIR HFA 115/21 MCG INHALER 2 PUFF INH ×2 (07:49→20:09)
--- NOTE | 2024-09-24 08:00 | W.PN.HOSP.TC ---
Today's Communication/Plan
-
IV antibiotics. ID consult. IV Lasix.
Assessment / Plan
Assessment / Plan
Physical exam:
General: Acute on chronically ill. Obese
HEENT: Normocephalic, Atraumatic and Moist Mucous Membranes
Respiratory: Bilateral crackles, no wheezes or rhonchi
Cardiac: Regular Rhythm and S1/S2
GI: Soft, Nontender and Nondistended
Musculoskeletal: No Clubbing, No Cyanosis. Bruises on both arms. Bilateral trace lower extremity edema
Neuro: Awake, Alert, disoriented, generalized weakness, no neurological deficits
Psych: Anxious, cognitive deficits present
A/P:
Acute hypoxic respiratory failure:
Appears to be multifactorial likely aspiration pneumonia, volume overload, other
Plan to do Doppler both lower and upper extremities
On antibiotics
Given IV Lasix yesterday. Will repeat IV Lasix today.
She has a Ortiz catheter in place-plan for removal tomorrow
At some point patient was intubated and self extubated.
On supplemental oxygen-she remains on 6 L of oxygen
Pulmonary repeated a chest x-ray today-seems pretty much similar to yesterday.
Pulmonary on board
Discussed with brother at bedside prior
Discussed with attending RN
PT OT eval
Aspiration pneumonia:
Continue IV antibiotics but will ask ID to comment on antibiotic therapy at this point.
Speech therapy following-on IDDSI level 5
GI evaluated the patient and felt there was no need for further GI intervention unless significant pathology on images. Will attempt to do esophagogram but unable to perform since she is not able to stand up for several minutes-will see if able to
do down the road.
NSVT:
No recurrence so far but continue cardiac monitoring
Keep potassium above 4 and magnesium above 2
Reviewed echocardiogram, normal EF.
QTc prolongation:
Avoid QTc prolonging medications
Cardiac monitoring
Reviewed serial twelve-lead EKG
Hypokalemia:
Replete and trend
Hypomagnesemia:
Replete and trend
Septic shock secondary to aspiration pneumonia
Resolved
Suspect change in mental status admission likely secondary to toxic metabolic encephalopathy
Does have baseline bipolar disease, depression. Per brother she also have cognitive impairment/intellectual disability
Psychiatry evaluated the patient-will defer to psychiatry in terms of antidepressants, antipsychotics, sleeping aids.
She is currently on one to one observation
Lactic acidosis
Resolved
Transient bradycardia
Resolved
Acute metabolic acidosis
Resolved
Diabetes mellitus
A1c 7
Diabetes BODY STYLIST on board
Continue insulin sliding scale
Restarted long-acting insulin since patient tolerating diet
Hold metformin
History of asthma
Does not appear to be an asthma exacerbation
Hyperlipidemia
Restarted statins
Hypothyroidism
Restarted thyroid replacement
Morbid obesity secondary to excess calories
Monitor
GERD
Continue oral PPI
DVT prophylaxis
Lovenox SQ
CODE STATUS
Full code
Total time spent on today's encounter was 52 minutes which included time spent in counseling the patient/family regarding diagnosis and treatment plan as listed above, goals of care, and symptom management. Case was discussed with nursing staff,
specialists, and care coordinators/case management. All labs and imaging personally reviewed by me. Remainder the time spent in detailed review of previous records, lab data, imaging, and other medical provider documentation.
Anticipated Discharge: > 48 hours
Subjective/Interval History
-
Date of Service: September 24, 2024
Patient feels short of breath and on supplemental oxygen. She is calm this morning. RN reports worsening disorientation and intense agitation at the evening time. Afebrile
Objective Data
-
Labs:
Laboratory Results
09/24/24
06:00
WBC Pending
Hgb Pending
Hct Pending
Plt Count Pending
Sodium Pending
Potassium Pending
Chloride Pending
Carbon Dioxide Pending
BUN Pending
Creatinine Pending
Glucose Pending
Calcium Pending
Vital Signs:
Vital Signs
Temp Pulse Resp BP Pulse Ox
97.7 F 86 18 149/117 95
09/24/24 05:56 09/24/24 05:56 09/24/24 05:56 09/24/24 05:56 09/24/24 05:56
I&O
09/23/24 09/24/24 09/25/24
06:59 06:59 06:59
Intake Total 660 / 660 990 / 990
Output Total 1000 / 1000 3500 / 3500
Balance -340 / -340 -2510 / -2510
[2024-09-24 08:22] LABS: Glucose - Point of Care 177 mg/dl (70-99)
[2024-09-24] MEDS: REMOVE LIDOCAINE PATCH 1 PATCH REMOVE (08:38)
[2024-09-24] MEDS: MIRALAX 17 GRAMS TUBE (08:39)
[2024-09-24] MEDS: PROTONIX 40 MG PO (08:39)
[2024-09-24] MEDS: NOVOLOG FLEXPEN-LOW RESISTANCE 1 UNITS SC ×2 (08:39→17:14)
[2024-09-24] MEDS: DESENEX/MITRAZOL/ZEASORB 1 APPLIC TOPICAL ×2 (08:39→20:31)
[2024-09-24] MEDS: NOVOLOG FLEXPEN 5 UNITS SC ×3 (08:39→17:15)
[2024-09-24] MEDS: LANTUS 0.15 UNITS SC (08:39)
[2024-09-24] MEDS: LASIX 40 MG IV (09:14)
[2024-09-24 09:59] LABS: Venous Blood Gas B.E. 8.3 mmol/L (-4 to +4); Venous Blood Gas O2 Sat % 80.2 %
[2024-09-24 10:01] LABS: Hematocrit 37.9 % (37.0-47.0); Hemoglobin 12.2 g/dL (12.0-16.0); Mean Corp Hgb Conc. 32.2 g/dL (33.0-37.0); Mean Corpuscular Volume 95.7 fL (81.0-99.0); Nucleated Red Blood Cells % 0 %; Platelet Count 214 10^3/uL (130-400); Red Cell Dist. Width 15.4 % (11.5-14.5)
--- NOTE | 2024-09-24 11:43 | CON.ID ---
Consultation
-
Date/Time Consultation Requested: September 24, 2024
Date/Time Consultation Performed: September 24, 2024
Requesting Provider: Dr. Alonso Elizondo
Performing Provider: Dr. Lucinda Greer
Reason for Consultation: Aspiration pneumonia
Chief Complaint / Past History
Chief Complaint
Choked on hot dog
History of Present Illness
History obtained from review medical records, from patient as well as from her [id number] at bedside. She is 69-year-old female with Down syndrome, diabetes mellitus, who presented to the hospital September 17 with respiratory failure after choking
on a hot dog. She was minimally responsive. She was intubated. She was hypotensive. White count 22.5. chest CT showed bilateral perihilar consolidations, mild narrowing of the right mainstem bronchus, fluid present within the esophagus. She
was started on Zosyn. Patient self extubated on September 19. She has intermittent agitation now improved on Risperdal. Patient recently transferred out of IMU. Today patient reports that she is feeling better. Shortness of breath has decreased. Dry
cough improving. Per [id number], patient does have history of choking on foods. She normally eat he states soft mechanical diet. Patient reports she did cut up the hot dog but a large piece got stuck on her esophagus. No other complaints
today.
Past History
Additional Past Medical History:
Diabetes mellitus type 2
Developmental delay/Down syndrome
Hypothyroidism
Dysphagia
Class III obesity BMI 41
Allergy History:
No Known Allergies Allergy (Unverified 09/17/24 16:51)
Medications Reviewed: Yes
Current Antibiotics:
Zosyn d8
Social History
Tobacco: Non-Smoker
Alcohol: None
Drug: None
Living: Group Home ([facility])
Family History
Family History: Not Pertinent
Review of Systems
Review of Systems
General: Negative Fever, Chills or Change in Appetite
HEENT: Negative Sinus Problems or Headache
Cardiovascular: Negative Chest Pain
Respiratory: Dyspnea and Cough; Negative Sputum Production
Gasteroenterology: Negative Vomiting or Diarrhea
Genital / Urological: Negative Dysuria or Flank Pain
Endocrine: Weakness
Neurological: Negative Dizziness
All systems: All other systems were reviewed and were negative
Vital Signs
Temp Pulse Resp BP Pulse Ox
98.0 F 68 16 115/54 91
09/24/24 11:27 09/24/24 11:27 09/24/24 11:27 09/24/24 11:27 09/24/24 11:27
Physical Exam
Physical Exam
Constitutional: No Acute Distress, Comfortable and Non-toxic
Head: Other (No frontal or max or sinus tenderness)
Eyes: No Conjunctival Hemorrhage and Sclera Anicteric
Cardiovascular: Regular Rate and S1/S2
Pulmonary: Coarse
Gastrointestinal: Soft, Non Tender, Non Distended and Normal Bowel Sounds
Genito-Urinary: Negative CVA Tenderness
Extremities: Edema
Neurological: AO x 3
Psychological: Calm
Lab / Diagnostic Study Results
09/24/24 09:54
Abs Immat Gran (auto) 0.1 10^3/uL (0-0.05) H 09/24/24 09:54
Absolute Neuts (auto) 6.9 10^3/uL (1.4-6.5) H 09/24/24 09:54
Absolute Lymphs (auto) 1.4 10^3/uL (1.2-3.4) 09/24/24 09:54
Absolute Monos (auto) 0.8 10^3/uL (0.1-0.6) H 09/24/24 09:54
Absolute Basos (auto) 0.0 10^3/uL (0-0.2) 09/24/24 09:54
Immature Gran % 0.7 % (0-0.5) H 09/24/24 09:54
Neutrophils % 72.8 % (42.2-75.2) 09/24/24 09:54
Lymphocytes % 14.6 % (20.5-51.1) L 09/24/24 09:54
Monocytes % 8.2 % (1.7-9.3) 09/24/24 09:54
Eosinophils % 3.4 % (0-6) 09/24/24 09:54
Basophils % 0.3 % (0-2) 09/24/24 09:54
PT 18.4 Sec (11.4-14.6) H 09/18/24 03:08
INR 1.51 09/18/24 03:08
Lactic Acid Cancelled 09/23/24 06:00
Ur Squamous Epith Cells >30 /LPF (Few) 09/17/24 21:06
Microbiology Results
Micro:
09/17/24 17:24 Blood Culture - Final
Blood/Venous No Growth - Final Report
09/17/24 17:22 Blood Culture - Final
Blood/Venous No Growth - Final Report
09/17/24 21:06 Urine Culture - Final
Urine No Significant Growth
09/18/24 16:24 Legionella Urinary Antigen - Final
Urine Negative for Legionella pneumophila Serogroup 1 antigen.
A negative result does not rule out the possiblity of
Legionella infection due to other serogroups or species of
Legionella. Clinical correlation is recommended.
Streptococcus pneumoniae Antigen (M - Final
Negative for Streptococcus pneumoniae antigen.
A negative result does not exclude infection with
Streptococcus pneumoniae. Clinical correlation is
recommended.
09/17/24 23:31 Nasal Screen MRSA (PCR) - Final
Nose MRSA not detected - performed by PCR methodology.
09/24/24 CXR: Bilateral parenchymal opacification, unchanged,
09/17/24 CT a/p: No evidence of central or segmental pulmonary embolism.
2. There are bilateral perihilar consolidations extending throughout the lungs with surrounding groundglass and nodular opacities consistent with multifocal pneumonia. Additionally there is a 9 mm nodular opacity in the superior left upper lobe
which may be infectious in nature however follow-up is recommended to ensure resolution.
3. 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 There is associated mild narrowing of the right mainstem bronchus. Fluid is present within the esophagus which may be secondary to extrinsic compression
although a discrete mass cannot be excluded.. When the patient can tolerate a fluoroscopic esophagram or endoscopy may be considered as clinically warranted.
Assessment / Plan
# Aspiration pneumonia
# s/p VDRF, self-extubated
# Leukocytosis resolved
- Decreasing oxygen requirement.
- Has completed 7d of abx.
-DC Zosyn (d8)
- Aspiration precaution
ID will sign pff.
[2024-09-24 12:27] LABS: Glucose - Point of Care 227 mg/dl (70-99)
[2024-09-24] MEDS: NOVOLOG FLEXPEN-LOW RESISTANCE 2 UNITS SC (12:40)
--- NOTE | 2024-09-24 14:05 | PTCARENOTE ---
pt with midline, no blood return. phleb tt this vat RN to draw peripheral labs d/t prop sawyer unable to draw labs peripherally. pt currently with ultrasound of upper and lower extremities. will have VAT RN return to attempt when pt available
--- NOTE | 2024-09-24 16:47 | W.PN.PUL3 ---
Today's Communication / Plan
-
Difficult situation as agitation precludes necessary testing
Also precludes aspiration precautions
Presently on 6 L, wean oxygen as able
Head of bed elevated
Encourage cough, airway clearance
Assessment
-
69-year-old non-smoking female with Down syndrome who reportedly had a choking episode on a hot dog yesterday but no obvious aspiration of the hot dog but possible aspiration of oral contents presented with obtundation requiring intubation
mechanical ventilation-engineering inspection assistant consulted for ventilator/aspiration pneumonia/sepsis/critical care management 09/18/2024; pt now transferred out of ICU as of 09/21 and pulmonary service is continuing to follow along.
Ventilator dependent respiratory failure secondary to aspiration pneumonia and hypoxemic/hypercapnic respiratory failure
Intubated 09/17/24
Extubated 09/19/24 (self extubated)
Septic shock due to multifocal pneumonia due to suspected aspiration (shock state resolved)
Dysphagia with suspected esophageal stricture
Leukocytosis
Metabolic acidosis - resolved
DM type II c/b hyperglycemia
Lactic acidosis - resolved
Elevated total bilirubin - resolved
Pulmonary hypertension with RV hypokinesis (PASP: 46 mmHg per echo on 09/19/2024)
Conditions present prior to admission:
Down syndrome.
Dysphagia.
Obesity-BMI 41
AMBER suspected.
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
Plan/recommendations
Appears to be comfortable, currently on room air
Doppler negative for clot
Chest x-ray with bilateral patchy infiltrate, improved aeration compared to 09/22
Unfortunately patient continues to be aspiration risk
Per Dr. Blount, BiPAP was discontinued given aspiration risk
96% on 6 L
Moving forward
Continue with aspiration precautions, head of bed elevated
Ongoing work for for esophageal issue
Possible esophagram
Unfortunately, patient agitation and difficulty cooperating with exam makes this difficult
EXCEL VBA DEVELOPER evaluated her on 09/22, and cleared her for IDDSI level 5 diet with thin liquids
Continue with aspiration precautions, keeping HOB >30-45�
On CTA chest from 09/17/2024, she had multifocal opacities involving the right upper lobe, lingula + left lower lobe with small amounts of tree-in-bud nodular opacities/infiltrates in the right lower lobe - suspect aspiration
She does have a good cough, however becomes easily agitated + anxious with care
Of note, she was a difficult intubation and required a #6 ETT
Continue with antibiotics, completed Zosyn -currently off antibiotics
Blood cultures collected on 09/17 show NGTD
Urinations for Legionella + strep pneumonia both negative
Collect sputum culture if patient can produce a decent sample, although may be a moot point considering patient's been on antibiotics since 09/17, and remains afebrile
She is on Wixela as an outpatient, and we will continue with Advair HFA 115mcg 2 puffs BID while hospitalized
Continue prn DuoNebs
As of 09/23, she has a dry sounding cough
Monitor agitation
Try to avoid benzodiazepines as this would help agitation in the short-term but has high risk of acute respiratory depression and causing rebound agitation
Psychiatry on board and recs appreciated
Continue with prn Risperdal, however if patient not cooperating then would administer Zyprexa IM but would need to monitor (QTc 519 ms - per EKG on 09/23)
Earlier in hospitalization she had elevated pCO2 at 50, however she was lethargic at this time hence unclear if she has chronic hypercapnia
Given her obesity, she is at elevated risk of obesity hypoventilation syndrome + AMBER
Can discuss sleep disordered breathing as an outpatient, although unclear if it is safe to start chronic PAP therapy considering multifocal pneumonia during current hospitalization which is thought to be from aspiration
DVT prophylaxis: LMWH
GI prophylaxis: On Protonix (home medication)
PT saw the patient on 09/21 and no skilled PT was recommended at that time
Disposition efforts
Diagnostic data:
Chest x-ray 09/17/2024-bilateral pneumonia left greater than right
CT chest 09/17/2024-no evidence for central or segmental pulmonary emboli, bilateral perihilar consolidations consistent with multifocal pneumonia and 9 mm nodule opacification superior left upper lobe may be infectious in nature though follow-up
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
discrete mass cannot be excluded
Total time spent today was 38 minutes for this encounter. Time includes reviewing laboratory test/imaging results, reviewing pertinent medical records, obtaining and reviewing medical history, performing an appropriate exam, ordering medications,
tests and procedures. Time also includes documentation of this encounter, coordinating patient care and communicating with other healthcare professionals. Total time does not include separately billed tests performed on this date of service.
Subjective Data
-
Date of Service:
Date of Service: September 24, 2024
Chief Complaint: Pulmonary Follow Up
Subjective:
Patient examined earlier this morning. Unfortunately requiring one-to-one due to intermittent agitation. Presently sleeping comfortably, head of bed elevated
Objective Data
Data Reviewed
Vital Signs / I&O / Oxygen:
Vital Signs
Temp Pulse Resp BP Pulse Ox
97.8 F 80 20 117/60 96
09/24/24 15:36 09/24/24 15:36 09/24/24 15:36 09/24/24 15:36 09/24/24 15:36
Intake and Output
09/23/24 09/24/24 09/25/24
06:59 06:59 06:59
Intake Total 660 / 660 990 / 990
Output Total 1000 / 1000 3500 / 3500
Balance -340 / -340 -2510 / -2510
SaO2 [A/C] 98
SaO2 96
Nasal Cannula flow liters per 6
minute
Physical Exam
General: Comfortable
HEENT: Normocephalic and Other (Thick neck)
Cardiovascular: S1-S2, Regular Rhythm, Murmur (n), Rub (negative) and Peripheral Edema (+1 bilateral lower extremity pitting edema)
Respiratory: Wheeze (negative), Crackles (n), Rhonchi (negative), Non-Labored Respirations and Stridor (negative)
GI: Soft, Distended (Abdominal obesity) and Non Tender
Neurology: Lethargic (Sleeping comfortably. Was agitated prior according to one-to-one)
Skin: Warm, Dry, Bruising (Upper extremities/forearms) and Other (Morbidly obese female, in NAD)
Labs/Micro/Reports
Lab Data
09/24/24 09:54
Microbiology
09/17/24 17:24 Blood/Venous Blood Culture - Final
No Growth - Final Report
09/17/24 17:22 Blood/Venous Blood Culture - Final
No Growth - Final Report
[2024-09-24 16:55] LABS: Glucose - Point of Care 151 mg/dl (70-99)
[2024-09-24] MEDS: LOVENOX 40 MG SC (17:14)
[2024-09-24] MEDS: RISPERDAL M-TAB (ORALLY DISINTEGRATING) 0.5 MG PO (21:14)
[2024-09-24] MEDS: LIDOCAINE 4% PATCH 1 PATCH TOPICAL (21:14)
[2024-09-24] MEDS: LIPITOR 10 MG PO (21:14)
[2024-09-24 21:31] LABS: Glucose - Point of Care 186 mg/dl (70-99)
[2024-09-25 02:46] VITALS: BP 154/85
[2024-09-25] MEDS: RISPERDAL M-TAB (ORALLY DISINTEGRATING) 0.5 MG PO ×2 (03:21→21:30)
[2024-09-25] MEDS: SYNTHROID 125 MCG PO (03:21)
[2024-09-25 03:59] VITALS: BMI 39.4
--- NOTE | 2024-09-25 06:28 | PTCARENOTE ---
Patient agitated throughout night and not able to be redirected. Patient frequently pulling off oxygen and telemonitor - requiring assist of 2 people to to apply oxygen/tele monitor back on patient. PRN Risperdal given w/ no effect. SPRING TESTER notified.
Mitts ordered and placed on patient - see worklist. 1:1 maintained for patient safety.
[2024-09-25 06:49] LABS: Hematocrit 36.4 % (37.0-47.0); Hemoglobin 11.9 g/dL (12.0-16.0); Mean Corp Hgb Conc. 32.7 g/dL (33.0-37.0); Mean Corpuscular Volume 95.0 fL (81.0-99.0); Nucleated Red Blood Cells % 0 %; Platelet Count 232 10^3/uL (130-400); Red Cell Dist. Width 15.4 % (11.5-14.5)
[2024-09-25 07:11] LABS: Blood Urea Nitrogen 10 mg/dl (7-17); Calcium 8.0 mg/dl (8.4-10.2); Carbon Dioxide 28 mmol/L (22-30); Chloride 105 mmol/L (98-107); Estimated Creatinine Clearance 98 ml/min; Glucose 196 mg/dl (70-99); Magnesium 1.8 mg/dl (1.6-2.3); Potassium 3.3 mmol/L (3.5-5.1); Sodium 141 mmol/L (135-145); eGFR > 60.00
[2024-09-25] MEDS: ADVAIR HFA 115/21 MCG INHALER 2 PUFF INH ×2 (07:20→20:58)
[2024-09-25 07:23] LABS: Glucose - Point of Care 197 mg/dl (70-99)
[2024-09-25 07:24] VITALS: BP 145/71
[2024-09-25] MEDS: PROTONIX 40 MG PO (08:30)
[2024-09-25] MEDS: MAGNESIUM SULFATE 50 IV (08:30)
[2024-09-25] MEDS: LANTUS 0.15 UNITS SC (08:30)
[2024-09-25] MEDS: MIRALAX TUBE (08:30)
[2024-09-25] MEDS: NOVOLOG FLEXPEN-LOW RESISTANCE 1 UNITS SC (08:31)
[2024-09-25] MEDS: KCL 40 MEQ PO ×2 (08:31→12:57)
[2024-09-25] MEDS: NOVOLOG FLEXPEN 5 UNITS SC ×3 (08:31→17:08)
[2024-09-25] MEDS: DESENEX/MITRAZOL/ZEASORB 1 APPLIC TOPICAL ×2 (08:32→19:45)
[2024-09-25] MEDS: REMOVE LIDOCAINE PATCH 1 PATCH REMOVE (08:49)
--- NOTE | 2024-09-25 09:14 | PTCARENOTE ---
PO potassium given as well as IV mag through patients R midline this afternoon due to morning lab results. Mccrary catheter order adjusted to be taken on 09/26 due to high volume output through mccrary. pt remains in mits at this time but is being
cooperative and calm with 1:1 at bedside. pt weaned from 6L to 4L this morning with respiratory. made aware
[2024-09-25 11:10] VITALS: BP 139/86
--- NOTE | 2024-09-25 11:51 | W.PN.HOSP.TC ---
Addendum entered and electronically signed by Alonso Elizondo MD 09/25/24 18:28:
DVT in IJ and superficial thrombosis-->Start full dose Lovenox. If stable will switch to Eliquis over the next 24 hrs and d/c picc line.
Original Note:
Today's Communication/Plan
-
See plan
Assessment / Plan
Assessment / Plan
Physical exam:
General: Acute on chronically ill. Obese
HEENT: Normocephalic, Atraumatic and Moist Mucous Membranes
Respiratory: Bilateral crackles, no wheezes or rhonchi
Cardiac: Regular Rhythm and S1/S2
GI: Soft, Nontender and Nondistended
Musculoskeletal: No Clubbing, No Cyanosis. Bruises on both arms. Bilateral trace lower extremity edema
Neuro: Awake, Alert, disoriented, generalized weakness, no neurological deficits
Psych: Anxious, cognitive deficits present
A/P:
Acute hypoxic respiratory failure:
Appears to be multifactorial likely aspiration pneumonia, volume overload, other
Plan to do Doppler both upper extremities
Lower extremity Dopplers negative for DVT
She has a Ortiz catheter in place-plan for removal tomorrow
At some point patient was intubated and self extubated.
On supplemental oxygen-she is down to 4 L of oxygen today
Will repeat chest x-ray in a.m.
Pulmonary on board
Discussed with brother at bedside prior
Discussed with attending RN
PT OT eval
Aspiration pneumonia:
Finish course of antibiotics per ID
ID consult appreciated
Speech therapy following-on IDDSI level 5
GI evaluated the patient and felt there was no need for further GI intervention unless significant pathology on images. Will attempt to do esophagogram but unable to perform since she is not able to stand up for several minutes-will see if able to
do down the road.
Acute on chronic diastolic CHF:
Given IV Lasix for 2 days in a row
Oxygenation down to 4 L from 6
Urine output more than 2 L and hypokalemia and hypomagnesemia so we will hold off on further diuresis today
NSVT:
No recurrence so far but continue cardiac monitoring
Keep potassium above 4 and magnesium above 2--> give oral potassium 80 mg total today and 2 g of magnesium sulfate IV. Repeat electrolytes in a.m. or sooner if recurrence of arrhythmias.
Reviewed echocardiogram, normal EF.
QTc prolongation:
Avoid QTc prolonging medications
Cardiac monitoring
Reviewed serial twelve-lead EKG
Hypokalemia:
Replete and trend
Hypomagnesemia:
Replete and trend
Septic shock secondary to aspiration pneumonia
Resolved
Suspect change in mental status admission likely secondary to toxic metabolic encephalopathy
Does have baseline bipolar disease, depression. Per brother she also have cognitive impairment/intellectual disability
Psychiatry evaluated the patient-will defer to psychiatry in terms of antidepressants, antipsychotics, sleeping aids.
She is currently on one to one observation
She was placed on restraints again overnight but this morning we discontinued and she is doing well. Will reevaluate
Lactic acidosis
Resolved
Transient bradycardia
Resolved
Acute metabolic acidosis
Resolved
Diabetes mellitus
A1c 7
Diabetes SETTLEMENT CLERK on board
Continue insulin sliding scale
Restarted long-acting insulin since patient tolerating diet
Hold metformin
History of asthma
Does not appear to be an asthma exacerbation
Hyperlipidemia
Restarted statins
Hypothyroidism
Restarted thyroid replacement
Morbid obesity secondary to excess calories
Monitor
GERD
Continue oral PPI
DVT prophylaxis
Lovenox SQ
CODE STATUS
Full code
Total time spent on today's encounter was 52 minutes which included time spent in counseling the patient/family regarding diagnosis and treatment plan as listed above, goals of care, and symptom management. Case was discussed with nursing staff,
specialists, and care coordinators/case management. All labs and imaging personally reviewed by me. Remainder the time spent in detailed review of previous records, lab data, imaging, and other medical provider documentation.
Anticipated Discharge: 24 - 48 hours
Subjective/Interval History
-
Date of Service: September 25, 2024
Patient remains on supplemental oxygen but less today. Good urine output. She was agitated apparently overnight but she is very calm this morning and cooperative. Afebrile
Objective Data
-
Labs:
Laboratory Results
09/24/24 09/25/24
21:00 06:30
WBC 9.3
Hgb 11.9 L
Hct 36.4 L
Plt Count 232
Sodium Cancelled 141
Potassium Cancelled 3.3 L
Chloride Cancelled 105
Carbon Dioxide Cancelled 28
BUN Cancelled 10
Creatinine Cancelled 0.6
Glucose Cancelled 196 H
Calcium Cancelled 8.0 L
Vital Signs:
Vital Signs
Temp Pulse Resp BP Pulse Ox
98.2 F 76 18 139/86 93
09/25/24 11:10 09/25/24 11:10 09/25/24 11:10 09/25/24 11:10 09/25/24 11:10
I&O
09/24/24 09/25/24 09/26/24
06:59 06:59 06:59
Intake Total 990 / 990 1280 / 1280
Output Total 3500 / 3500 5350 / 5350
Balance -2510 / -2510 -4070 / -4070
[2024-09-25 12:20] LABS: Glucose - Point of Care 219 mg/dl (70-99)
[2024-09-25] MEDS: NOVOLOG FLEXPEN-LOW RESISTANCE 2 UNITS SC ×2 (12:57→17:08)
--- NOTE | 2024-09-25 14:47 | W.PN.PUL3 ---
Today's Communication / Plan
-
Suspect chronic intermittent aspiration
Continue aspiration precautions
Chest x-ray in AM. Prior chest x-ray is improving
Continue with efforts to wean oxygen
Assessment
-
69-year-old non-smoking female with Down syndrome who reportedly had a choking episode on a hot dog yesterday but no obvious aspiration of the hot dog but possible aspiration of oral contents presented with obtundation requiring intubation
mechanical ventilation-check services clerk consulted for ventilator/aspiration pneumonia/sepsis/critical care management 09/18/2024; pt now transferred out of ICU as of 09/21 and pulmonary service is continuing to follow along.
Ventilator dependent respiratory failure secondary to aspiration pneumonia and hypoxemic/hypercapnic respiratory failure
Intubated 09/17/24
Extubated 09/19/24 (self extubated)
Septic shock due to multifocal pneumonia due to suspected aspiration (shock state resolved)
Dysphagia with suspected esophageal stricture
Leukocytosis
Metabolic acidosis - resolved
DM type II c/b hyperglycemia
Lactic acidosis - resolved
Elevated total bilirubin - resolved
Pulmonary hypertension with RV hypokinesis (PASP: 46 mmHg per echo on 09/19/2024)
Conditions present prior to admission:
Down syndrome.
Dysphagia.
Obesity-BMI 41
AMBER suspected.
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
Plan/recommendations
Appears to be comfortable, 94% on 4 L, decreased from 6 L this morning
Doppler negative for clot, upper extremity Doppler pending
Chest x-ray with bilateral patchy infiltrate, improved aeration compared to 09/22
Unfortunately patient continues to be aspiration risk
Per Dr. Blount, BiPAP was discontinued given aspiration risk
Moving forward
Continue with aspiration precautions, head of bed elevated
Ongoing work for for esophageal issue
Possible esophagram
Unfortunately, patient agitation and difficulty cooperating with exam makes this difficult
APPLIANCE SERVICE REPRESENTATIVE evaluated her on 09/22, and cleared her for IDDSI level 5 diet with thin liquids
Continue with aspiration precautions, keeping HOB >30-45�
Ambulate, out of bed to chair
On CTA chest from 09/17/2024, she had multifocal opacities involving the right upper lobe, lingula + left lower lobe with small amounts of tree-in-bud nodular opacities/infiltrates in the right lower lobe - suspect aspiration
She does have a good cough, however becomes easily agitated + anxious with care
Of note, she was a difficult intubation and required a #6 ETT
Continue with antibiotics, completed Zosyn -currently off antibiotics
Blood cultures collected on 09/17 show NGTD
Urinations for Legionella + strep pneumonia both negative
Collect sputum culture if patient can produce a decent sample, although may be a moot point considering patient's been on antibiotics since 09/17, and remains afebrile
She is on Wixela as an outpatient, and we will continue with Advair HFA 115mcg 2 puffs BID while hospitalized
Continue prn DuoNebs
As of 09/23, she has a dry sounding cough
Monitor agitation
Try to avoid benzodiazepines as this would help agitation in the short-term but has high risk of acute respiratory depression and causing rebound agitation
Psychiatry on board and recs appreciated
Continue with prn Risperdal, however if patient not cooperating then would administer Zyprexa IM but would need to monitor (QTc 519 ms - per EKG on 09/23)
Earlier in hospitalization she had elevated pCO2 at 50, however she was lethargic at this time hence unclear if she has chronic hypercapnia
Given her obesity, she is at elevated risk of obesity hypoventilation syndrome + AMBER
Can discuss sleep disordered breathing as an outpatient, although unclear if it is safe to start chronic PAP therapy considering multifocal pneumonia during current hospitalization which is thought to be from aspiration
DVT prophylaxis: LMWH
GI prophylaxis: On Protonix (home medication)
PT saw the patient on 09/21 and no skilled PT was recommended at that time
Disposition efforts
Diagnostic data:
Chest x-ray 09/17/2024-bilateral pneumonia left greater than right
CT chest 09/17/2024-no evidence for central or segmental pulmonary emboli, bilateral perihilar consolidations consistent with multifocal pneumonia and 9 mm nodule opacification superior left upper lobe may be infectious in nature though follow-up
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
discrete mass cannot be excluded
Total time spent today was 38 minutes for this encounter. Time includes reviewing laboratory test/imaging results, reviewing pertinent medical records, obtaining and reviewing medical history, performing an appropriate exam, ordering medications,
tests and procedures. Time also includes documentation of this encounter, coordinating patient care and communicating with other healthcare professionals. Total time does not include separately billed tests performed on this date of service.
Subjective Data
-
Date of Service:
Date of Service: September 25, 2024
Chief Complaint: Pulmonary Follow Up
Subjective:
Patient examined earlier this morning. Was the most awake have seen her in a while, conversant with one-to-one aide. Patient answering questions appropriately. Patient with good cough
Objective Data
Data Reviewed
Vital Signs / I&O / Oxygen:
Vital Signs
Temp Pulse Resp BP Pulse Ox
98.2 F 76 18 139/86 93
09/25/24 11:10 09/25/24 11:10 09/25/24 11:10 09/25/24 11:10 09/25/24 11:10
Intake and Output
09/24/24 09/25/24 09/26/24
06:59 06:59 06:59
Intake Total 990 / 990 1280 / 1280
Output Total 3500 / 3500 5350 / 5350
Balance -2510 / -2510 -4070 / -4070
SaO2 [A/C] 98
SaO2 93
Nasal Cannula flow liters per 4
minute
Physical Exam
General: Comfortable
HEENT: Normocephalic and Other (Thick neck)
Cardiovascular: S1-S2, Regular Rhythm, Murmur (n), Rub (negative) and Peripheral Edema (+1 bilateral lower extremity pitting edema)
Respiratory: Wheeze (negative), Crackles (n), Rhonchi (few), Non-Labored Respirations and Stridor (negative)
GI: Soft, Distended (Abdominal obesity) and Non Tender
Neurology: Awake and Alert (Conversant, answers questions)
Skin: Warm, Dry, Bruising (Upper extremities/forearms) and Other (Morbidly obese female, in NAD)
Labs/Micro/Reports
Lab Data
09/25/24 06:30
09/25/24 06:30
Microbiology
09/17/24 17:24 Blood/Venous Blood Culture - Final
No Growth - Final Report
09/17/24 17:22 Blood/Venous Blood Culture - Final
No Growth - Final Report
[2024-09-25 15:23] VITALS: BP 134/67
--- NOTE | 2024-09-25 15:35 | W.PN.UPDATE ---
Update Note
Progress Note Update
Pt seen, chart reviewed. Pt alert, calm, cooperative, able to answer some questions, is a limited historian. Pt noted up all night last night, agitated. Risperidone 0.5 mg prn noted not to have any benefit. Pt was pulling at midline, was in
mitts, hands out now. Pt pleasant this afternoon. QTc 519 on 09/23/24, consistently in that range. Home meds- Prozac, Trazodone, Buspar, Abilify- have not been given here. Prozac noted prescribed for hair pulling and skin picking d/o. Pt able
to confirm she is on Trazodone for sleep at home.
Imp: TME, with intermittent agitation; Intellectual/learning disability
Hx of hair pulling and skin picking d/o
Rec: Resume existing home medications Prozac 40 mg daily, Trazodone 50 mg HS. Continue Risperidone 0.5 mg HS. Consider resuming Buspar
Will follow
[2024-09-25 16:49] LABS: Glucose - Point of Care 248 mg/dl (70-99)
[2024-09-25] MEDS: LOVENOX 100 MG SC (18:03)
[2024-09-25 18:50] VITALS: BP 127/57
[2024-09-25 21:25] LABS: Glucose - Point of Care 201 mg/dl (70-99)
[2024-09-25] MEDS: TYLENOL 650 MG PO (21:26)
[2024-09-25 21:27] VITALS: BP 161/64
[2024-09-25] MEDS: DESYREL 50 MG PO (21:27)
[2024-09-25] MEDS: LIDOCAINE 4% PATCH 1 PATCH TOPICAL (21:29)
[2024-09-25] MEDS: LIPITOR 10 MG PO (21:30)
[2024-09-26] VITALS (8 sets, daily range): BP systolic 130–171; BP diastolic 45–104; BMI 38.8
[2024-09-26] MEDS: RISPERDAL M-TAB (ORALLY DISINTEGRATING) 0.5 MG PO ×3 (00:53→21:23)
--- NOTE | 2024-09-26 01:43 | PTCARENOTE ---
Patient restless/agitated pulling off oxygen/telemonitor and pulling at midline/mccrary. Patient unable to be redirected w/ worsening confusion - patient unable to even state own name at times. Requiring multiple staff members to reapply
oxygen/telemonitor and attempt to redirect. PRN Risperdal given w/ little effect. CARDIOPULMONARY TECHNICIAN notified. Mitts ordered and placed on patient - see worklist. 1:1 maintained for patient safety.
[2024-09-26] MEDS: SYNTHROID 125 MCG PO (03:53)
[2024-09-26] MEDS: LOVENOX 100 MG SC (05:54)
--- NOTE | 2024-09-26 06:23 | PTCARENOTE ---
Patient calm and cooperative w/ staff this AM. Restraints removed.
--- NOTE | 2024-09-26 07:46 | PN.DE.MGMTRT ---
Insulin Management
- -
09/26/2024: Diabetes Management Follow up
Patient admitted 09/17 with acute respiratory distress. PMH: Down syndrome who reportedly had a choking episode on a hot dog with possible aspiration of oral contents. 09/17 in the ED patient was unresponsive requiring intubation- mechanical
ventilation due to Acute hypoxic hypercapnic respiratory failure 2/2 aspiration pneumonia/sepsis. Prior to admission, was taking Lantus 30 units daily, Lispro 12 units AC and Metformin 1000mg BID. A1C 7%, Cr 0.7, eGFR >60.
Patient is awake, alert, oriented, sitting up in bed, able to discuss diabetes care plan, has limited insight as to her diabetes care.
Steroids stopped on 09/21, started on puree diet 09/22, appetite has improved, eating 100% of her meals. Currently NPO for Esophagram
09/25 premeal range 197 to 248, requiring additional corrective insulin. HS glucose was 201, fasting V, 226 POC this AM.
Will increase Lantus to 20 units and AC NovoLog to 8 units (was taking Lantus 30 units and Lispro 12 units TID).
Discussed with Nurse to HOLD AM NovoLog dose since pt is NPO for procedure.
Will cont to monitor and adjust insulin dose if necessary.
Diabetes History
- -
Type of Diabetes: 2 requiring insulin
Pre-Admission Diabetes Regimen
Lab Results
Hemoglobin A1c 7.0 % (4.0-5.6) H 09/18/24 12:18
Insulin Pump Settings
IP Diabetes Regimen
09/25/24 09/25/24 09/25/24
12:18 16:47 21:24
POC Glucose 219 H 248 H 201 H
Meal type: Dinner
Meal type: Lunch
Amount consumed: 100%
Amount consumed: 100%
Patient Education
[2024-09-26 07:59] LABS: Hematocrit 34.7 % (37.0-47.0); Hemoglobin 11.2 g/dL (12.0-16.0); Mean Corp Hgb Conc. 32.3 g/dL (33.0-37.0); Mean Corpuscular Volume 95.6 fL (81.0-99.0); Nucleated Red Blood Cells % 0 %; Platelet Count 235 10^3/uL (130-400); Red Cell Dist. Width 15.4 % (11.5-14.5)
[2024-09-26] MEDS: ADVAIR HFA 115/21 MCG INHALER 2 PUFF INH ×2 (08:13→20:48)
--- NOTE | 2024-09-26 08:17 | W.PN.HOSP.TC ---
Addendum entered and electronically signed by Alonso Elizondo MD 09/26/24 13:56:
Esophagogram normal. Discussed with brother at bedside. Will repeat u/a and get ct head.
Original Note:
Today's Communication/Plan
-
IV Lasix. Esophagogram. Eliquis
Assessment / Plan
Assessment / Plan
Physical exam:
General: Acute on chronically ill. Obese
HEENT: Normocephalic, Atraumatic and Moist Mucous Membranes
Respiratory: Bilateral crackles, no wheezes or rhonchi
Cardiac: Regular Rhythm and S1/S2
GI: Soft, Nontender and Nondistended
Musculoskeletal: No Clubbing, No Cyanosis. Bruises on both arms. Bilateral trace lower extremity edema
Neuro: Awake, Alert, oriented, generalized weakness, no neurological deficits
Psych: Calm, cognitive deficits present
A/P:
Acute hypoxic respiratory failure:
Appears to be multifactorial likely aspiration pneumonia, volume overload, suspected ?OHS/AMBER, obesity, other
Lower extremity Dopplers negative for DVT
She has a Ortiz catheter in place-plan for removal tomorrow
At some point patient was intubated and self extubated.
On supplemental oxygen
Repeated chest x-ray today-shows improvement
Pulmonary on board
Discussed with brother at bedside prior
Discussed with attending RN
PT OT eval
Acute diastolic CHF:
IV Lasix 40 mg today
Chest x-ray today shows significant improvement over the last 48 hours correlating with some degree of volume overload.
BNP trending down
Oxygenation fluctuating 4 to 6 L
Keep Ortiz for today and discontinue in a.m.
Right IJ DVT/ Superficial thrombosis:
Full dose Lovenox switched to Eliquis today--> 10 mg twice a day for 1 week and then 5 mg twice a day for about 3-month
Discontinue Midline right upper extremity today
Suspect change in mental status admission likely secondary to toxic metabolic encephalopathy and sundowning:
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 Per brother she also have cognitive impairment/intellectual disability
Psychiatry evaluated the patient-will defer to psychiatry in terms of antidepressants, antipsychotics, sleeping aids. Psychiatry has restarted all or most of her psych medications.
She is currently on one to one observation
She typically comes back in restraints at nighttime
Aspiration pneumonia:
Completed course of antibiotics per ID
ID consult appreciated
Speech therapy following-on IDDSI level 5
GI evaluated the patient and felt there was no need for further GI intervention unless significant pathology on images. Plan on doing esophagogram today (needs to be n.p.o. by radiology).
NSVT:
No recurrence so far but continue cardiac monitoring
Keep potassium above 4 and magnesium above 2
Reviewed echocardiogram, normal EF.
QTc prolongation:
Avoid QTc prolonging medications
Cardiac monitoring
Reviewed serial twelve-lead EKG
Hypokalemia:
Replete and trend
Hypomagnesemia:
Replete and trend
Septic shock secondary to aspiration pneumonia
Resolved
Lactic acidosis
Resolved
Transient bradycardia
Resolved
Acute metabolic acidosis
Resolved
Diabetes mellitus
A1c 7
Diabetes EHS TEACHER on board
Continue insulin sliding scale
Restarted long-acting insulin since patient tolerating diet but on hold due to n.p.o. for procedure
Hold metformin
History of asthma
Does not appear to be an asthma exacerbation
Hyperlipidemia
Restarted statins
Hypothyroidism
Restarted thyroid replacement
Morbid obesity secondary to excess calories
Monitor
GERD
Continue oral PPI
DVT prophylaxis
Lovenox SQ
CODE STATUS
Full code
Total time spent on today's encounter was 52 minutes which included time spent in counseling the patient/family regarding diagnosis and treatment plan as listed above, goals of care, and symptom management. Case was discussed with nursing staff,
specialists, and care coordinators/case management. All labs and imaging personally reviewed by me. Remainder the time spent in detailed review of previous records, lab data, imaging, and other medical provider documentation.
Anticipated Discharge: 24 - 48 hours
Subjective/Interval History
-
Date of Service: September 26, 2024
Patient alert this morning although relatively sleepy. Remains on supplemental oxygen. No bleeding. Afebrile
Objective Data
-
Labs:
Laboratory Results
09/26/24
07:49
WBC 6.7
Hgb 11.2 L
Hct 34.7 L
Plt Count 235
Sodium Pending
Potassium Pending
Chloride Pending
Carbon Dioxide Pending
BUN Pending
Creatinine Pending
Glucose Pending
Calcium Pending
Vital Signs:
Vital Signs
Temp Pulse Resp BP Pulse Ox
98.1 F 87 17 146/45 95
09/26/24 07:25 09/26/24 07:25 09/26/24 07:25 09/26/24 07:25 09/26/24 07:25
I&O
09/25/24 09/26/24 09/27/24
06:59 06:59 06:59
Intake Total 1280 / 1280 1010 / 1010
Output Total 5350 / 5350 1300 / 1300
Balance -4070 / -4070 -290 / -290
[2024-09-26 08:31] LABS: Blood Urea Nitrogen 10 mg/dl (7-17); Calcium 8.2 mg/dl (8.4-10.2); Carbon Dioxide 30 mmol/L (22-30); Chloride 110 mmol/L (98-107); Estimated Creatinine Clearance 97 ml/min; Glucose 228 mg/dl (70-99); Magnesium 2.1 mg/dl (1.6-2.3); Potassium 3.8 mmol/L (3.5-5.1); Sodium 141 mmol/L (135-145); eGFR > 60.00
[2024-09-26] MEDS: NOVOLOG FLEXPEN-LOW RESISTANCE 2 UNITS SC (09:01)
[2024-09-26] MEDS: LASIX 40 MG IV (09:08)
[2024-09-26] MEDS: PROZAC PO (09:10)
[2024-09-26] MEDS: MIRALAX TUBE (09:11)
[2024-09-26] MEDS: DESENEX/MITRAZOL/ZEASORB 1 APPLIC TOPICAL ×2 (09:11→21:23)
[2024-09-26] MEDS: PROTONIX PO (09:11)
[2024-09-26] MEDS: NOVOLOG FLEXPEN SC (09:12)
[2024-09-26 09:32] LABS: Glucose - Point of Care 223 mg/dl (70-99)
--- NOTE | 2024-09-26 09:34 | W.PN.PUL3 ---
Today's Communication / Plan
-
Esophagram and CTH pending today
Speech following, aspiration risk noted
CXR improving
AMBER likely but unclear if PAP therapy would be tolerated or if risks > benefit
PT/OT ongoing, but unable to rehab well
Remains on 4L but may be more to do with obesity and decreased movements
Difficult situation given her baseline cognitive impairment
Assessment
-
69-year-old non-smoking female with Down syndrome who reportedly had a choking episode on a hot dog yesterday but no obvious aspiration of the hot dog but possible aspiration of oral contents presented with obtundation requiring intubation
mechanical ventilation-law professor consulted for ventilator/aspiration pneumonia/sepsis/critical care management 09/18/2024; pt now transferred out of ICU as of 09/21 and pulmonary service is continuing to follow along.
Ventilator dependent respiratory failure secondary to aspiration pneumonia and hypoxemic/hypercapnic respiratory failure
Intubated 09/17/24
Extubated 09/19/24 (self extubated)
Septic shock due to multifocal pneumonia due to suspected aspiration (shock state resolved)
Dysphagia with suspected esophageal stricture
Leukocytosis
Metabolic acidosis - resolved
DM type II c/b hyperglycemia
Lactic acidosis - resolved
Elevated total bilirubin - resolved
Pulmonary hypertension with RV hypokinesis (PASP: 46 mmHg per echo on 09/19/2024)
Conditions present prior to admission:
Down syndrome.
Dysphagia.
Obesity-BMI 41
AMBER suspected.
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
Plan/recommendations
Appears to be comfortable, 94% on 4 L, decreased from 6 L
Doppler negative for clot, upper extremity Doppler showing chronic occlusions--placde on Eliquis twice daily
Chest x-ray with bilateral patchy infiltrate, improved aeration compared to 09/22
Unfortunately patient continues to be aspiration risk
Per Dr. Blount, BiPAP was discontinued given aspiration risk
Suspect AMBER but would not be feasible to offer PAP
Moving forward
Continue with aspiration precautions, head of bed elevated
Ongoing work for for esophageal issue
Esophagram today
Unfortunately, patient agitation and difficulty cooperating with exam makes this difficult
SOFTWARE ASSET MANAGEMENT ANALYST evaluated her on 09/22, and cleared her for IDDSI level 5 diet with thin liquids
Continue with aspiration precautions, keeping HOB >30-45�
Ambulate, out of bed to chair
On CTA chest from 09/17/2024, she had multifocal opacities involving the right upper lobe, lingula + left lower lobe with small amounts of tree-in-bud nodular opacities/infiltrates in the right lower lobe - suspect aspiration
She does have a good cough, however becomes easily agitated + anxious with care
Of note, she was a difficult intubation and required a #6 ETT
Continue with antibiotics, completed Zosyn -currently off antibiotics
Blood cultures collected on 09/17 show NGTD
Urinations for Legionella + strep pneumonia both negative
Collect sputum culture if patient can produce a decent sample, although may be a moot point considering patient's been on antibiotics since 09/17, and remains afebrile
Repeat CXR showing improving PNA
She is on Wixela as an outpatient, and we will continue with Advair HFA 115mcg 2 puffs BID while hospitalized
Continue prn DuoNebs
As of 09/23, she has a dry sounding cough
Monitor agitation
Try to avoid benzodiazepines as this would help agitation in the short-term but has high risk of acute respiratory depression and causing rebound agitation
Psychiatry on board and recs appreciated
Continue with prn Risperdal, however if patient not cooperating then would administer Zyprexa IM but would need to monitor (QTc 519 ms - per EKG on 09/23)
CT head pending for change in MS
Earlier in hospitalization she had elevated pCO2 at 50, however she was lethargic at this time hence unclear if she has chronic hypercapnia
Given her obesity, she is at elevated risk of obesity hypoventilation syndrome + AMBER
Can discuss sleep disordered breathing as an outpatient, although unclear if it is safe to start chronic PAP therapy considering multifocal pneumonia during current hospitalization which is thought to be from aspiration
ABG showing compensated CO2 retention
DVT prophylaxis: LMWH
GI prophylaxis: On Protonix (home medication)
PT saw the patient on 09/21 and no skilled PT was recommended at that time
Disposition efforts
Diagnostic data:
Chest x-ray 09/17/2024-bilateral pneumonia left greater than right
09/26/24- Bilateral opacification which could represent pneumonia, improved on the right.
CT chest 09/17/2024-no evidence for central or segmental pulmonary emboli, bilateral perihilar consolidations consistent with multifocal pneumonia and 9 mm nodule opacification superior left upper lobe may be infectious in nature though follow-up
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
discrete mass cannot be excluded
UE Duplex 09/25/24- Superficial thrombosis of the cephalic and basilic veins of both arms. Chronic appearing webbing/nonocclusive thrombus in the right internal jugular vein.
Total time spent today was 50 minutes for this encounter. Time includes reviewing laboratory test/imaging results, reviewing pertinent medical records, obtaining and reviewing medical history, performing an appropriate exam, ordering medications,
tests and procedures. Time also includes documentation of this encounter, coordinating patient care and communicating with other healthcare professionals. Total time does not include separately billed tests performed on this date of service.
Subjective Data
-
Date of Service:
Date of Service: September 26, 2024
Chief Complaint: Pulmonary Follow Up
Subjective:
Remains on o2, no new complaints
Family at bedside
Objective Data
Data Reviewed
Vital Signs / I&O / Oxygen:
Vital Signs
Temp Pulse Resp BP Pulse Ox
98.1 F 88 18 146/45 92
09/26/24 07:25 09/26/24 09:08 09/26/24 08:17 07/14/25 09:08 09/26/24 09:29
Intake and Output
09/25/24 09/26/24 09/27/24
06:59 06:59 06:59
Intake Total 1280 / 1280 1010 / 1010
Output Total 5350 / 5350 1300 / 1300
Balance -4070 / -4070 -290 / -290
SaO2 [A/C] 98
SaO2 92
Nasal Cannula flow liters per 4
minute
Physical Exam
General: Comfortable and Good Appetite
HEENT: Normocephalic, Sinus Tenderness, Moist Mucous Membranes and Other (Thick neck)
Cardiovascular: S1-S2, Regular Rhythm, Murmur (n), Rub (negative) and Peripheral Edema (+1 bilateral lower extremity pitting edema)
Respiratory: Clear (decreased overall BS), Wheeze (negative), Crackles (n), Non-Labored Respirations and Stridor (negative)
GI: Soft, Distended (Abdominal obesity) and Non Tender
Neurology: Awake, Alert (Conversant, answers questions) and Other (baseline cognitive impairment noted)
Skin: Warm, Dry, Bruising (Upper extremities/forearms) and Other (Morbidly obese female, in NAD)
Labs/Micro/Reports
Lab Data
09/26/24 07:49
09/26/24 07:49
Microbiology
09/17/24 17:24 Blood/Venous Blood Culture - Final
No Growth - Final Report
[2024-09-26] MEDS: LANTUS 0.2 UNITS SC (09:49)
--- NOTE | 2024-09-26 10:48 | VATNOTE ---
Per physician's order Right Midline Catheter was removed. TCL 12cm. Dressing applied to site. Pressure held for several minutes.
--- NOTE | 2024-09-26 11:48 | CM ---
Reviewed the chart notes. Patient continues with 1:1. Restraints removed at 6am today. Patient will need to be off 1:1 for 24 hrs for facility to accept back. CM continues to be available to patient/family and is monitoring medical plan for
needs at discharge.
Plan: Discharge back to [facility] when medically stable. No auth required due to patient being a long-term resident.
[2024-09-26] MEDS: REMOVE LIDOCAINE PATCH 1 PATCH REMOVE (11:51)
[2024-09-26 12:29] LABS: Glucose - Point of Care 186 mg/dl (70-99)
[2024-09-26] MEDS: NOVOLOG FLEXPEN 8 UNITS SC ×2 (12:44→18:11)
[2024-09-26] MEDS: NOVOLOG FLEXPEN-LOW RESISTANCE 1 UNITS SC (12:45)
[2024-09-26] MEDS: APRESOLINE 10 MG IV (16:34)
[2024-09-26 17:40] LABS: Glucose - Point of Care 140 mg/dl (70-99)
[2024-09-26] MEDS: NOVOLOG FLEXPEN-LOW RESISTANCE SC (17:42)
[2024-09-26 17:50] LABS: Urine Character Clear (Clear)
[2024-09-26 18:57] LABS: Urine Red Blood Cell 21-25 /HPF (0-2); Urine Squamous Cell 21-25 /LPF (Few); Urine White Cell 30-40 /HPF (0-5)
[2024-09-26 20:59] LABS: Glucose - Point of Care 157 mg/dl (70-99)
[2024-09-26] MEDS: LIPITOR 10 MG PO (21:23)
[2024-09-26] MEDS: ELIQUIS 10 MG PO (21:23)
[2024-09-26] MEDS: DESYREL 50 MG PO (21:23)
[2024-09-26] MEDS: LIDOCAINE 4% PATCH 1 PATCH TOPICAL (21:24)
[2024-09-27] VITALS (9 sets, daily range): BP systolic 113–180; BP diastolic 56–91; PULSE 83; O2SAT 94; BMI 37.5
[2024-09-27 06:07] LABS: Hematocrit 36.9 % (37.0-47.0); Hemoglobin 12.0 g/dL (12.0-16.0); Mean Corp Hgb Conc. 32.5 g/dL (33.0-37.0); Mean Corpuscular Volume 94.1 fL (81.0-99.0); Platelet Count 263 10^3/uL (130-400); Red Cell Dist. Width 15.4 % (11.5-14.5)
[2024-09-27] MEDS: SYNTHROID 125 MCG PO (06:09)
[2024-09-27 06:38] LABS: Blood Urea Nitrogen 15 mg/dl (7-17); Calcium 8.9 mg/dl (8.4-10.2); Carbon Dioxide 30 mmol/L (22-30); Chloride 109 mmol/L (98-107); Estimated Creatinine Clearance 71 ml/min; Glucose 221 mg/dl (70-99); Potassium 3.8 mmol/L (3.5-5.1); Sodium 142 mmol/L (135-145); eGFR > 60.00
[2024-09-27 07:48] LABS: Glucose - Point of Care 253 mg/dl (70-99)
--- NOTE | 2024-09-27 07:54 | PN.DE.MGMTRT ---
Insulin Management
- -
09/27/2024: Diabetes Management Follow up
Patient admitted 09/17 with acute respiratory distress. PMH: Down syndrome who reportedly had a choking episode on a hot dog with possible aspiration of oral contents. 09/17 in the ED patient was unresponsive requiring intubation- mechanical
ventilation due to Acute hypoxic hypercapnic respiratory failure 2/2 aspiration pneumonia/sepsis. Prior to admission, was taking Lantus 30 units daily, Lispro 12 units AC and Metformin 1000mg BID. A1C 7%, Cr 0.7, eGFR >60.
Patient is sleeping, not awakened. Steroids stopped on 09/21.
09/22 started puree diet, appetite has improved, eating 100% of her meals.
09/26 premeal range 140 to 223, required 1-2 units of additional corrective insulin. HS glucose was 1571 fasting 221 V, 253 POC this AM.
Will increase Lantus to 22 units and AC NovoLog to 10 units (was taking Lantus 30 units and Lispro 12 units TID).
Will cont to monitor and adjust insulin dose if necessary.
Diabetes History
- -
Type of Diabetes: 2 requiring insulin
Pre-Admission Diabetes Regimen
09/26/24 09/27/24
07:49 05:34
Creatinine 0.5 L 0.8
Lab Results
Hemoglobin A1c 7.0 % (4.0-5.6) H 09/18/24 12:18
Insulin Pump Settings
IP Diabetes Regimen
09/26/24 09/26/24 09/26/24
07:49 09:30 12:28
Glucose 228 H
POC Glucose 223 H 186 H
09/26/24 09/26/24 09/27/24
17:39 20:58 05:34
Glucose 221 H
POC Glucose 140 H 157 H
09/27/24
07:46
Glucose
POC Glucose 253 H
Meal type: Lunch
Meal type: Lunch
Meal type: Breakfast
Amount consumed: 75%
Amount consumed: 85%
Patient Education
[2024-09-27] MEDS: ADVAIR HFA 115/21 MCG INHALER 2 PUFF INH ×2 (07:58→17:56)
[2024-09-27] MEDS: LANTUS SC (08:23)
[2024-09-27] MEDS: NOVOLOG FLEXPEN SC (08:23)
--- NOTE | 2024-09-27 08:28 | W.PN.HOSP.TC ---
Addendum entered and electronically signed by Alonso Elizondo MD 09/27/24 18:46:
CTA positive for PE-this is cause of her chest pain, elevated troponin, and ongoing hypoxemia. Hold Eliquis and start Heparin drip. Hematology consulted as well.
Addendum entered and electronically signed by Alonso Elizondo MD 09/27/24 12:33:
Complains of chest pain today midsternal 8 out of 10. Came back and reevaluated her today. Twelve-lead EKG, cardiac enzymes, CTA of the chest, pain medications.
Original Note:
Today's Communication/Plan
-
Oxygen supplementation.
Assessment / Plan
Assessment / Plan
Physical exam:
General: Acute on chronically ill. Obese
HEENT: Normocephalic, Atraumatic and Moist Mucous Membranes
Respiratory: Bilateral crackles, no wheezes or rhonchi
Cardiac: Regular Rhythm and S1/S2
GI: Soft, Nontender and Nondistended
Musculoskeletal: No Clubbing, No Cyanosis. Bruises on both arms. Bilateral trace lower extremity edema
Neuro: Awake, Alert, oriented, generalized weakness, no neurological deficits
Psych: Calm, cognitive deficits present
A/P:
Acute hypoxic respiratory failure:
Appears to be multifactorial likely aspiration pneumonia, volume overload, suspected ?OHS/AMBER, obesity, other
Lower extremity Dopplers negative for DVT
She has a Ortiz catheter in place-plan for removal today
At some point patient was intubated and self extubated.
On supplemental oxygen-currently on 4 L of oxygen. Wean as tolerated
Repeated chest x-ray yesterday-showed improvement
Pulmonary on board
Discussed with brother at bedside prior
Discussed with attending RN
PT OT eval
Home oxygen assessment
supply chain development manager to start working on discharge disposition
Acute diastolic CHF:
IV Lasix 40 mg yesterday. Will use diuresis as needed moving forward.
Chest x-ray today showed significant improvement correlating with some degree of volume overload.
BNP trended down
Oxygenation fluctuating 4 L
Discontinue Ortiz
Right IJ DVT/ Superficial thrombosis:
Continue Eliquis--> 10 mg twice a day for 1 week and then 5 mg twice a day for about 3-month
Discontinued Midline right upper extremity
Suspect change in mental status admission likely secondary to toxic metabolic encephalopathy and sundowning:
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 Per brother she also have cognitive impairment/intellectual disability
Psychiatry evaluated the patient-will defer to psychiatry in terms of antidepressants, antipsychotics, sleeping aids. Psychiatry has restarted all or most of her psych medications.
She is currently on one to one observation
She typically comes back in restraints at nighttime
Aspiration pneumonia:
Completed course of antibiotics per ID
ID consult appreciated
Speech therapy following-on IDDSI level 5
GI evaluated the patient and felt there was no need for further GI intervention unless significant pathology on images. Plan on doing esophagogram today (needs to be n.p.o. by radiology).
NSVT:
No recurrence so far but continue cardiac monitoring
Keep potassium above 4 and magnesium above 2
Reviewed echocardiogram, normal EF.
QTc prolongation:
Avoid QTc prolonging medications
Cardiac monitoring
Reviewed serial twelve-lead EKG
Hypokalemia:
Replete and trend
Hypomagnesemia:
Replete and trend
Septic shock secondary to aspiration pneumonia
Resolved
Lactic acidosis
Resolved
Transient bradycardia
Resolved
Acute metabolic acidosis
Resolved
Diabetes mellitus
A1c 7
Diabetes CORPSMAN on board
Continue insulin sliding scale
Restarted long-acting insulin since patient tolerating diet but on hold due to n.p.o. for procedure
Hold metformin
History of asthma
Does not appear to be an asthma exacerbation
Hyperlipidemia
Restarted statins
Hypothyroidism
Restarted thyroid replacement
Morbid obesity secondary to excess calories
Monitor
GERD
Continue oral PPI
DVT prophylaxis
Lovenox SQ
CODE STATUS
Full code
Time spent 35 minutes
Anticipated Discharge: 24 - 48 hours
Subjective/Interval History
-
Date of Service: September 27, 2024
Patient alert this morning but was also sleepy and wanted to sleep more. No chest pain or shortness of breath. Remains on supplemental oxygen. Afebrile
Objective Data
-
Labs:
Laboratory Results
09/27/24
05:34
WBC 7.6
Hgb 12.0
Hct 36.9 L
Plt Count 263
Sodium 142
Potassium 3.8
Chloride 109 H
Carbon Dioxide 30
BUN 15
Creatinine 0.8
Glucose 221 H
Calcium 8.9
Vital Signs:
Vital Signs
Temp Pulse Resp BP Pulse Ox
97.8 F 102 18 113/87 95
09/27/24 07:30 09/27/24 08:00 09/27/24 08:00 09/27/24 07:30 09/27/24 08:00
I&O
09/26/24 09/27/24 09/28/24
06:59 06:59 06:59
Intake Total 1010 / 1010 600 / 600
Output Total 1300 / 1300 2900 / 2900
Balance -290 / -290 -2300 / -2300
[2024-09-27] MEDS: NOVOLOG FLEXPEN 10 UNITS SC ×3 (08:58→16:43)
[2024-09-27] MEDS: NOVOLOG FLEXPEN-LOW RESISTANCE 3 UNITS SC (08:58)
[2024-09-27] MEDS: PROZAC 40 MG PO (09:00)
[2024-09-27] MEDS: PROTONIX 40 MG PO (09:00)
[2024-09-27] MEDS: MIRALAX 17 GRAMS TUBE (09:00)
[2024-09-27] MEDS: REMOVE LIDOCAINE PATCH 1 PATCH REMOVE (09:00)
[2024-09-27] MEDS: DESENEX/MITRAZOL/ZEASORB 1 APPLIC TOPICAL ×2 (09:00→21:01)
[2024-09-27] MEDS: ELIQUIS 10 MG PO (09:00)
[2024-09-27] MEDS: LANTUS 0.2 UNITS SC (09:01)
--- NOTE | 2024-09-27 09:30 | W.PN.PUL3 ---
Today's Communication / Plan
-
Ongoing hypoxemia but this is likely related to obesity/deconditioning/RLD/untreated AMBER-- remains on 4L
I discussed realistic expectations wtih family, that likely she will not come off unless she undergoes aggressive rehab--for now would just continue O2 as outpatient as needed at facility
Continued aspiration is also an issue, but cannot be resolved given her MS
PAP therapy likely to cause more harm than benefit
They understood and agreed
Recommend discharge planning if all w/u otherwise negative
No further recs from our standpoint, we will sign off at this time, please call with questions
Assessment
-
69-year-old non-smoking female with Down syndrome who reportedly had a choking episode on a hot dog yesterday but no obvious aspiration of the hot dog but possible aspiration of oral contents presented with obtundation requiring intubation
mechanical ventilation-activities leader consulted for ventilator/aspiration pneumonia/sepsis/critical care management 09/18/2024; pt now transferred out of ICU as of 09/21 and pulmonary service is continuing to follow along.
Ventilator dependent respiratory failure secondary to aspiration pneumonia and hypoxemic/hypercapnic respiratory failure
Intubated 09/17/24
Extubated 09/19/24 (self extubated)
Septic shock due to multifocal pneumonia due to suspected aspiration (shock state resolved)
Dysphagia with suspected esophageal stricture
Leukocytosis
Metabolic acidosis - resolved
DM type II c/b hyperglycemia
Lactic acidosis - resolved
Elevated total bilirubin - resolved
Pulmonary hypertension with RV hypokinesis (PASP: 46 mmHg per echo on 09/19/2024)
Conditions present prior to admission:
Down syndrome.
Dysphagia.
Obesity-BMI 41
AMBER suspected.
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
Plan/recommendations
Appears to be comfortable, 94% on 4 L, decreased from 6 L
Doppler negative for clot, upper extremity Doppler showing chronic occlusions--placde on Eliquis twice daily
Chest x-ray with bilateral patchy infiltrate, improved aeration compared to 09/22
Unfortunately patient continues to be aspiration risk
Per Dr. Blount, BiPAP was discontinued given aspiration risk
Suspect AMBER but would not be feasible to offer PAP
Moving forward
Continue with aspiration precautions, head of bed elevated
Ongoing work for for esophageal issue
Esophagram today
Unfortunately, patient agitation and difficulty cooperating with exam makes this difficult
CIVIL DIVISION DEPUTY SHERIFF evaluated her on 09/22, and cleared her for IDDSI level 5 diet with thin liquids
Continue with aspiration precautions, keeping HOB >30-45�
Ambulate, out of bed to chair
On CTA chest from 09/17/2024, she had multifocal opacities involving the right upper lobe, lingula + left lower lobe with small amounts of tree-in-bud nodular opacities/infiltrates in the right lower lobe - suspect aspiration
She does have a good cough, however becomes easily agitated + anxious with care
Of note, she was a difficult intubation and required a #6 ETT
Continue with antibiotics, completed Zosyn -currently off antibiotics
Blood cultures collected on 09/17 show NGTD
Urinations for Legionella + strep pneumonia both negative
Collect sputum culture if patient can produce a decent sample, although may be a moot point considering patient's been on antibiotics since 09/17, and remains afebrile
Repeat CXR showing improving PNA
She is on Wixela as an outpatient, and we will continue with Advair HFA 115mcg 2 puffs BID while hospitalized
Continue prn DuoNebs
As of 09/23, she has a dry sounding cough
Monitor agitation
Try to avoid benzodiazepines as this would help agitation in the short-term but has high risk of acute respiratory depression and causing rebound agitation
Psychiatry on board and recs appreciated
Continue with prn Risperdal, however if patient not cooperating then would administer Zyprexa IM but would need to monitor (QTc 519 ms - per EKG on 09/23)
CT head pending for change in MS--negative
Earlier in hospitalization she had elevated pCO2 at 50, however she was lethargic at this time hence unclear if she has chronic hypercapnia
Given her obesity, she is at elevated risk of obesity hypoventilation syndrome + AMBER
Can discuss sleep disordered breathing as an outpatient, although unclear if it is safe to start chronic PAP therapy considering multifocal pneumonia during current hospitalization which is thought to be from aspiration
ABG showing compensated CO2 retention
DVT prophylaxis: LMWH
GI prophylaxis: On Protonix (home medication)
PT saw the patient on 09/21 and no skilled PT was recommended at that time
Disposition efforts
Diagnostic data:
Chest x-ray 09/17/2024-bilateral pneumonia left greater than right
09/26/24- Bilateral opacification which could represent pneumonia, improved on the right.
CT chest 09/17/2024-no evidence for central or segmental pulmonary emboli, bilateral perihilar consolidations consistent with multifocal pneumonia and 9 mm nodule opacification superior left upper lobe may be infectious in nature though follow-up
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
discrete mass cannot be excluded
UE Duplex 09/25/24- Superficial thrombosis of the cephalic and basilic veins of both arms. Chronic appearing webbing/nonocclusive thrombus in the right internal jugular vein.
Total time spent today was 45 minutes for this encounter. Time includes reviewing laboratory test/imaging results, reviewing pertinent medical records, obtaining and reviewing medical history, performing an appropriate exam, ordering medications,
tests and procedures. Time also includes documentation of this encounter, coordinating patient care and communicating with other healthcare professionals. Total time does not include separately billed tests performed on this date of service.
Subjective Data
-
Date of Service:
Date of Service: September 27, 2024
Chief Complaint: Pulmonary Follow Up
Subjective:
No new complaints, remains clinically unchanged
Objective Data
Data Reviewed
Vital Signs / I&O / Oxygen:
Vital Signs
Temp Pulse Resp BP Pulse Ox
97.8 F 102 18 113/87 95
09/27/24 07:30 09/27/24 08:00 09/27/24 08:00 09/27/24 07:30 09/27/24 08:00
Intake and Output
09/26/24 09/27/24 09/28/24
06:59 06:59 06:59
Intake Total 1010 / 1010 600 / 600
Output Total 1300 / 1300 2900 / 2900
Balance -290 / -290 -2300 / -2300
SaO2 [A/C] 98
SaO2 95
Nasal Cannula flow liters per 4
minute
Physical Exam
General: Comfortable and Good Appetite
HEENT: Normocephalic, Sinus Tenderness, Moist Mucous Membranes and Other (Thick neck)
Cardiovascular: S1-S2, Regular Rhythm, Murmur (n), Rub (negative) and Peripheral Edema (+1 bilateral lower extremity pitting edema)
Respiratory: Clear (decreased overall BS), Wheeze (negative), Crackles (n), Non-Labored Respirations and Stridor (negative)
GI: Soft, Distended (Abdominal obesity) and Non Tender
Neurology: Awake, Alert (Conversant, answers questions) and Other (baseline cognitive impairment noted)
Skin: Warm, Dry, Bruising (Upper extremities/forearms) and Other (Morbidly obese female, in NAD)
Labs/Micro/Reports
Lab Data
09/27/24 05:34
09/27/24 05:34
--- NOTE | 2024-09-27 10:02 | PTCARENOTE ---
Patient cooperative. Resting comfortably in bed. Call traore within reach. 1:1 d/c.
[2024-09-27] MEDS: NOVOLOG FLEXPEN-LOW RESISTANCE SC ×2 (11:57→16:42)
[2024-09-27] MEDS: TYLENOL 650 MG PO (11:59)
[2024-09-27 12:40] LABS: Glucose - Point of Care 144 mg/dl (70-99)
[2024-09-27 13:15] LABS: Troponin I 0.055 ng/ml
[2024-09-27] MEDS: MORPHINE SULFATE 2 MG IV (14:07)
--- NOTE | 2024-09-27 15:30 | PTCARENOTE ---
Patient with c/o of middle CP. MD made aware. Came to assess patient. EKG/ troponins ordered. Tylenol given for chest discomfort with no relief. Patient received PRN morphine per prn order which gave patient pain relief. Chest CT noted. Hematology
c/s. Per MD if chest pain persists, will initiate a heparin gtt. Will pass along to nightshift rn. Patient resting comfortably. Call traore within reach.
--- NOTE | 2024-09-27 15:42 | CM ---
Addendum entered by Arlette Hoff 09/28/24 11:02:
[facility] Report:[phone]
[facility]
Original Note:
CM spoke with Sebas/[facility] admissions
Update provided
1:1 has been removed
Discharge Disposition- return to [facility] for LTC
[2024-09-27 16:42] LABS: Glucose - Point of Care 128 mg/dl (70-99)
[2024-09-27 19:32] LABS: Hematocrit 38.3 % (37.0-47.0); Hemoglobin 12.5 g/dL (12.0-16.0); Mean Corp Hgb Conc. 32.6 g/dL (33.0-37.0); Mean Corpuscular Volume 94.3 fL (81.0-99.0); Platelet Count 287 10^3/uL (130-400); Red Cell Dist. Width 15.6 % (11.5-14.5)
[2024-09-27 19:43] LABS: APTT 32.2 Sec (23.4-35.0)
[2024-09-27 20:04] LABS: Troponin I 0.059 ng/ml
[2024-09-27] MEDS: HEPARIN 7400 UNITS IV (20:05)
[2024-09-27] MEDS: HEPARIN 25000 UNITS/250 ML IV (20:06)
[2024-09-27] MEDS: LIPITOR 10 MG PO (21:01)
[2024-09-27] MEDS: DESYREL 50 MG PO (21:01)
[2024-09-27] MEDS: RISPERDAL M-TAB (ORALLY DISINTEGRATING) 0.5 MG PO (21:01)
[2024-09-27] MEDS: LIDOCAINE 4% PATCH 1 PATCH TOPICAL (21:01)
[2024-09-27 21:03] LABS: Glucose - Point of Care 115 mg/dl (70-99)
[2024-09-28 02:02] LABS: Troponin I 0.056 ng/ml
[2024-09-28 02:03] LABS: APTT > 200 Sec (23.4-35.0)
[2024-09-28 03:00] VITALS: BP 120/85
[2024-09-28 04:59] VITALS: BMI 37.7
[2024-09-28] MEDS: SYNTHROID 125 MCG PO (06:01)
--- NOTE | 2024-09-28 06:26 | PTCARENOTE ---
0200, PTT >200 Richard CROOKS notified, Heparin Drip stopped for two hours per protocol. resumed drip at 0400 and decreased by 4 per protocol, Heparin drip now infusing at 13 m/hr, next PTT 1000.
[2024-09-28 07:00] VITALS: BP 147/98
[2024-09-28] MEDS: ADVAIR HFA 115/21 MCG INHALER 2 PUFF INH (07:16)
[2024-09-28 07:20] VITALS: BP 147/98
[2024-09-28 07:36] LABS: Glucose - Point of Care 185 mg/dl (70-99)
--- NOTE | 2024-09-28 07:40 | CON.ONC ---
Consultation
-
Date Consultation Requested: 09/27/24
Date Consultation Performed: 09/28/24
Requesting Provider: Caro
Performing Provider: Omero
Reason for Consultation: PE
Impression
Impression
Low clot burden pulmonary embolism
B/L superficial upper extremity right IJ DVT
Obesity
Down syndrome
Multifactorial resp. Aspiration pneumonia, volume overload, obesity, obstructive sleep apnea
Plan
Plan
Patient was started on Eliquis when she was noted to have upper extremity VTE.
She was switched to IV heparin when the small minimal burden PE was discovered on chest CT.
At this point, I think Eliquis is a reasonable anticoagulant for treatment at the doses started previously namely:
Eliquis apixaban 10 mg PO BID x 7 days then 5 mg PO BID x 3 months.
I suspect 3 months of therapeutic anticoagulation is a reasonable duration of anticoagulation for this patient and I do not think that a hypercoagulable workup is required as patient has multiple risk factors for VTE including obesity, sedentary,
sepsis, immobility.
After she completes 3 months of therapeutic anticoagulation, her primary care physician can make the decision whether or not to consider long-term prophylactic anticoagulation based on the risk-benefit analysis specifically related to bleeding risk.
Would not change any anticoagulation orders and leave that up to the primary hospitalist team. Will sign off so please call us if any additional questions arise.
Patient History
History of Present Illness
CC: SOB, PE
HPI: 69-year-old female with Down syndrome who reportedly had a choking episode on a hot dog prior to presentation presented with obtundation requiring intubation & mechanical ventilation. During her hospitalization she has had worsening multifocal
pneumonia felt to be presumed aspiration pneumonia. She initially was intubated on 09/17 but self extubated on 09/19. She had a septic shock. She was being treated with DVT prophylaxis with LMWH. She has been maintained on supplemental O2 4 L/min
nasal cannula I was having complaints of chest pain that was felt to be related to a combination of issues including obesity, deconditioning, lying restrictive lung disease and untreated obstructive sleep apnea. Lower extremity Doppler ultrasounds
on 09/24/2024 were negative for DVT although examination limited based on large body habitus. The next day on 09/25/2024 upper extremity Doppler ultrasounds were performed for upper extremity swelling and this study was positive for superficial
thrombosis of the cephalic and basilic veins of both arms as well as chronic nonocclusive thrombus in the right internal jugular vein. This led to transition from prophylactic LMWH to Eliquis loading dose 10 mg PO BID. Because of ongoing chest pain
and hypoxia requiring O2, a CT angiogram was performed yesterday 09/27/2024 which shows positive for 2 small pulmonary emboli with minimal clot burden. Also seen with severe bilateral groundglass densities concerning for developing pneumonia. Once
this CT scan was resulted, the Eliquis was transitioned to IV heparin. Hematology was therefore consulted.
Patient is a poor historian, currently sleeping but easily arousable but unable to give me significant history. She appears comfortable.
Past-Medical/Surgical History
PMH: Down syndrome. Dysphagia. Obesity. AMBER suspected. Diabetes mellitus. Asthma. Hyperlipidemia. Hypothyroidism. Morbid obesity. GERD
SH:
Tobacco: Non-smoker
Alcohol: None
Drug: None
Personal: Single
Living: Shelter
Patient Medication
�Medication �Instructions �Recorded �Confirmed �Last Taken �Type
aripiprazole 2 mg tablet 2 mg PO HS Mental Health/Anxiety 09/18/24 09/18/24 09/15/24 20:54 History
aspirin 81 mg capsule 81 mg PO DAILY Blood Clot 09/18/24 09/18/24 09/16/24 10:14 History
Prevention/Tx
buspirone 5 mg tablet 5 mg PO TID Mental Health/Anxiety 09/18/24 09/18/24 09/16/24 13:23 History
cetirizine 10 mg tablet 10 mg PO DAILY Allergies 09/18/24 09/18/24 09/16/24 10:14 History
etodolac 400 mg tablet 400 mg PO DAILY Anti-Inflammatory 09/18/24 09/18/24 09/16/24 10:15 History
ezetimibe 10 mg tablet 10 mg PO DAILY High Cholesterol 09/18/24 09/18/24 09/15/24 20:54 History
fluoxetine 40 mg capsule 40 mg PO DAILY Depression 09/18/24 09/18/24 09/16/24 10:15 History
fluticasone 250 mcg-salmeterol 50 1 inh inhalation BID 09/18/24 09/18/24 09/17/24 10:41 History
mcg/dose blistr powdr for Lung/Breathing Issues
inhalation (Wixela Inhub)
fluvastatin 40 mg capsule 40 mg PO HS High Cholesterol 09/18/24 09/18/24 09/15/24 20:54 History
insulin glargine 100 unit/mL (3 30 unit SC DAILY Diabetes 09/18/24 09/18/24 09/17/24 11:05 History
mL) subcutaneous pen (Lantus
Solostar U-100 Insulin)
insulin lispro 100 unit/mL 12 unit SC TID Diabetes 09/18/24 09/18/24 09/17/24 12:05 History
subcutaneous pen
levothyroxine 125 mcg tablet 125 mcg PO DAILY Thyroid 09/18/24 09/18/24 09/16/24 05:14 History
metformin 500 mg tablet 500 mg PO BID Diabetes 09/18/24 09/18/24 09/16/24 10:16 History
omeprazole 20 mg tablet,delayed 20 mg PO DAILY Gastrointestinal 09/18/24 09/18/24 09/16/24 05:14 History
release Issue
trazodone 50 mg tablet 50 mg PO HS Depression 09/18/24 09/18/24 09/15/24 20:54 History
Active Medications
Generic Name Dose Route Start Last Admin
Trade Name Freq PRN Reason Stop Dose Admin
Acetaminophen 650 mg 09/23/24 16:27 09/27/24 11:59
Acetaminophen 325 Mg Tablet PO 10/21/24 16:26 650 mg
Q6HPRN PRN Administration
mild pain/ fever>100.5F
Albuterol/Ipratropium 3 ml 09/19/24 20:06 09/22/24 07:45
Ipratropium 0.5/Albuterol 3 Mg (3 Ml Ampul) INH 3 ml
R Q4HPRN PRN Administration
cough/sob
Protocol
Atorvastatin Calcium 10 mg 09/23/24 22:00 09/27/24 21:01
Atorvastatin (Lipitor) 10 Mg Tablet PO 10/21/24 21:59 10 mg
HS SALAS Administration
Dextrose 12.5 grams 09/19/24 12:21 09/21/24 12:07
Dextrose 50% (0.5 Grams/Ml) 50 Ml Syringe IV 10/17/24 12:20 12.5 grams
[id number] PRN Administration
BLOOD GLUCOSE < 70
Fluoxetine HCl 40 mg 09/26/24 08:00 09/27/24 09:00
Fluoxetine 20 Mg Capsule PO 10/24/24 07:59 40 mg
DAILY SALAS Administration
Glucagon 1 mg 09/19/24 12:21
Glucagon 1 Mg Vial IM 10/17/24 12:20
PRN PRN
hypoglycemia
Protocol
Heparin Sodium 7,400 units 09/27/24 18:56
Heparin 80 Units/Kg Iv Rebolus IV 10/25/24 18:55
PRN PRN
PTT < OR = 64 seconds
Heparin Sodium 3,700 units 09/27/24 18:57
Heparin 40 Units/Kg Iv Rebolus IV 10/25/24 18:56
PRN PRN
PTT = 64.1 to 72.9 seconds
Hydralazine HCl 10 mg 09/27/24 13:14
Hydralazine 20 Mg/Ml Vial IV 10/25/24 13:13
Q6HPRN PRN
sbp> 170
Insulin Glargine 22 units/ 0.22 mls @ 0 mls/hr 09/27/24 08:08
Device SC 10/24/24 07:52
DAILY SALAS
As Directed
Heparin Sodium 25,000 units in 250 mls @ 0 mls/hr 09/27/24 18:45 09/27/24 20:06
Heparin 40729 Units/250 Ml IV 250 mls
PER PROTOCOL SALAS Administration
Protocol
Per Protocol
Insulin Aspart 0 units 09/23/24 07:30 09/27/24 16:42
Insulin Aspart Low Resistance 300 Units/3 Ml Pen.Injctr SC 10/21/24 07:29 Not Given
AC SALAS
Protocol
Insulin Aspart 10 units 09/27/24 11:30 09/27/24 16:43
Insulin Aspart (Novolog) 100 Units/Ml 3 Ml Flexpen SC 10/25/24 11:29 10 units
AC SALAS Administration
Levothyroxine Sodium 125 mcg 09/23/24 06:00 09/28/24 06:01
Levothyroxine 125 Mcg Tablet PO 10/21/24 05:59 125 mcg
DAILY @ 0600 SALAS Administration
Lidocaine 1 patch 09/22/24 22:00 09/27/24 21:01
Lidocaine 4% Topical Patch TOPICAL 10/20/24 21:59 1 patch
HS SALAS Administration
Protocol
Miconazole Nitrate 0 applic 09/19/24 20:00 09/27/24 21:01
Miconazole Powder Bottle TOPICAL 10/17/24 19:59 1 applic
BID SALAS Administration
Morphine Sulfate 2 mg 09/27/24 11:54 09/27/24 14:07
Morphine 2 Mg/Ml Syringe IV 10/11/24 11:53 2 mg
Q4HPRN PRN Administration
severe pain
Pantoprazole Sodium 40 mg 09/23/24 08:00 09/27/24 09:00
Pantoprazole 40 Mg Delayed Release Tablet PO 10/21/24 07:59 40 mg
DAILY SALAS Administration
Patch Removal 0 patch 09/22/24 10:00 09/27/24 09:00
Remove Lidocaine Patch REMOVE 10/20/24 09:59 1 patch
DAILY@1000 SALAS Administration
Polyethylene Glycol 17 grams 09/18/24 08:00 09/27/24 09:00
Polyethylene Glycol Powder 17 Grams Packet TUBE 10/16/24 07:59 17 grams
DAILY SALAS Administration
Risperidone 0.5 mg 09/21/24 18:02 09/26/24 00:53
Risperidone 0.5 Mg Orally Disintegrating Tablet PO 10/19/24 18:01 0.5 mg
Q8HPRN PRN Administration
agitation
Risperidone 0.5 mg 09/23/24 22:00 09/27/24 21:01
Risperidone 0.5 Mg Orally Disintegrating Tablet PO 10/21/24 21:59 0.5 mg
HS SALAS Administration
Fluticasone/Salmeterol 2 puff 09/21/24 14:00 09/28/24 07:16
Advair Hfa 115/21 Inhaler INH 10/19/24 13:59 2 puff
R BID SALAS Administration
Protocol
Sodium Chloride 0 flush 09/17/24 22:00
Sodium Chloride 0.9% (Flush) Syringe IV 10/15/24 21:59
PER PROTOCOL SALAS
Trazodone HCl 50 mg 09/25/24 22:00 09/27/24 21:01
Trazodone 50 Mg Tablet PO 10/23/24 21:59 50 mg
HS SALAS Administration
Review of Systems
-
Unable to obtain full review of systems at this time due to: Dementia
Physical Exam
-
General: No Apparent Distress, Comfortable and Other (Down's facies); Negative Respiratory Distress
HEENT: Negative Jaundice
Cardiology: S1 and S2
Pulmonary: Clear
GI: Soft
Musculoskeletal: Edema, Right Upper Extrem, Edema. Left Upper Extrem, Edema, Right Lower Extrem and Edema, Left Lower Extrem
Psych: Calm
Labs
Lab Results
WBC 8.5 10^3/uL (4.8-10.8) 09/27/24:25
RBC 4.06 10^6/uL (4.20-5.40) L 09/27/24:
Hgb 12.5 g/dL (12.0-16.0) 09/27/24:
Hct 38.3 % (37.0-47.0) 09/27/24:
MCV 94.3 fL (81.0-99.0) 09/27/24:
MCH 30.8 pg (27.0-31.0) 09/27/24:
MCHC 32.6 g/dL (33.0-37.0) L 09/27/24:
RDW 15.6 % (11.5-14.5) H 09/27/24:
Plt Count 287 10^3/uL (130-400) 09/27/24:
MPV 11.4 fL (7.4-10.4) H 09/27/24:25
Abs Immat Gran (auto) 0.0 10^3/uL (0-0.05) 09/26/24 07:49
Absolute Neuts (auto) 4.4 10^3/uL (1.4-6.5) 09/26/24 07:49
Absolute Lymphs (auto) 1.5 10^3/uL (1.2-3.4) 09/26/24 07:49
Absolute Monos (auto) 0.6 10^3/uL (0.1-0.6) 09/26/24 07:49
Absolute Eos (auto) 0.2 10^3/uL (0-0.7) 09/26/24 07:49
Absolute Basos (auto) 0.0 10^3/uL (0-0.2) 09/26/24 07:49
Immature Gran % 0.6 % (0-0.5) H 09/26/24 07:49
Neutrophils % 65.3 % (42.2-75.2) 09/26/24 07:49
Lymphocytes % 21.9 % (20.5-51.1) 09/26/24 07:49
Monocytes % 8.8 % (1.7-9.3) 09/26/24 07:49
Eosinophils % 3.1 % (0-6) 09/26/24 07:49
Basophils % 0.3 % (0-2) 09/26/24 07:49
Creatinine 0.8 mg/dL (0.6-1.0) 09/27/24 05:34
Vital Signs
Vital Signs
Temp Pulse Resp BP Pulse Ox
98.5 F 102 20 147/98 98
09/28/24 07:20 09/28/24 07:20 09/28/24 07:20 09/28/24 07:20 09/28/24 07:20
--- NOTE | 2024-09-28 07:46 | PN.DE.MGMTRT ---
Insulin Management
- -
09/28/2024: Diabetes Management Follow up
Patient admitted 09/17 with acute respiratory distress. PMH: Down syndrome, type 2 diabetes, who reportedly had a choking episode on a hot dog with possible aspiration of oral contents. 09/17 in the ED patient was unresponsive requiring intubation-
mechanical ventilation due to Acute hypoxic hypercapnic respiratory failure 2/2 aspiration pneumonia/sepsis. Prior to admission, was taking Lantus 30 units daily, Lispro 12 units AC and Metformin 1000mg BID. A1C 7%, Cr 0.7, eGFR >60.
Patient is sleeping, not awakened. Steroids stopped on 09/21.
09/27 fasting glucose 253, premeal range 144 to 128, required 1-2 units of additional corrective insulin. HS glucose was 115.
09/28 Fasting glucose 185 V. AM Lantus was ordered to be increased to 22 units; due to HS glucose 115 will keep lantus @ 20 units and AC NovoLog 10 units with low corrective insulin.(was taking Lantus 30 units and Lispro 12 units TID).
Discussed with nurse.
Will follow.
Diabetes History
- -
Type of Diabetes: 2 requiring insulin
Pre-Admission Diabetes Regimen
Lab Results
Hemoglobin A1c 7.0 % (4.0-5.6) H 09/18/24 12:18
Insulin Pump Settings
IP Diabetes Regimen
09/27/24 09/27/24 09/27/24
07:46 11:52 16:41
POC Glucose 253 H 144 H 128 H
09/27/24 09/28/24
21:02 07:35
POC Glucose 115 H 185 H
Meal type: Dinner
Meal type: Lunch
Meal type: Breakfast
Amount consumed: 100%
Amount consumed: 50%
Amount consumed: 0
Patient Education
[2024-09-28 07:48] LABS: Hematocrit 37.2 % (37.0-47.0); Hemoglobin 11.8 g/dL (12.0-16.0); Mean Corp Hgb Conc. 31.7 g/dL (33.0-37.0); Mean Corpuscular Volume 94.4 fL (81.0-99.0); Nucleated Red Blood Cells % 0 %; Platelet Count 274 10^3/uL (130-400); Red Cell Dist. Width 15.5 % (11.5-14.5)
[2024-09-28] MEDS: PROZAC 40 MG PO (08:05)
[2024-09-28] MEDS: MIRALAX 17 GRAMS TUBE (08:05)
[2024-09-28] MEDS: PROTONIX 40 MG PO (08:05)
[2024-09-28] MEDS: NOVOLOG FLEXPEN 10 UNITS SC ×2 (08:06→12:19)
[2024-09-28] MEDS: NOVOLOG FLEXPEN-LOW RESISTANCE 1 UNITS SC (08:06)
[2024-09-28] MEDS: DESENEX/MITRAZOL/ZEASORB 1 APPLIC TOPICAL (08:07)
[2024-09-28 08:10] LABS: Troponin I 0.049 ng/ml
[2024-09-28] MEDS: LANTUS 0.2 UNITS SC (08:15)
[2024-09-28 08:32] LABS: Blood Urea Nitrogen 18 mg/dl (7-17); Calcium 8.7 mg/dl (8.4-10.2); Carbon Dioxide 28 mmol/L (22-30); Chloride 110 mmol/L (98-107); Estimated Creatinine Clearance 72 ml/min; Glucose 196 mg/dl (70-99); Magnesium 2.0 mg/dl (1.6-2.3); Potassium 3.9 mmol/L (3.5-5.1); Sodium 141 mmol/L (135-145); eGFR > 60.00
--- NOTE | 2024-09-28 09:45 | WOUNDNOTE ---
WO RN note: Patient seen during prevention rounds. Buttocks skin red/chafed skin about the same. Miconazole powder and Calazime ointment applied. Patient stood with walker and supervision during skin care. Nurse manager intel Ileana and [facility] RN assist
Maris assisting with care. Air chair cushion given. Skin on heels intact, blanchable red. Protective foam dressings changed. Patient sitting in recliner chair. Patient reports a good appetitie. Discussed with RN Hill who plans to apply an air
overlay mattress (patient has a Centrella Pro bed) if patent not discharged today.
--- NOTE | 2024-09-28 09:45 | W.PN.HOSP.TC ---
Today's Communication/Plan
-
Back to Eliquis. Oxygen. Discharge planning
Assessment / Plan
Assessment / Plan
Physical exam:
General: Chronically ill. Obese
HEENT: Normocephalic, Atraumatic and Moist Mucous Membranes
Respiratory: Bilateral crackles, no wheezes or rhonchi
Cardiac: Regular Rhythm and S1/S2
GI: Soft, Nontender and Nondistended
Musculoskeletal: No Clubbing, No Cyanosis. Bruises on both arms. Bilateral trace lower extremity edema
Neuro: Awake, Alert, oriented, generalized weakness, no neurological deficits
Psych: Calm, cognitive deficits present
A/P:
Acute hypoxic respiratory failure:
Appears to be multifactorial likely aspiration pneumonia, volume overload, suspected OHS/AMBER, PE, obesity.
At some point patient was intubated and self extubated.
On supplemental oxygen-currently down to 2 L of oxygen. Wean as tolerated
Discussed with brother at bedside prior
Discussed with attending RN
PT OT eval
Home oxygen assessment
Medically cleared for discharge-->merchandising execution manager to start working on discharge disposition
Acute PE/Right IJ DVT/ Superficial RUE thrombosis:
Switch to heparin drip last evening
Hematology consulted they are okay to switch back to Eliquis
Will transition to Eliquis 10 mg for 7 days and then 5 mg afterwards. Hematology recommends 3-months of anticoagulation.
RUE midline has been discontinued
Acute diastolic CHF:
IV Lasix given prior.
Will use diuresis as needed moving forward.
Chest x-ray today showed significant improvement correlating with some degree of volume overload.
BNP trended down
Suspect change in mental status admission likely secondary to toxic metabolic encephalopathy and owning:
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 Per brother she also have cognitive impairment/intellectual disability
Psychiatry evaluated the patient-will defer to psychiatry in terms of antidepressants, antipsychotics, sleeping aids. Psychiatry has restarted all or most of her psych medications.
She is currently on one to one observation
She typically comes back in restraints at nighttime
Aspiration pneumonia:
Completed course of antibiotics per ID
ID consult appreciated
Speech therapy following-on IDDSI level 5
GI evaluated the patient and felt there was no need for further GI intervention unless significant pathology on images. Plan on doing esophagogram today (needs to be n.p.o. by radiology).
NSVT:
No recurrence so far but continue cardiac monitoring
Keep potassium above 4 and magnesium above 2
Reviewed echocardiogram, normal EF.
QTc prolongation:
Avoid QTc prolonging medications
Cardiac monitoring
Reviewed serial twelve-lead EKG
Hypokalemia:
Replete and trend
Hypomagnesemia:
Replete and trend
Septic shock secondary to aspiration pneumonia
Resolved
Lactic acidosis
Resolved
Transient bradycardia
Resolved
Acute metabolic acidosis
Resolved
Diabetes mellitus
A1c 7
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
Continue insulin sliding scale
Restarted long-acting insulin since patient tolerating diet but on hold due to n.p.o. for procedure
Hold metformin
History of asthma
Does not appear to be an asthma exacerbation
Hyperlipidemia
Restarted statins
Hypothyroidism
Restarted thyroid replacement
Morbid obesity secondary to excess calories
Monitor
GERD
Continue oral PPI
DVT prophylaxis
Lovenox SQ
CODE STATUS
Full code
Time spent 35-minutes
Anticipated Discharge: Today
Subjective/Interval History
-
Date of Service: September 28, 2024
Patient feels well today. No chest pain or shortness of breath.
Objective Data
-
Labs:
Laboratory Results
09/28/24 09/28/24 09/28/24
01:32 07:31 10:00
WBC 7.7
Hgb 11.8 L
Hct 37.2
Plt Count 274
APTT > 200 H* Pending
Sodium 141
Potassium 3.9
Chloride 110 H
Carbon Dioxide 28
BUN 18 H
Creatinine 0.8
Glucose 196 H
Calcium 8.7
Vital Signs:
Vital Signs
Temp Pulse Resp BP Pulse Ox
98.5 F 102 20 147/98 92
09/28/24 07:20 09/28/24 07:20 09/28/24 07:20 09/28/24 07:20 09/28/24 08:23
I&O
09/27/24 09/28/24 09/29/24
06:59 06:59 06:59
Intake Total 600 / 600 1620 / 1620
Output Total 2900 / 2900
Balance -2300 / -2300 1620 / 1620
[2024-09-28] MEDS: REMOVE LIDOCAINE PATCH 1 PATCH REMOVE (09:55)
[2024-09-28 10:21] LABS: APTT 94.0 Sec (23.4-35.0)
--- NOTE | 2024-09-28 11:07 | W.DCSUMMARY ---
Discharge Summary
Discharge Data
Date of Admission: 09/17/24
Date of Discharge: 09/28/24
Total time spent discharging patient (in min): 35
-
Pending Results: No
Hospital Course
Patient is 69 years old female with history of intellectual disability, obesity, hyperlipidemia, asthma, hypothyroidism, presented to the hospital after choking from eating a hot dog. Patient initially was admitted to ICU and on mechanical
ventilation. Critical care/pulmonary consulted. Patient was found to have an aspiration pneumonia. She was treated with IV antibiotics completed course as inpatient. She self extubated. She was found to be multiple issues concerning her
hypoxemia including aspiration pneumonia, volume overload/CHF, obesity hypoventilation syndrome, possible obstructive sleep apnea, and PE all of which can account for her hypoxemia. She required initially significant amount of oxygen but we have
been able to taper down to 2 L of oxygen upon discharge. She was treated with IV heparin drip and switched to oral Eliquis and hematology consulted and recommended 3-month course of anticoagulation. She was also seen by psychiatry and diabetic
nurse practitioner. After prolonged hospital stay patient has been deemed relatively stable to be able to be transferred to facility for further rehab. She will be discharged in relatively stable condition today.
Discharge duration: 35 minutes
Discharge Plan
-
Patient Disposition: Snf/SNF
Discharge Diagnosis/Procedures: Acute hypoxic respiratory failure. Septic shock, resolved. DVT right internal jugular vein. Acute pulmonary embolism. Acute diastolic congestive heart failure. Aspiration pneumonia. Acute toxic metabolic
encephalopathy.
Diet: Diabetic, Carb Controlled
Activity: As tolerated
Blood Work: Please PCP to order CBC, BMP within 1 week
Specialty Instructions: Weigh Daily- Call MD for wt gain/loss 3 lbs overnight/5 lbs in 1 week
Referrals:
Primary care provider [Other] - in less than 1 week
Sonja Faustin DO [Active, Gastroenterology]
Referral Note: if continued with any difficulty with swallowing or family wishes to proceed with testing for esophageal compression call office to arrange follow up
Milton Plascencia MD [Active, Pulmonary Medicine] - in two to four weeks
UNKNOWN - PT DOES,NOT KNOW [Family Provider]
Additional Discharge Medication Instructions: Stop aspirin. Start Eliquis 10 mg twice a day for 7 days and then 5 mg twice a day for a total of 3 months.
Prescriptions:
New
acetaminophen 325 mg Tablet
650 mg PO Q6HPRN PRN (Reason: mild pain/ fever>100.5F) Qty: 20 0RF
Eliquis DVT-PE Treat 30D Start 5 mg (74 tabs) tablets,dose pack
See Rx Instructions .ROUTE .COMPLEX Qty: 74 0RF
Rx Instructions:
orally per package directions
Continued
insulin lispro 100 unit/mL Insulin Pen
12 unit SC TID
Rx Instructions:
Inject 12 unit subcutaneously before meals for DM
fluoxetine 40 mg Capsule
40 mg PO DAILY
Rx Instructions:
Give 1 capsule by mouth one time a day for depression.
fluticasone propion-salmeterol [Wixela Inhub] 250-50 mcg/dose Blister With Device
1 inh INHALATION BID
Rx Instructions:
1 inhalation orally two times a day for asthma rinse mouth with water afterwords.
trazodone 50 mg Tablet
50 mg PO HS
Rx Instructions:
Give 1 tablet by mouth at bedtime for depression
fluvastatin 40 mg Capsule
40 mg PO HS
Rx Instructions:
Give 1 capsule by mouth at bedtime for HLD.
levothyroxine 125 mcg Tablet
125 mcg PO DAILY
Rx Instructions:
Give 1 tablet by mouth one time a day for low thyroid hormone
ezetimibe 10 mg Tablet
10 mg PO DAILY
Rx Instructions:
Give 10mg by mouth at bedtime for HLD
insulin glargine [Lantus Solostar U-100 Insulin] 100 unit/mL (3 mL) Insulin Pen
30 unit SC DAILY
Rx Instructions:
Inject 30 unit subcutaneously one time a day for DM
omeprazole 20 mg Tablet,Delayed Release (Dr/Ec)
20 mg PO DAILY
Rx Instructions:
Give 1 tablet by mouth one time a day for gerd.
Changed
aripiprazole 2 mg Tablet
0.5 mg PO HS Qty: 0 0RF
Rx Instructions:
Give 1 tablet by mouth at bedtime for mental health.
Discontinued
buspirone 5 mg Tablet
5 mg PO TID
Rx Instructions:
Give 5mg by mouth every 8 hours for anxiety
metformin 500 mg Tablet
500 mg PO BID
Rx Instructions:
Give 1 tablet by mouth two times daily for DM.
cetirizine 10 mg Tablet
10 mg PO DAILY
Rx Instructions:
Give 1 tablet by mouth one time a day for allergy
etodolac 400 mg Tablet
400 mg PO DAILY
Rx Instructions:
Give 1 tablet by mouth one time a day for pain with food.
aspirin 81 mg Capsule
81 mg PO DAILY
Rx Instructions:
Give 81mg by mouth one time a day for prophylaxis.
Discharge Orders:
Discharge Patient (As Directed); Ordered 09/28/24
Ordered By: Alonso Elizondo
Discharge Date and Time
Print Language: SAUDI ARABIAN
[2024-09-28 11:15] VITALS: BP 99/59
[2024-09-28] MEDS: ELIQUIS 10 MG PO (11:15)
--- NOTE | 2024-09-28 11:21 | CM ---
Addendum entered by Arlette Hoff 09/28/24 12:37:
Ambulance hand picker confirmed for 2PM today. Pt's brother notified.
Original Note:
CM spoke with Eva's brother regarding discharge back to [facility]. [facility] reviewed with Kevyn, pt's brother to discuss discharge. He is agreeable to discharge today; Ambulance transport being requested for 2PM today for return to [facility].
[facility] Report:[phone]
[facility]
[2024-09-28 11:49] LABS: Glucose - Point of Care 222 mg/dl (70-99)
--- NOTE | 2024-09-28 11:53 | W.PN.UPDATE ---
Update Note
Progress Note Update
patient seen chart reviewed. spoke with nursing and witth dr duncan. ms price is from a psych standpoint looking much better. she is pleasant and interactive. she did tell me she is not feeling as well as she wishes physically. still trouble w
respiratory issues. PE in addition to infection. (she did not verbalize her illness quite this way). despite her feeling that she was not physically much better she did appear to me to be in much less distress. she has not required a prn for
agitation since 09/26. she is no longer on one to one. she is still getting risperdal at [facility]. if she has another good day will dc this as well. will see her in am.
[2024-09-28 12:05] VITALS: BP 118/83
[2024-09-28] MEDS: NOVOLOG FLEXPEN-LOW RESISTANCE 2 UNITS SC (12:19)
== END 2024-09-28 14:33 | DRG 871 ==
LOC: 2 NORTH 19:52
PROVIDERS: Emergency Medicine; Internal Medicine; Internal Medicine Critical Care Medicine; Nurse Practitioner Family; Radiology Diagnostic Radiology; ADMITTING PHYSICIAN Internal Medicine; ATTENDING PHYSICIAN Hospitalist; CONSULT PHYSICIAN Internal Medicine; CONSULT PHYSICIAN Internal Medicine Cardiovascular Disease; CONSULT PHYSICIAN Internal Medicine Critical Care Medicine; CONSULT PHYSICIAN Internal Medicine Infectious Disease; CONSULT PHYSICIAN Psychiatry & Neurology Psychiatry; EMERGENCY PHYSICIAN Emergency Medicine; OTHER PHYSICIAN Internal Medicine Hematology & Oncology
PROC: 0BH17EZ Insertion of Endotracheal Airway into Trachea, Via Natural or Artificial Opening (ICD-10-PCS; 2024-09-17)
PROC: 5A1945Z Respiratory Ventilation, 24-96 Consecutive Hours (ICD-10-PCS; 2024-09-17)
PROC: 02HV33Z Insertion of Infusion Device into Superior Vena Cava, Percutaneous Approach (ICD-10-PCS; 2024-09-18)
PROC: 5A09357 Assistance with Respiratory Ventilation, Less than 24 Consecutive Hours, Continuous Positive Airway Pressure (ICD-10-PCS; 2024-09-19)
DX: A41.9 Sepsis, unspecified organism (principal); G92.8 Other toxic encephalopathy; I26.99 Other pulmonary embolism without acute cor pulmonale; J96.01 Acute respiratory failure with hypoxia; R65.21 Severe sepsis with septic shock; J96.02 Acute respiratory failure with hypercapnia; I50.31 Acute diastolic (congestive) heart failure; J69.0 Pneumonitis due to inhalation of food and vomit; I82.C11 Acute embolism and thrombosis of right internal jugular vein; E66.2 Morbid (severe) obesity with alveolar hypoventilation; Z68.41 Body mass index [BMI] 40.0-44.9, adult; I47.20 Ventricular tachycardia, unspecified; I82.613 Acute embolism and thrombosis of superficial veins of upper extremity, bilateral; F05 Delirium due to known physiological condition; E87.21 Acute metabolic acidosis; F79 Unspecified intellectual disabilities; I45.10 Unspecified right bundle-branch block; T17.9 Foreign body in respiratory tract, part unspecified; W44.F Objects of natural or organic material entering into or through a natural orifice; R13.10 Dysphagia, unspecified; R00.1 Bradycardia, unspecified; E03.9 Hypothyroidism, unspecified; E11.65 Type 2 diabetes mellitus with hyperglycemia; E87.6 Hypokalemia; E83.42 Hypomagnesemia; J98.4 Other disorders of lung; J45.909 Unspecified asthma, uncomplicated; I49.1 Atrial premature depolarization; F31.9 Bipolar disorder, unspecified; F63.3 Trichotillomania; K21.9 Gastro-esophageal reflux disease without esophagitis; Z79.82 Long term (current) use of aspirin; Z79.84 Long term (current) use of oral hypoglycemic drugs; Z79.4 Long term (current) use of insulin
CPT/HCPCS: 31500; 36556; 36600; 43752; 70450; 71045; 71275; 74220; 76937; 80048; 80053; 81003; 81015; 82805; 82947; 82962; 83036; 83605; 83735; 83880; 84100; 84132; 84439; 84443; 84478; 84484; 85025; 85027; 85610; 85730; 87040; 87086; 87449; 87641; 87899; 92526; 92610; 93005; 93306; 93970; 94002; 94003; 94640; 94660; 96365; 96366; 96367; 96375; 97163; 97167; 97530; 97535; 99291; C1751; J2358; Q9967

== ENCOUNTER 2024-10-04 21:36 | Inpatient (IN) | payer MEDICARE, SELFPAY ==
[2024-10-04] VITALS (7 sets, daily range): BP systolic 97–118; BP diastolic 50–69; BMI 45.4; BMI 43.7
--- NOTE | 2024-10-04 12:16 | ED.GENMED ---
History of Present Illness
<DAKSHA Martinez - Last Filed: 10/08/24 20:13>
General
Chief Complaint: Generalized Pain
Source: patient
Exam Limitations: none
Time Seen by Provider: 10/04/24 11:45
Nursing documentation reviewed up to this point in time: agreed with
History of Present Illness
History of Present Illness:
Patient is a 69-year-old female from [facility] sent for evaluation. Patient as per EMS has been complaining of right arm/elbow shoulder pain for the past several days. No fall injury. She is able to give history. She denies any
associated chest pain shortness of breath she denies any fever chills. She does not feel unwell. She denies any trauma.
I did speak with nursing facility (nurse ) at [facility] who does report that patient had no trauma but started to complain of right arm pain today. She has been at [facility] since August.
Past History
<DAKSHA Martinez - Last Filed: 10/08/24 20:13>
Past History
ED Past Medical History: Other
ED Past Surgical History: Other
Social History
Tobacco: Other
Alcohol: Other
Drug: Other
Personal: Single
Living: penitentiary
Employment: Not employed
Family History
Family History: Unable to obtain
Phy Exam
<DAKSHA Martinez - Last Filed: 10/08/24 20:13>
General Physical Exam
General Presentation: no apparent distress
General age: appears stated age
General Skin: warm and dry
General Habitus: elderly
General Mental: alert
Neurological Exam
Neurological Exam: alert and oriented x3
Musculoskeletal Exam
Musculoskeletal Exam: other (rue with strong pulses + mild tenderness to prox humerus however able to range shoulder, + elbow however with no erythema on exam but very tenderness to palpation and painful with ROM )
Skin Exam
Skin Exam: normal color and warm/dry
Psychiatric Exam
Psychiatric Exam: normal mood/affect
Course
<DAKSHA Martinez - Last Filed: 10/08/24 20:13>
Orders/Labs/Results
Orders:
Orders
10/04/24 Breakfast
1800 calorie (15 carb) Diabetic
At Your Request: Full Participation
10/04/24 12:17
CR Shoulder - Right Min 2 View Urgent
Reason For Exam: pain
Elbow, 3 View, Right [CR Elbow - Right Min 3 Views] Urgent
Comment:
Reason For Exam: pain
10/04/24 12:48
C-Reactive Protein Urgent
Comment: ADD ON
Complete Blood Count/With Diff Urgent
Comprehensive Metabolic Panel Urgent
10/04/24 15:11
Upper Ext Right wo Contrast CT [CT Upper Ext W/o Iv Cont Rt] Urgent
Comment:
Reason For Exam: right elbow pain/swelling
10/04/24 17:08
Sling Right-Treatment ONCE
10/04/24 20:36
Add On- LAB Urgent
Tests Added?: esr/crp
10/04/24 20:56
Lactic Acid Urgent
Blood Culture Q30M
TAYE Source: Blood/Venous
Specimen Description:
10/04/24 20:58
Erythrocyte Sed Rate Urgent
10/04/24 21:08
Admit/Transfer Patient As Directed
Co-Sign Provider:
Level of Care: Inpatient admission
Assign to:: Medical/Surgical
Physician / Group: jumana
Diagnosis: fever
Reason for Hospitalization: fever
Expected length of stay greater than two midnights?: Yes
ELOS- Estimated Length of Stay in days: 3
I certify the patient meets the requirements for IP care: Yes
10/04/24 21:09
Code Status As Directed
Resuscitation Status: Full Code
PRN Pain Medication Management As Directed
May give lesser potent ordered pain med per pt: Yes
preference::
Protocol:: Medication orders for pain may be administered in a
manner that supports deferring to patient preference
when the pt is:
- Requesting an ordered lesser potent pain medication.
Least to most potent pain medications are defined
as: acetaminophen < NSAID < tramadol < opioids
(morphine, oxycodone, hydromorphone).
- Requesting a lesser dose of the same medication IF
ORDERED.
- Requesting a less intrusive route of administration
if both routes are prescribed by the provider (PO <
IV).
10/04/24 21:13
Blood Culture Q30M
TAYE Source: Blood/Venous
Specimen Description:
10/04/24 21:18
Urine Culture Reflexed from UA [Urinalysis Reflex To Culture] Stat
Date Specimen was Collected: 10/05/24
Time Specimen was Collected: 18:40
10/04/24 22:22
Acetaminophen [Tylenol] 650 mg PO Q4HPRN PRN
Bisacodyl [Dulcolax] 10 mg RECTAL [id number] PRN
Dextrose 50%-Water [Dextrose 50% Syringe] 12.5 grams IV [id number] PRN
Docusate W/Senna [Senokot-S] 1 tablet PO BIDPRN PRN
Glucagon [GlucaGen] 1 mg IM PRN PRN
Polyethylene Glycol Powder [Miralax] 17 grams PO DAILYPRN PRN
Trazodone [Desyrel] 50 mg PO HS
10/04/24 22:22
Activity As Directed
Activity Level: As Tolerated
Bedside Glucose Monitoring As Directed
Frequency: AC&HS
Additional Instructions:: Change to q6h if pt on TPN, tube feeding or not eating
Vital Signs As Directed
Frequency: Per unit guidelines
O2 Therapy [RESP] Routine
Titrate/Wean O2 to maintain O2 sat greater than (%): 95
Ot Eval And Treat Routine
Pt Eval And Treat Routine
Activity Level: As Tolerated
10/05/24 06:00
Levothyroxine [Synthroid] 125 mcg PO DAILY @ 0600
10/05/24 07:27
Complete Blood Count/No Diff IN AM
10/05/24 07:30
Insulin Aspart Corrective Low [Novolog Flexpen-Low Resistance] See Protocol SC AC
10/05/24 08:00
Apixaban [Eliquis] 5 mg PO BID
Ezetimibe [Zetia] 10 mg PO DAILY
Fluoxetine HCl [Prozac] 40 mg PO DAILY
Fluticasone/Salmeterol 115/21 [Advair Hfa 115/21 Mcg Inhaler] 2 puff INH R BID
Insulin Aspart Pen [Novolog Flexpen] 8 units SC TID
Pantoprazole [Protonix] 40 mg PO DAILY
insulin glargine [Lantus Solostar U-100 Insulin] 20 unit SC DAILY
10/05/24 22:00
Atorvastatin [Lipitor] 10 mg PO HS
10/06/24 07:11
Complete Blood Count/No Diff IN AM
10/07/24 07:39
Complete Blood Count/No Diff IN AM
Abnormal Lab Results
10/04/24 10/04/24
12:48 20:58
WBC 12.6 H 10^3/uL
(4.8-10.8)
RBC 3.82 L 10^6/uL
(4.20-5.40)
Hgb 11.5 L g/dL
(12.0-16.0)
Hct 36.2 L %
(37.0-47.0)
MCHC 31.8 L g/dL
(33.0-37.0)
RDW 15.6 H %
(11.5-14.5)
MPV 11.4 H fL
(7.4-10.4)
Absolute Neuts (auto) 10.6 H 10^3/uL
(1.4-6.5)
Absolute Lymphs (auto) 0.9 L 10^3/uL
(1.2-3.4)
Absolute Monos (auto) 1.1 H 10^3/uL
(0.1-0.6)
Neutrophils % 84.0 H %
(42.2-75.2)
Lymphocytes % 6.8 L %
(20.5-51.1)
ESR 87 H mm/hour
(0-20)
Chloride 110 H mmol/L
(98-107)
Glucose 180 H mg/dl
(70-99)
C-Reactive Protein 50.30 H mg/L
(0.0-10.00)
10/04/24 12:48
10/04/24 12:48
Vital Signs
Initial and Last Documented VS:
Initial Vital Signs
Resp BP
17 106/69
10/04/24 11:49 10/04/24 11:49
Last Documented Vital Signs
Temp Pulse Resp BP Pulse Ox
98.0 F 75 16 116/50 94
10/07/24 19:05 10/07/24 19:05 10/07/24 19:05 10/07/24 19:05 10/07/24 19:05
Biomass Technician consulted with Physician
Biomass Technician consulted with physician?: Yes
Name of Physician Consulted: Angel
<Heidi Ortiz MD - Last Filed: 10/04/24 17:10>
Orders/Labs/Results
Orders:
Orders
10/04/24 Breakfast
1800 calorie (15 carb) Diabetic
At Your Request: Full Participation
10/04/24 12:17
CR Shoulder - Right Min 2 View Urgent
Reason For Exam: pain
Elbow, 3 View, Right [CR Elbow - Right Min 3 Views] Urgent
Comment:
Reason For Exam: pain
10/04/24 12:48
C-Reactive Protein Urgent
Comment: ADD ON
Complete Blood Count/With Diff Urgent
Comprehensive Metabolic Panel Urgent
10/04/24 15:11
Upper Ext Right wo Contrast CT [CT Upper Ext W/o Iv Cont Rt] Urgent
Comment:
Reason For Exam: right elbow pain/swelling
10/04/24 17:08
Sling Right-Treatment ONCE
10/04/24 20:36
Add On- LAB Urgent
Tests Added?: esr/crp
10/04/24 20:56
Lactic Acid Urgent
Blood Culture Q30M
TAYE Source: Blood/Venous
Specimen Description:
10/04/24 20:58
Erythrocyte Sed Rate Urgent
10/04/24 21:08
Admit/Transfer Patient As Directed
Co-Sign Provider:
Level of Care: Inpatient admission
Assign to:: Medical/Surgical
Physician / Group: jumana
Diagnosis: fever
Reason for Hospitalization: fever
Expected length of stay greater than two midnights?: Yes
ELOS- Estimated Length of Stay in days: 3
I certify the patient meets the requirements for IP care: Yes
10/04/24 21:09
Code Status As Directed
Resuscitation Status: Full Code
PRN Pain Medication Management As Directed
May give lesser potent ordered pain med per pt: Yes
preference::
Protocol:: Medication orders for pain may be administered in a
manner that supports deferring to patient preference
when the pt is:
- Requesting an ordered lesser potent pain medication.
Least to most potent pain medications are defined
as: acetaminophen < NSAID < tramadol < opioids
(morphine, oxycodone, hydromorphone).
- Requesting a lesser dose of the same medication IF
ORDERED.
- Requesting a less intrusive route of administration
if both routes are prescribed by the provider (PO <
IV).
10/04/24 21:13
Blood Culture Q30M
TAYE Source: Blood/Venous
Specimen Description:
10/04/24 21:18
Urine Culture Reflexed from UA [Urinalysis Reflex To Culture] Stat
Date Specimen was Collected: 10/05/24
Time Specimen was Collected: 18:40
10/04/24 22:22
Acetaminophen [Tylenol] 650 mg PO Q4HPRN PRN
Bisacodyl [Dulcolax] 10 mg RECTAL [id number] PRN
Dextrose 50%-Water [Dextrose 50% Syringe] 12.5 grams IV [id number] PRN
Docusate W/Senna [Senokot-S] 1 tablet PO BIDPRN PRN
Glucagon [GlucaGen] 1 mg IM PRN PRN
Polyethylene Glycol Powder [Miralax] 17 grams PO DAILYPRN PRN
Trazodone [Desyrel] 50 mg PO HS
10/04/24 22:22
Activity As Directed
Activity Level: As Tolerated
Bedside Glucose Monitoring As Directed
Frequency: AC&HS
Additional Instructions:: Change to q6h if pt on TPN, tube feeding or not eating
Vital Signs As Directed
Frequency: Per unit guidelines
O2 Therapy [RESP] Routine
Titrate/Wean O2 to maintain O2 sat greater than (%): 95
Ot Eval And Treat Routine
Pt Eval And Treat Routine
Activity Level: As Tolerated
10/05/24 06:00
Levothyroxine [Synthroid] 125 mcg PO DAILY @ 0600
10/05/24 07:27
Complete Blood Count/No Diff IN AM
10/05/24 07:30
Insulin Aspart Corrective Low [Novolog Flexpen-Low Resistance] See Protocol SC AC
10/05/24 08:00
Apixaban [Eliquis] 5 mg PO BID
Ezetimibe [Zetia] 10 mg PO DAILY
Fluoxetine HCl [Prozac] 40 mg PO DAILY
Fluticasone/Salmeterol 115/21 [Advair Hfa 115/21 Mcg Inhaler] 2 puff INH R BID
Insulin Aspart Pen [Novolog Flexpen] 8 units SC TID
Pantoprazole [Protonix] 40 mg PO DAILY
insulin glargine [Lantus Solostar U-100 Insulin] 20 unit SC DAILY
10/05/24 22:00
Atorvastatin [Lipitor] 10 mg PO HS
10/06/24 07:11
Complete Blood Count/No Diff IN AM
10/07/24 07:39
Complete Blood Count/No Diff IN AM
Abnormal Lab Results
10/04/24 10/04/24
12:48 20:58
WBC 12.6 H 10^3/uL
(4.8-10.8)
RBC 3.82 L 10^6/uL
(4.20-5.40)
Hgb 11.5 L g/dL
(12.0-16.0)
Hct 36.2 L %
(37.0-47.0)
MCHC 31.8 L g/dL
(33.0-37.0)
RDW 15.6 H %
(11.5-14.5)
MPV 11.4 H fL
(7.4-10.4)
Absolute Neuts (auto) 10.6 H 10^3/uL
(1.4-6.5)
Absolute Lymphs (auto) 0.9 L 10^3/uL
(1.2-3.4)
Absolute Monos (auto) 1.1 H 10^3/uL
(0.1-0.6)
Neutrophils % 84.0 H %
(42.2-75.2)
Lymphocytes % 6.8 L %
(20.5-51.1)
ESR 87 H mm/hour
(0-20)
Chloride 110 H mmol/L
(98-107)
Glucose 180 H mg/dl
(70-99)
C-Reactive Protein 50.30 H mg/L
(0.0-10.00)
10/04/24 12:48
10/04/24 12:48
Vital Signs
Initial and Last Documented VS:
Initial Vital Signs
Resp BP
17 106/69
10/04/24 11:49 10/04/24 11:49
Last Documented Vital Signs
Temp Pulse Resp BP Pulse Ox
98.0 F 75 16 116/50 94
10/07/24 19:05 10/07/24 19:05 10/07/24 19:05 10/07/24 19:05 10/07/24 19:05
<Rolando Burns, DO - Last Filed: 10/04/24 20:41>
Orders/Labs/Results
Orders:
Orders
10/04/24 Breakfast
1800 calorie (15 carb) Diabetic
At Your Request: Full Participation
10/04/24 12:17
CR Shoulder - Right Min 2 View Urgent
Reason For Exam: pain
Elbow, 3 View, Right [CR Elbow - Right Min 3 Views] Urgent
Comment:
Reason For Exam: pain
10/04/24 12:48
C-Reactive Protein Urgent
Comment: ADD ON
Complete Blood Count/With Diff Urgent
Comprehensive Metabolic Panel Urgent
10/04/24 15:11
Upper Ext Right wo Contrast CT [CT Upper Ext W/o Iv Cont Rt] Urgent
Comment:
Reason For Exam: right elbow pain/swelling
10/04/24 17:08
Sling Right-Treatment ONCE
10/04/24 20:36
Add On- LAB Urgent
Tests Added?: esr/crp
10/04/24 20:56
Lactic Acid Urgent
Blood Culture Q30M
TAYE Source: Blood/Venous
Specimen Description:
10/04/24 20:58
Erythrocyte Sed Rate Urgent
10/04/24 21:08
Admit/Transfer Patient As Directed
Co-Sign Provider:
Level of Care: Inpatient admission
Assign to:: Medical/Surgical
Physician / Group: jumana
Diagnosis: fever
Reason for Hospitalization: fever
Expected length of stay greater than two midnights?: Yes
ELOS- Estimated Length of Stay in days: 3
I certify the patient meets the requirements for IP care: Yes
10/04/24 21:09
Code Status As Directed
Resuscitation Status: Full Code
PRN Pain Medication Management As Directed
May give lesser potent ordered pain med per pt: Yes
preference::
Protocol:: Medication orders for pain may be administered in a
manner that supports deferring to patient preference
when the pt is:
- Requesting an ordered lesser potent pain medication.
Least to most potent pain medications are defined
as: acetaminophen < NSAID < tramadol < opioids
(morphine, oxycodone, hydromorphone).
- Requesting a lesser dose of the same medication IF
ORDERED.
- Requesting a less intrusive route of administration
if both routes are prescribed by the provider (PO <
IV).
10/04/24 21:13
Blood Culture Q30M
TAYE Source: Blood/Venous
Specimen Description:
10/04/24 21:18
Urine Culture Reflexed from UA [Urinalysis Reflex To Culture] Stat
Date Specimen was Collected: 10/05/24
Time Specimen was Collected: 18:40
10/04/24 22:22
Acetaminophen [Tylenol] 650 mg PO Q4HPRN PRN
Bisacodyl [Dulcolax] 10 mg RECTAL [id number] PRN
Dextrose 50%-Water [Dextrose 50% Syringe] 12.5 grams IV [id number] PRN
Docusate W/Senna [Senokot-S] 1 tablet PO BIDPRN PRN
Glucagon [GlucaGen] 1 mg IM PRN PRN
Polyethylene Glycol Powder [Miralax] 17 grams PO DAILYPRN PRN
Trazodone [Desyrel] 50 mg PO HS
10/04/24 22:22
Activity As Directed
Activity Level: As Tolerated
Bedside Glucose Monitoring As Directed
Frequency: AC&HS
Additional Instructions:: Change to q6h if pt on TPN, tube feeding or not eating
Vital Signs As Directed
Frequency: Per unit guidelines
O2 Therapy [RESP] Routine
Titrate/Wean O2 to maintain O2 sat greater than (%): 95
Ot Eval And Treat Routine
Pt Eval And Treat Routine
Activity Level: As Tolerated
10/05/24 06:00
Levothyroxine [Synthroid] 125 mcg PO DAILY @ 0600
10/05/24 07:27
Complete Blood Count/No Diff IN AM
10/05/24 07:30
Insulin Aspart Corrective Low [Novolog Flexpen-Low Resistance] See Protocol SC AC
10/05/24 08:00
Apixaban [Eliquis] 5 mg PO BID
Ezetimibe [Zetia] 10 mg PO DAILY
Fluoxetine HCl [Prozac] 40 mg PO DAILY
Fluticasone/Salmeterol 115/21 [Advair Hfa 115/21 Mcg Inhaler] 2 puff INH R BID
Insulin Aspart Pen [Novolog Flexpen] 8 units SC TID
Pantoprazole [Protonix] 40 mg PO DAILY
insulin glargine [Lantus Solostar U-100 Insulin] 20 unit SC DAILY
10/05/24 22:00
Atorvastatin [Lipitor] 10 mg PO HS
10/06/24 07:11
Complete Blood Count/No Diff IN AM
10/07/24 07:39
Complete Blood Count/No Diff IN AM
Abnormal Lab Results
10/04/24 10/04/24
12:48 20:58
WBC 12.6 H 10^3/uL
(4.8-10.8)
RBC 3.82 L 10^6/uL
(4.20-5.40)
Hgb 11.5 L g/dL
(12.0-16.0)
Hct 36.2 L %
(37.0-47.0)
MCHC 31.8 L g/dL
(33.0-37.0)
RDW 15.6 H %
(11.5-14.5)
MPV 11.4 H fL
(7.4-10.4)
Absolute Neuts (auto) 10.6 H 10^3/uL
(1.4-6.5)
Absolute Lymphs (auto) 0.9 L 10^3/uL
(1.2-3.4)
Absolute Monos (auto) 1.1 H 10^3/uL
(0.1-0.6)
Neutrophils % 84.0 H %
(42.2-75.2)
Lymphocytes % 6.8 L %
(20.5-51.1)
ESR 87 H mm/hour
(0-20)
Chloride 110 H mmol/L
(98-107)
Glucose 180 H mg/dl
(70-99)
C-Reactive Protein 50.30 H mg/L
(0.0-10.00)
10/04/24 12:48
10/04/24 12:48
Vital Signs
Initial and Last Documented VS:
Initial Vital Signs
Resp BP
17 106/69
10/04/24 11:49 10/04/24 11:49
Last Documented Vital Signs
Temp Pulse Resp BP Pulse Ox
98.0 F 75 16 116/50 94
10/07/24 19:05 10/07/24 19:05 10/07/24 19:05 10/07/24 19:05 10/07/24 19:05
<DAKSHA Maritnez - Last Filed: 10/08/24 20:13>
MDM/Problems Addressed
MDM/Problems Addressed:
1515: As documented patient is a 69[facility]-old [facility] for evaluation of right arm pain. Patient denies any fall or trauma. She complains of pain to the right shoulder and right elbow. I did confirm with nursing facility
patient had not have any injury. She presents awake alert she has obvious tenderness mild swelling to the right elbow with no redness temp 99.0 white count 12.6.
Mildly tender to proximal shoulder however improved range of motion compared to the elbow. Patient is nontoxic-appearing however with degree of swelling and pain to right elbow will CAT scan. Patient evaluated by ED physician who assumed care of
patient this time.
<DAKSHA Martinez - Last Filed: 10/08/24 20:13>
*Radiology
Radiology exam reviewed: radiology read reviewed
*Pulse Oximetry
SaO2: 99
Nasal Cannula flow liters per minute: 0
Patient hypoxic: no
<Rolando Burns DO - Last Filed: 10/04/24 20:41>
*Critical Care Note
Total Time (30-74mins, 75-104mins- exclusive of procedures): 15
<Rolando Burns DO - Last Filed: 10/04/24 20:41>
Update Note
Update Note:
7P ER attending
8:30 PM mass reevaluated patient by RN patient felt warm 99 7 orally rectal temp requested 100.2 labs noted imaging noted on exam patient special-needs, nontoxic but does feel warm points to her mid humerus no crepitance, no overt cellulitis there
is 1 area of erythema
She is diabetic, not the best historian, is borderline febrile at this point I believe it would be prudent to put her in the hospital we will check cultures, inflammatory markers, there was noted of some abnormality on her humerus film perhaps
osteomyelitis that is brewing? Necrotizing fasciitis comes to mind although I do not see any overt signs of that at this point
ED Attending Note
<DAKSHA Martinez - Last Filed: 10/08/24 20:13>
-
Portions of this chart may have been created with voice recognition software.� Occasional wrong word or��sound alike� substitutions may have occurred due to the inherent limitations of voice recognition software.
<Heidi Ortiz MD - Last Filed: 10/04/24 17:10>
ED Attending Note
ED Attending Note:
69-year-old female presents emergency department with complaints of right upper extremity/elbow pain, no history of trauma, fever, chills, redness, drainage, or other complaints. Of note, patient was recently in the hospital, discharged September 28, on
anticoagulation given diagnosis of PE. On exam, history somewhat limited given patient's intellectual disability. She has good range of motion of hand wrist shoulder. She does complain of discomfort with range of motion of right elbow. There is
no associated specific bony tenderness, deformity, redness, warmth, fluctuance, drainage. It is tender in a nonspecific distribution. Pulses are normal cap refill within normal limits. X-ray difficult to read but no specific fracture noted, CT
report notedEvaluation is limited by patient unintentional motion artifact.
No overt acute fracture or dislocation.
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 There is severe joint space narrowing and large osteophytes, several of which are likely chronically fractured/displaced into the elbow joint recess ease.
No overt joint effusion. Evaluation of additional soft tissue structures such as tendons and ligaments is limited by CT. Grossly, no abnormalities are seen.
Patient will be placed in a sling and allowed to return to her facility. Symptoms may be related to chronic changes. I have at this point very low clinical suspicion for acute infectious process, acute vascular process especially given patient is
anticoagulated and pulses are normal, and no new fracture identified.
Discharge Plan
Departure
Patient Disposition: Admit
Date of Disposition: 10/04/24
Time of Disposition: 17:09
Admit to: Med/Surg
Presentation/result/management discussed w/ accepting MD/DO: Hospitalist
Patient with high blood pressure during this ER visit?: No
Condition: Fair
Covid-19: Not Applicable
Discharge Problem:
Elbow pain, Fever
Interventions
Interventions:
*Risk Screen - Suicide Last Done: 10/04/24 11:55
*General Assessment Last Done: 10/04/24 11:55
*Neglect/Abuse Screening Last Done: 10/04/24 11:55
*ED- Fall Risk Assessment Last Done: 10/04/24 22:20
*ED COVID-19 Vaccine History Last Done: 10/04/24 11:55
*Nursing Disposition Last Done: 10/04/24 22:20
Discharge Date and Time
Discharge Date/Time: 10/04/24 22:15
[2024-10-04 12:56] LABS: Hematocrit 36.2 % (37.0-47.0); Hemoglobin 11.5 g/dL (12.0-16.0); Mean Corp Hgb Conc. 31.8 g/dL (33.0-37.0); Mean Corpuscular Volume 94.8 fL (81.0-99.0); Nucleated Red Blood Cells % 0 %; Platelet Count 326 10^3/uL (130-400); Red Cell Dist. Width 15.6 % (11.5-14.5)
[2024-10-04 13:35] LABS: ALT (SGPT) 16 U/L (0-35); AST (SGOT) 24 U/L (14-36); Albumin 3.5 g/dl (3.5-5.0); Alkaline Phosphatase 89 U/L (38-126); Blood Urea Nitrogen 12 mg/dl (7-17); Calcium 9.4 mg/dl (8.4-10.2); Carbon Dioxide 23 mmol/L (22-30); Chloride 110 mmol/L (98-107); Estimated Creatinine Clearance 74 ml/min; Glucose 180 mg/dl (70-99); Potassium 4.8 mmol/L (3.5-5.1); Sodium 138 mmol/L (135-145); Total Protein 7.0 g/dl (6.3-8.2); eGFR > 60.00
--- NOTE | 2024-10-04 20:44 | HPS.HSE ---
Family Physician
-
Family Physician: Tony Turner
Chief Complaint
-
right elbown
History of Present Illness
69-year-old female with past medical history for chronic respiratory failure, PE, DVT, CHF, hypothyroidism, hyperlipidemia, bipolar, anxiety, intellectual disability, epilepsy presented to us with right elbow pain . Patient stated chills . She had
a low-grade temp at detention. Denied headache, dizzy or syncope. Chest pain or short of breath. Patient denied abdominal pain, nausea, vomiting denied dysuria hematuria.
Upon arrival she was noted to have elevated WBCs. Blood culture sent from ER. Admitting for further manage
. Right arm placed in sling
Medical History
Past Medical History
Past Medical History: Reports Other
Additional Past Medical History:
Pneumonitis
Acute respiratory failure with hypoxia
Asthma
Type 2 diabetes
Anemia
Pulmonary embolism
Right bundle branch block
Diastolic heart failure
DVT
Pleural effusion hypothyroidism
Hyperlipidemia
Bipolar
Depression
Anxiety
Intellectual disabilities
Epilepsy
Hypertension
GERD
Past Surgical History: Reports None
Social History
Tobacco: Non-smoker
Alcohol: None
Drug: None
Living: Senior Living
Family History
Family History: Not pertinent
Allergies / Home Medications
Allergies reflects when Allergies were last updated in the Shelf.
Home Medications with original date entered in the Shelf
Allergy/Medication List:
Allergies
Allergy/AdvReac Type Severity Reaction Status Date / Time
No Known Allergies Allergy Unverified 09/17/24 16:51
Home Medications
ezetimibe 10 mg tablet 10 mg PO DAILY High Cholesterol 09/18/24
fluoxetine 40 mg capsule 40 mg PO DAILY Depression 09/18/24
fluticasone 250 mcg-salmeterol 50 mcg/dose blistr powdr for inhalation (Wixela Inhub) 1 inh inhalation BID Lung/Breathing Issues 09/18/24
fluvastatin 40 mg capsule 40 mg PO HS High Cholesterol 09/18/24
insulin glargine 100 unit/mL (3 mL) subcutaneous pen (Lantus Solostar U-100 Insulin) 30 unit SC DAILY Diabetes 09/18/24
insulin lispro 100 unit/mL subcutaneous pen 12 unit SC TID Diabetes 09/18/24
levothyroxine 125 mcg tablet 125 mcg PO DAILY Thyroid 09/18/24
omeprazole 20 mg tablet,delayed release 20 mg PO DAILY Gastrointestinal Issue 09/18/24
trazodone 50 mg tablet 50 mg PO HS Depression 09/18/24
acetaminophen 325 mg tablet 650 mg (2 x 325 mg) PO Q6HPRN PRN mild pain/ fever>100.5F #20 tabs 09/28/24
apixaban 5 mg (74 tabs) tablets in a dose pack ([place] DVT-PE Treat 30D Start) See Rx Instructions PO .COMPLEX #74 ea 09/28/24
aripiprazole 2 mg tablet 0.5 mg (1/4 x 2 mg) PO HS Mental Health/Anxiety #0 tabs 09/28/24
Review of Systems
-
Constitutional: Reports Fever
EENT: Reports No Symptoms
Respiratory: Reports No Symptoms
Cardiac: Reports No Symptoms
Abdomen/GI: Reports No Symptoms
: Reports No Symptoms
Musculoskeletal: Reports Other (right elbow pain)
Skin: Reports No Symptoms
Neurological: Reports No Symptoms
Endocrine: Reports No Symptoms
Hematologic/Lymphatic: Reports No Symptoms
Psych: Reports No Symptoms
Physical Exam
Vital Signs
Vital Signs
Temp Pulse Resp BP Pulse Ox
100.2 F 69 20 118/52 96
10/04/24 20:38 10/04/24 20:17 10/04/24 20:17 10/04/24 20:17 10/04/24 20:17
Physical Exam
General: Well Developed, Well Nourished and No Apparent Distress
HEENT: NormoCephalic, Moist mucous membranes and Atraumatic
Respiratory: Clear
Cardiac: S1/S2 and Regular Rhythm; No Murmur or Rub
GI: Soft, Non Tender, Non Distended and Normal Bowel Sounds; No Organomegaly
Rectal: Deferred by Provider
Musculoskeletal: No Clubbing, No Cyanosis and No Edema
Skin: No Rash
Neuro: Nonfocal/grossly intact
Psych: Calm
Laboratory Results
-
10/04/24 12:48
10/04/24 12:48
Laboratory Results
Total Bilirubin 0.6 mg/dl (0.2-1.3) 10/04/24 12:48
AST 24 U/L (14-36) 10/04/24 12:48
ALT 16 U/L (0-35) 10/04/24 12:48
Alkaline Phosphatase 89 U/L (38-126) 10/04/24 12:48
Data Reviewed
-
Diagnostic Radiology: Report Reviewed by me
CT Scan: Report Reviewed by me
Lab Data: Labs Reviewed by me
Impression/Plan
-
# Fever/arm pain unclear cause
- WBC 12.6
-UE CT with the impression of No overt acute fracture or dislocation.Severe chronic degenerative change and enthesopathy of the elbow joint articulations. There is severe joint space narrowing and large osteophytes, several of which are likely
chronically fractured/displaced into the elbow joint recess ease.No overt joint effusion. Evaluation of additional soft tissue structures such as tendons and ligaments is limited by CT. Grossly, no abnormalities are seen.
-shoulder X ray with There are degenerative changes but no evidence of fracture. There is mild periosteal reaction in the proximal right humerus. Please correlate with site of pain.
-Elbow X ray with There is severe deformity of the elbow related to severe degenerative changes. This makes it difficult to evaluate for fracture but there is no displaced fracture
-CRP,ESR pending
-blood culture sent from ER
-PT/OT consulted
# Anemia of chronic disease
- Hemoglobin stable at 11.5, patient with no active bleeding
- Continue to monitor
# PE/DVT
-eliquis continued
#Depression/anxiety
-fluoxetine continued
#type 2 DM
-lantus and lispro continued with decreased units.
-sliding scale
-CHO diet
# Chronic diastolic CHF
#History of asthma
#chronic hypoxic respiratory failure, 2l at baseline
-Does not appear to be an asthma exacerbation
#Hyperlipidemia
- statins
#Hypothyroidism
-on thyroid placement
#Morbid obesity secondary to excess calories
#GERD
-Continue oral PPI
#DVT prophylaxis
-Eliquis
#CODE STATUS
-Full code
--- NOTE | 2024-10-04 21:20 | W.PN.UPDATE ---
Update Note
Progress Note Update
I have personally seen and examined the patient.
I discussed the patient with the SENIOR GAME DESIGNER or PA. Their note was reviewed and I agree with the note.
69-year-old female with DM2, anemia, HTN, cognitive impairment, hypothyroidism, recent prolonged hospitalization for aspiration pneumonia, CHF, and PE, presents from [facility] with complaints of right arm pain. There was no
trauma, patient denies fall or injury to the arm. Patient denies feeling feverish, chills, sore throat, chest pain, difficulty breathing, cough, nausea, vomiting, dysuria, diarrhea, abdominal pain.
On exam she was noted to have rectal temp 100.2 F, BP 97/50.
Gen: NAD
HEENT: PERRLA, EOMI, MMM, neck supple
Heart: RRR, no m/g/r
Lungs: CTAB no w/r/r
Abd: soft/NT/ND/NABS
MSK: +right elbow swelling, no LE edema
Neuro: A+O, no gross focal deficits
Psych: calm
Labs significant for mild leukocytosis
I reviewed the x-rays and CT scan of the right upper extremity
A/P:
Fever/leukocytosis of unknown etiology
Right arm pain, atraumatic
Based on the imaging the elbow pain may be due to severe degenerative changes, on x-ray there is a mild periosteal reaction of the right proximal humerus but this is not reflected in the CT.
Check ESR/CRP
Blood cultures drawn by ED are pending, but no current evidence of infection so hold off antibiotics
Trend fever curve
Supportive care for now
Continue home meds
[2024-10-04 21:40] LABS: C-Reactive Protein 50.30 mg/L (0.0-10.00)
[2024-10-04 22:38] LABS: Glucose - Point of Care 145 mg/dl (70-99)
[2024-10-04] MEDS: DESYREL 50 MG PO (22:51)
[2024-10-04] MEDS: DESENEX/MITRAZOL/ZEASORB TOPICAL (23:19)
[2024-10-05] MEDS: SYNTHROID 125 MCG PO (05:14)
[2024-10-05 07:15] VITALS: BP 110/47
--- NOTE | 2024-10-05 07:21 | W.PN.HOSP.TC ---
Today's Communication/Plan
-
monitor wbc count, Fever
- urinalysis to rule out UTI.
-
Assessment / Plan
Assessment / Plan
69 yrs old F with k/h/o Asthma, Type 2 diabetes, Anemia, Pulmonary embolism, Right bundle branch block, Diastolic heart failure, DVT, Pleural effusion hypothyroidism, Hyperlipidemia, Bipolar, Depression, Anxiety, Intellectual disabilities, Epilepsy,
Hypertension, GERD has a current concern for right side elbow pain.
# Right side elbow pain:
Patient is on sling, with restricted movements for the right side shoulder, elbow. Peripheral pulses are intact, no numbness or erythema.
RADIOGRAPHIC FINDINGS:
Xrays right elbow: there is severe deformity of the elbow related to severe degenerative changes. This makes it difficult to evaluate for fracture but there is no displaced fracture
Xrays right shoulder: There are degenerative changes but no evidence of fracture, There is mild periosteal reaction in the proximal right humerus. Please correlate with site of pain.
CT RUE: Evaluation is limited by patient unintentional motion artifact. No overt acute fracture or dislocation. 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 There is severe joint space narrowing and large
osteophytes, several of which are likely chronically fractured/displaced into the elbow joint recess ease. No overt joint effusion. Evaluation of additional soft tissue structures such as tendons and ligaments is limited by CT. Grossly, no
abnormalities are seen.
-Orthopedics were consulted by given the history of fever, and yesterday's increased WBC count for suspecting sepsis includes to consider continued monitoring and trend fever, 2. IR guided aspiration of the right elbow, 3. MRI of right elbow to
evaluate for effusion. IR aspiration and MRI may require sedation.
- IRAD consultation placed for the future right elbow joint fluid aspiration and analysis to rule out inflammatory, infection source.
# baseline bipolar disease, depression, cognitive impairment/intellectual disability
# Diabetes mellitus:
Diabetes STITCHER HAND on board
Continue insulin sliding scale
History of asthma
Does not appear to be an asthma exacerbation
Hyperlipidemia
Continue statins
Hypothyroidism
Continue thyroid replacement
Morbid obesity secondary to excess calories
Monitor
GERD
Continue oral PPI
DVT Prophylaxis: Eliquis 5 mg
Full code.
Anticipated Discharge: 24 - 48 hours
Subjective/Interval History
-
Date of Service: October 05, 2024
Patient has a right side elbow pain, which is increasing while on movement of her arm. She was on sling when i saw her today morning. She didnt remember of trauma, falling down on right side.
Objective Data
-
Labs:
10/05/24 07:27
10/04/24 12:48
Laboratory Results
Laboratory Results
Vital Signs:
Vital Signs
Temp Pulse Resp BP Pulse Ox
98.3 F 72 18 118/52 96
10/04/24 22:37 10/04/24 22:37 10/04/24 22:37 10/04/24 22:37 10/04/24 23:00
I&O
10/04/24 10/05/24 10/06/24
06:59 06:59 06:59
Intake Total 462 / 462
Balance 462 / 462
Review of Systems
-
Unable to obtain full review of systems at this time due to: Other (slow speech with intellectual disability. )
History Source: Patient
All other systems: Reviewed and negative
Respiratory: Reports No Symptoms
Cardiac: Reports No Symptoms
Abdomen/GI: Reports No Symptoms
Breast: Reports No Symptoms
Genitourinary: Reports No Symptoms
Musculoskeletal: Reports Joint Pain (right side elbow pain with movement restriction)
Skin: Reports No Symptoms
Neuro: Reports No Symptoms
Endocrine: Reports No Symptoms
Hematologic / Lymphatic: Reports No Symptoms
Physical Exam
-
General: Pain
HEENT: Moist Mucous Membranes
Respiratory: Clear to Auscultation
Cardiac: Regular Rhythm and S1/S2
GI: Nontender
Genito-urinary: No Costovertebral Tender
Musculoskeletal: No Clubbing
Skin: Warm
Neuro: AO x 3 and Slurred Speech
Hematologic / Lymphatic: No Lymphadenopathy
[2024-10-05 07:59] LABS: Hematocrit 32.4 % (37.0-47.0); Hemoglobin 10.4 g/dL (12.0-16.0); Mean Corp Hgb Conc. 32.1 g/dL (33.0-37.0); Mean Corpuscular Volume 94.5 fL (81.0-99.0); Platelet Count 287 10^3/uL (130-400); Red Cell Dist. Width 15.4 % (11.5-14.5)
[2024-10-05 08:08] LABS: Glucose - Point of Care 117 mg/dl (70-99)
[2024-10-05] MEDS: ADVAIR HFA 115/21 MCG INHALER 2 PUFF INH ×2 (08:38→19:37)
[2024-10-05] MEDS: PROZAC 40 MG PO (09:26)
[2024-10-05] MEDS: PROTONIX 40 MG PO (09:26)
[2024-10-05] MEDS: ZETIA 10 MG PO (09:26)
[2024-10-05] MEDS: ELIQUIS 5 MG PO ×2 (09:26→20:52)
[2024-10-05] MEDS: NOVOLOG FLEXPEN 8 UNITS SC ×3 (09:27→17:13)
[2024-10-05] MEDS: NOVOLOG FLEXPEN-LOW RESISTANCE SC ×3 (09:28→17:14)
[2024-10-05] MEDS: LANTUS 0.2 UNITS SC (09:32)
[2024-10-05] MEDS: DESENEX/MITRAZOL/ZEASORB 1 APPLIC TOPICAL ×2 (10:15→20:52)
[2024-10-05] MEDS: TYLENOL 650 MG PO ×2 (11:42→20:54)
[2024-10-05 12:55] LABS: Glucose - Point of Care 146 mg/dl (70-99)
[2024-10-05 13:54] VITALS: BP 114/48; PULSE 61; O2SAT 100
--- NOTE | 2024-10-05 14:27 | CON.ORTHO ---
Consultation
-
Date/Time Consultation Requested: 10/05/24
Date/Time Consultation Performed: 10/06/24 @ 2:15pm
Requesting Provider: Diony
Performing Provider: Bindu Salguero PA-C, Prashanth Ventura MD
Reason for Consultation: right elbow pain
Consultation - Orthopedics
History
HPI: 69yo female admitted to [facility] for fever. She was also found to have right elbow pain. She reports no specific injury. She states that she woke up yesterday morning with pain and decreased range of motion of her elbow. She has been
admitted for further work up for her fever. She was placed into a sling. Orthopedics has been consulted for further evaluation
PAST MEDICAL HISTORY: Pneumonitis, Acute respiratory failure with hypoxia, Asthma, Type 2 diabetes, Anemia, Pulmonary embolism, Right bundle branch block, Diastolic heart failure, DVT, Pleural effusion hypothyroidism, Hyperlipidemia, Bipolar,
Depression, Anxiety, Intellectual disabilities, Epilepsy, Hypertension, GERD
PAST SURGICAL HISTORY: reports none
SOCIAL HISTORY: denies alcohol, tobacco
FAMILY HISTORY: non contributory
REVIEW OF SYSTEMS: 12 point review of systems obtained and negative except those mentioned in the HPI
Allergies / Home Medications
Allergy/AdvReac Type Severity Reaction Status Date / Time
No Known Allergies Allergy Unverified 09/17/24 16:51
�Medication �Instructions �Recorded
ezetimibe 10 mg tablet 10 mg PO HS High Cholesterol 09/18/24
fluoxetine 40 mg capsule 40 mg PO DAILY Depression 09/18/24
fluticasone 250 mcg-salmeterol 50 1 inh inhalation R BID 09/18/24
mcg/dose blistr powdr for Lung/Breathing Issues
inhalation (Wixela Inhub)
fluvastatin 40 mg capsule 40 mg PO HS High Cholesterol 09/18/24
insulin glargine 100 unit/mL (3 30 unit SC DAILY Diabetes 09/18/24
mL) subcutaneous pen (Lantus
Solostar U-100 Insulin)
insulin lispro 100 unit/mL 12 unit SC AC Diabetes 09/18/24
subcutaneous pen
levothyroxine 125 mcg tablet 125 mcg PO DAILY Thyroid 09/18/24
omeprazole 20 mg tablet,delayed 20 mg PO DAILY Gastrointestinal 09/18/24
release Issue
acetaminophen 325 mg tablet 650 mg PO Q4H PRN mild 10/04/24
(Tylenol) pain/temp>100F
apixaban 5 mg tablet (Eliquis) 0 mg PO .SEE BELOW Blood 10/04/24
Clot Prevention/Tx
aripiprazole 1 mg/mL oral solution 0.5 mg PO HS Mental Health/Anxiety 10/04/24
bisacodyl 10 mg rectal suppository 10 mg NE DAILY PRN if MOM 10/04/24
(Dulcolax (bisacodyl)) ineffective
magnesium hydroxide 400 mg/5 mL 30 ml PO [id number] PRN if no BM in 3 10/04/24
oral suspension (Milk of Magnesia) days
menthol 0.44 %-zinc oxide 20.6 % 1 applic topical TID apply to 10/04/24
topical ointment (Moisture Barrier sacrum
Ointment)
sodium phosphates 19 gram-7 118 ml NE DAILYPRN PRN if dulcolax 10/04/24
gram/118 mL enema (Fleet Enema) supp ineffective
therapeutic multivitamin 1 tab PO DAILY Supplement 10/04/24
Vital Signs / Lab Results
Temp Pulse Resp BP Pulse Ox
98.4 F 63 20 110/47 98
10/05/24 07:15 10/05/24 08:40 10/05/24 08:40 10/05/24 07:15 10/05/24 09:15
10/05/24 07:27
10/04/24 12:48
RADIOGRAPHIC FINDINGS:
Xrays right elbow: there is severe deformity of the elbow related to severe degenerative changes. This makes it difficult to evaluate for fracture but there is no displaced fracture
Xrays right shoulder: There are degenerative changes but no evidence of fracture, There is mild periosteal reaction in the proximal right humerus. Please correlate with site of pain.
CT RUE: Evaluation is limited by patient unintentional motion artifact. No overt acute fracture or dislocation. 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 There is severe joint space narrowing and large
osteophytes, several of which are likely chronically fractured/displaced into the elbow joint recess ease. No overt joint effusion. Evaluation of additional soft tissue structures such as tendons and ligaments is limited by CT. Grossly, no
abnormalities are seen.
Assessment / Plan
ASSESSMENT/PLAN:
Right elbow pain
--Patient seen in tandem with Dr. Ventura. 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 She does not have any significant erythema or warmth. She does have pain with range of motion. She does have an
elevated ESR and CRP and did have an elevated temperature and WBC on admission. Repeat temperature and WBC are WNL.
--Can consider the following treatment options: 1. continued monitoring and trend fever, 2. IR guided aspiration of the right elbow, 3. MRI of right elbow to evaluate for effusion. IR aspiration and MRI may require sedation. Primary team can
consider the clinical picture to determine the risks and benefits of undergoing sedation.
[2024-10-05 15:15] VITALS: BP 114/48; BP 99/48; O2SAT 100
--- NOTE | 2024-10-05 15:27 | WOUNDNOTE ---
[facility] RN note: Patient admitted with fever and arm pain.
See H&P for complete history.
PMH: Per Physician Note: Pneumonitis, Acute respiratory failure with hypoxia, Asthma,Type 2 diabetes
Anemia, Pulmonary embolism,Right bundle branch block,Diastolic heart failure,DVT
Pleural effusion hypothyroidism,Hyperlipidemia, Bipolar, Depression, Anxiety, Intellectual disabilities, Epilepsy
Hypertension,GERD
Wound Location and type/assessment: Patient admitted with MASD to buttocks with chronic appearing blue and purple discoloration to buttocks. All areas of discoloration are blanchable. Scattered open areas noted on buttocks likely do to a
combination of MASD and friction and shearing. Desenex powder already in uses for fungal appearing skin in groin. Heel foam recently applied and intact. Per chart review, patient transfers from bed to wheelchair.
Pressure redistribution devices in place: Static air overlay applied to bed. Turning schedule, heels off-loaded with air cushion under calves. Patient positioned on right-semi side lying position.
Plan: Static air overlay added to bed. Incontinence care provided and Calazime applied.
Will confirm orders with hospitalist and update nurse. Updated care plan and will follow as needed.
Note to case management of equipment requested for discharge: Air bed, air cushion to chair.
Recommend follow up at wound care center upon discharge.
--- NOTE | 2024-10-05 15:45 | CM ---
CM reviewed chart, patient LTC resident [facility]. [facility]. Per PT evaluations, patient assist of two. Patient primarily uses WC, does ambulate with a RW, transfers bed to WC alone or one person assist.
Patient PCP Tony Turner, pharmacy [facility]. Patient will need insurance auth to return to SNF. CM will continue to follow for all discharge planning needs.
Plan; Return to [facility] LT, will need auth to return for SNF
--- NOTE | 2024-10-05 15:48 | W.PN.UPDATE ---
Update Note
Progress Note Update
Seen and examined by me independently in collaboration with the medical biller coder.
Lab data and imaging data reviewed.
Addendum as below :
Patient with intellectual disability and living in a local facility sent in because of the right elbow pain.
Difficult historian due to intellectual disability. Denies any trauma.
Right arm in the sling. Significant pain with minimal mobility of the right elbow. CT of the upper extremity shows severe DJD of the left elbow but also many large osteophytes some of which are chronically fractured/displaced into the joint elbow
recess which could be causing the pain but with no fever, elevated inflammatory markers will ask orthopedics for evaluation of septic joint versus inflammatory joint disease.
[2024-10-05 16:26] LABS: Glucose - Point of Care 107 mg/dl (70-99)
[2024-10-05 19:00] LABS: Urine Character Slightly Cloudy (Clear)
[2024-10-05 19:08] LABS: Urine Red Blood Cell 16-20 /HPF (0-2); Urine White Cell 30-40 /HPF (0-5)
[2024-10-05] MEDS: LIPITOR 10 MG PO (21:00)
[2024-10-05] MEDS: DESYREL 50 MG PO (21:00)
[2024-10-05 21:16] LABS: Glucose - Point of Care 155 mg/dl (70-99)
[2024-10-05 23:16] VITALS: BP 110/49
[2024-10-06] MEDS: SYNTHROID 125 MCG PO (04:43)
[2024-10-06 06:00] VITALS: BMI 44.4
[2024-10-06 07:05] VITALS: BP 120/53
[2024-10-06 07:07] LABS: Glucose - Point of Care 188 mg/dl (70-99)
--- NOTE | 2024-10-06 07:37 | W.PN.UPDATE ---
Update Note
Progress Note Update
No change in recs from yeterday.
pt w. severe R elbow pain but also has 100% bone on bone OA. This could be managed outpatient so only inpatient concern would be if she had septic arthritis. This is possible due to fever and elev inflam markers but deemed low likelyhood since
she did not have any procedure on the elbow and any infection would have to be spontaneous hematogenous and there is no prosthesis. This would be extremely rare.
Thus options include:
Observe and monitor fever curve and pain level. PRO/con: noninvasive. The elbow is already bone on bone so a delay in dx'ing septic arthritis would have little clinical consequence in the absense of sepsis)
IR guided aspiration (would require sedation due to intellectual disability) PRO/Con: would possibly provide a definitive dx although the elbow is so arthritis my not yeild anything and put patient through procedure with no benefit. Sedation has
risks.
MRI with sedation ,(would require sedation due to intellectual disability) PRo/con Would look for effusion and is non-invasive but effusion is nonspecific and thus aspiration would still need to be done even if effusion present. Absense of
effusion doesn't rule out infection.
Again I feel infection is likely NOT present but given comorbidities and risks of the tests rather than order myself I would recommend medical team weigh risk/benefits of each possible option and determine which is medically most appropriate given
comorbidities.
PT can fu outpatient to discuss elbow replacement on discharge for definitive treatment of oa. Inpatient treatment of OA flare per medicine (nsaids , pain meds, etc)
[2024-10-06] MEDS: NOVOLOG FLEXPEN-LOW RESISTANCE 1 UNITS SC (07:50)
[2024-10-06] MEDS: PROZAC 40 MG PO (07:50)
[2024-10-06] MEDS: ZETIA 10 MG PO (07:51)
[2024-10-06] MEDS: NOVOLOG FLEXPEN 8 UNITS SC ×3 (07:51→17:24)
[2024-10-06] MEDS: PROTONIX 40 MG PO (07:51)
[2024-10-06] MEDS: ELIQUIS 5 MG PO ×2 (07:51→19:48)
[2024-10-06] MEDS: LANTUS 0.2 UNITS SC (07:51)
[2024-10-06] MEDS: DESENEX/MITRAZOL/ZEASORB 1 APPLIC TOPICAL ×2 (07:53→19:50)
[2024-10-06] MEDS: ADVAIR HFA 115/21 MCG INHALER 2 PUFF INH ×2 (08:28→19:16)
[2024-10-06 08:40] LABS: Hematocrit 32.0 % (37.0-47.0); Hemoglobin 10.0 g/dL (12.0-16.0); Mean Corp Hgb Conc. 31.3 g/dL (33.0-37.0); Mean Corpuscular Volume 96.7 fL (81.0-99.0); Platelet Count 279 10^3/uL (130-400); Red Cell Dist. Width 15.6 % (11.5-14.5)
--- NOTE | 2024-10-06 09:10 | PN.CDI ---
Addendum entered and electronically signed by Jono Vora MD, Resident 10/10/24 16:08:
Hypoxic Respiratory failure managed with 2-3 L of nasal cannula
Original Note:
CDI
- -
CDI:
Physician Documentation Request
Admit Date: 10/04/24 21:36
Dear Doctor Diony,
H&P: 'past medical history for chronic respiratory failure'
Selected Entries
10/04/24
11:51 10/05/24
08:40 10/05/24
20:25
Nasal Cannula flow liters per minute 2 3 3
Please clarify the type and acuity of respiratory failure:
Hypoxic
Hypercapnic
Other
Use of terms such as suspected, likely, concern for, or probable (associated with a specific diagnosis that is being evaluated, monitored, or treated as if it exists) are acceptable and can be coded in the inpatient setting, when documented at the
time of discharge.
Thank you,
Tory West RN, BSN
CDI Specialist
Available via [place] text
Please use your independent medical judgment in providing your response.
[2024-10-06 09:15] LABS: ALT (SGPT) 10 U/L (0-35); AST (SGOT) 18 U/L (14-36); Albumin 2.8 g/dl (3.5-5.0); Alkaline Phosphatase 76 U/L (38-126); Blood Urea Nitrogen 13 mg/dl (7-17); Calcium 9.1 mg/dl (8.4-10.2); Carbon Dioxide 25 mmol/L (22-30); Chloride 112 mmol/L (98-107); Estimated Creatinine Clearance 73 ml/min; Glucose 177 mg/dl (70-99); Potassium 4.4 mmol/L (3.5-5.1); Sodium 142 mmol/L (135-145); Total Protein 5.9 g/dl (6.3-8.2); eGFR > 60.00
[2024-10-06 11:46] LABS: Glucose - Point of Care 135 mg/dl (70-99)
[2024-10-06] MEDS: NOVOLOG FLEXPEN-LOW RESISTANCE SC ×2 (11:48→16:33)
--- NOTE | 2024-10-06 13:29 | CM ---
Addendum entered by Afia Maurer 10/06/24 16:31:
Authorization for skilled rehab at [facility] initiated with [facility]- reference# [id number]
clinicals faxed to [phone]
Original Note:
Patient seen bedside.
PT recommending skilled rehab, will need auth prior to d/c.
CM continues to follow for medical clearance to initiate auth.
Plan; Return to [facility]
--- NOTE | 2024-10-06 13:38 | W.PN.UPDATE ---
Update Note
Progress Note Update
Seen and examined by me independently in collaboration with the medical reimbursement specialist.
Lab data and imaging data reviewed.
Addendum as below :
Patient still with extreme pain and very limited range of motion's in the right elbow. Appreciate orthopedic input.
Will start with IR guided right elbow arthrocentesis and sent for culture as well as crystals in the meantime continue the pain management and arm in sling.
[2024-10-06 15:15] VITALS: BP 105/57
[2024-10-06 16:33] LABS: Glucose - Point of Care 119 mg/dl (70-99)
[2024-10-06] MEDS: LIPITOR 10 MG PO (21:11)
[2024-10-06] MEDS: DESYREL 50 MG PO (21:11)
[2024-10-06 21:18] LABS: Glucose - Point of Care 98 mg/dl (70-99)
[2024-10-06 23:07] VITALS: BP 101/44
[2024-10-07] MEDS: TYLENOL 650 MG PO (02:01)
[2024-10-07] MEDS: MELATONIN 5 MG PO (02:01)
[2024-10-07] MEDS: SYNTHROID 125 MCG PO (05:30)
[2024-10-07] MEDS: PROZAC 40 MG PO (07:17)
[2024-10-07] MEDS: ELIQUIS 5 MG PO (07:17)
[2024-10-07] MEDS: DESENEX/MITRAZOL/ZEASORB 1 APPLIC TOPICAL (07:17)
[2024-10-07] MEDS: PROTONIX 40 MG PO (07:17)
[2024-10-07] MEDS: ZETIA 10 MG PO (07:17)
[2024-10-07] MEDS: NOVOLOG FLEXPEN-LOW RESISTANCE 2 UNITS SC (07:22)
[2024-10-07] MEDS: NOVOLOG FLEXPEN 8 UNITS SC ×3 (07:22→16:34)
[2024-10-07] MEDS: LANTUS 0.2 UNITS SC (07:22)
[2024-10-07 07:28] LABS: Glucose - Point of Care 220 mg/dl (70-99)
[2024-10-07 07:31] VITALS: BP 128/55
--- NOTE | 2024-10-07 07:33 | W.PN.HOSP.TC ---
Today's Communication/Plan
-
Urinalysis- WBC REFLEX positive, RBC positive, urine bacteria positive
Urine albumin positive.
follow up with PCP for the future.
Assessment / Plan
Assessment / Plan
69 yrs old F with k/h/o Asthma, Type 2 diabetes, Anemia, Pulmonary embolism, Right bundle branch block, Diastolic heart failure, DVT, Pleural effusion hypothyroidism, Hyperlipidemia, Bipolar, Depression, Anxiety, Intellectual disabilities, Epilepsy,
Hypertension, GERD has a current concern for right side elbow pain.
# Right side elbow pain:
Patient is on sling, with restricted movements for the right side shoulder, elbow. Peripheral pulses are intact, no numbness or erythema.
RADIOGRAPHIC FINDINGS:
Xrays right elbow: there is severe deformity of the elbow related to severe degenerative changes. This makes it difficult to evaluate for fracture but there is no displaced fracture
Xrays right shoulder: There are degenerative changes but no evidence of fracture, There is mild periosteal reaction in the proximal right humerus. Please correlate with site of pain.
CT RUE: Evaluation is limited by patient unintentional motion artifact. No overt acute fracture or dislocation. 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 There is severe joint space narrowing and large
osteophytes, several of which are likely chronically fractured/displaced into the elbow joint recess ease. No overt joint effusion. Evaluation of additional soft tissue structures such as tendons and ligaments is limited by CT. Grossly, no
abnormalities are seen.
-Orthopedics were consulted by given the history of fever, and yesterday's increased WBC count for suspecting sepsis includes to consider continued monitoring and trend fever, 2. IR guided aspiration of the right elbow, 3. MRI of right elbow to
evaluate for effusion. IR aspiration and MRI may require sedation.
-IRAD consultation placed and aspiration cant be done because of less fluid in right elbow joint space.
-Manage the patient with pain medications.
#Urinalysis:
Urinalysis- WBC REFLEX positive, RBC positive, urine bacteria positive, Urine albumin positive.
Cephalexin 500mg TID are given for 5 days while on discharge.
# baseline bipolar disease, depression, cognitive impairment/intellectual disability
# Diabetes mellitus:
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
Continue insulin sliding scale
History of asthma
Does not appear to be an asthma exacerbation
Hyperlipidemia
Continue statins
Hypothyroidism
Continue thyroid replacement
Morbid obesity secondary to excess calories
Monitor
GERD
Continue oral PPI
Wound Care Instructions :
Barrier ointment with incontinence care and anti-fungal powder to groin folds.
Air cushion to chair and bed
DVT Prophylaxis: Eliquis 5 mg
Full code.
Anticipated Discharge: Today
Subjective/Interval History
-
Date of Service: October 07, 2024
Patient has a concern for right side elbow pain. Not experiencing dysuria, polyuria, palpitation, chest pain.
Objective Data
-
Labs:
Laboratory Results
10/07/24 07:39
10/07/24 07:39
Laboratory Results
Lactic Acid 1.6 mmol/L (0.7-2.0) 10/04/24 20:56
Total Bilirubin 0.5 mg/dl (0.2-1.3) 10/07/24 07:39
AST 22 U/L (14-36) 10/07/24 07:39
ALT 13 U/L (0-35) 10/07/24 07:39
Alkaline Phosphatase 69 U/L (38-126) 10/07/24 07:39
Vital Signs:
Vital Signs
Temp Pulse Resp BP Pulse Ox
98.3 F 76 20 101/44 95
10/06/24 23:07 10/06/24 23:07 10/06/24 23:07 10/06/24 23:07 10/06/24 23:07
I&O
10/06/24 10/07/24 10/08/24
06:59 06:59 06:59
Intake Total 720 / 720 720 / 720
Output Total 250 / 250
Balance 470 / 470 720 / 720
Review of Systems
-
History Source: Patient
Constitutional: Reports No Symptoms
EENT: Reports No Symptoms Reported
Respiratory: Reports No Symptoms
Cardiac: Reports No Symptoms
Abdomen/GI: Reports No Symptoms
Breast: Reports No Symptoms
Genitourinary: Reports No Symptoms
Musculoskeletal: Reports Joint Pain (right side elbow pain)
Skin: Reports No Symptoms
Neuro: Reports No Symptoms
Endocrine: Reports No Symptoms
Hematologic / Lymphatic: Reports No Symptoms
Allergy / Immunology: Reports No Symptoms
Psych: Reports Other
Physical Exam
-
General: Well Developed
HEENT: Moist Mucous Membranes
Respiratory: Clear to Auscultation
Cardiac: Regular Rhythm and S1/S2
GI: Soft and Nontender
Genito-urinary: No Costovertebral Tender
Musculoskeletal: No Clubbing
Skin: Warm
Neuro: AO x 3
Hematologic / Lymphatic: No Lymphadenopathy
[2024-10-07] MEDS: ADVAIR HFA 115/21 MCG INHALER 2 PUFF INH ×2 (07:51→18:50)
[2024-10-07 08:02] LABS: Hematocrit 33.1 % (37.0-47.0); Hemoglobin 10.6 g/dL (12.0-16.0); Mean Corp Hgb Conc. 32.0 g/dL (33.0-37.0); Mean Corpuscular Volume 95.1 fL (81.0-99.0); Platelet Count 301 10^3/uL (130-400); Red Cell Dist. Width 15.3 % (11.5-14.5)
[2024-10-07 08:24] LABS: ALT (SGPT) 13 U/L (0-35); AST (SGOT) 22 U/L (14-36); Albumin 2.9 g/dl (3.5-5.0); Alkaline Phosphatase 69 U/L (38-126); Blood Urea Nitrogen 12 mg/dl (7-17); Calcium 9.0 mg/dl (8.4-10.2); Carbon Dioxide 23 mmol/L (22-30); Chloride 114 mmol/L (98-107); Estimated Creatinine Clearance 73 ml/min; Glucose 223 mg/dl (70-99); Potassium 4.5 mmol/L (3.5-5.1); Sodium 142 mmol/L (135-145); Total Protein 6.1 g/dl (6.3-8.2); eGFR > 60.00
[2024-10-07 09:33] LABS: Uric Acid 6.2 mg/dl (2.5-6.2)
[2024-10-07 09:35] VITALS: BP 133/52; PULSE 65; O2SAT 93
--- NOTE | 2024-10-07 11:04 | CM ---
Addendum entered by Afia Maurer 10/07/24 17:22:
TC from [facility], approved 10/07/24 with [facility] 10/11/24
Auth # [id number]
updates to Ama Mahajan fax# [phone]
auth given to Isabel at [facility]
Addendum entered by Afia Maurer 10/07/24 15:54:
Plan: [facility] today
[facility] Report:[phone]
[facility]
IMM completed
Ambulance transport forms on chart.
Pended reference number given to Isabel/[facility] liaison
Addendum entered by Afia Maurer 10/07/24 14:20:
updated clinical note and PT note faxed to [phone].
Original Note:
TC from [facility] re skilled rehab authorization.
[facility] requesting MD clinicals stating patient is medically stable for d/c prior to issuing authorization.
Patient is LTC at [facility] and may be able to return with a pending auth, once clinicals and updated therapy notes are sent.
[2024-10-07 13:09] LABS: Glucose - Point of Care 196 mg/dl (70-99)
[2024-10-07] MEDS: NOVOLOG FLEXPEN-LOW RESISTANCE 1 UNITS SC (14:06)
--- NOTE | 2024-10-07 14:07 | W.PN.UPDATE ---
Update Note
Progress Note Update
Seen and examined by me independently in collaboration with the medical intern.
Lab data reviewed.
Addendum as below :
Remains symptomatic with right elbow pain with manipulation. Comfortable in the sling. Discussed with IR and reviewed the CT elbow -there is no fluid even to tap, it's bone on bone. No fluid also is helpful, less likely infectious or
inflammatory. Suspicion is severe case of arthritis. Continue with symptomatic management and follow-up with orthopedic as an outpatient for joint replacement.
She had 1 low-grade fever 100.2 with leukocytosis which resolved. Urine analysis was positive and she is growing a gram-negative bacilli. Will treat as possible UTI. Give a dose of ceftriaxone and switch to oral Keflex upon discharge.
Lab work is otherwise unremarkable.
Continue with current medication regimen-reviewed.
Medically stable for discharge. PT recommends rehab. Discussed with case management regarding disposition.
[2024-10-07 15:57] VITALS: BP 118/57
[2024-10-07] MEDS: NOVOLOG FLEXPEN-LOW RESISTANCE SC (16:36)
[2024-10-07 16:37] LABS: Glucose - Point of Care 125 mg/dl (70-99)
--- NOTE | 2024-10-07 16:56 | W.DCSUMMARY ---
Discharge Summary
Discharge Data
Date of Admission: 10/04/24
Date of Discharge: 10/07/24
Total time spent discharging patient (in min): 20 mins
-
Pending Results: No
Additional Pending Results:
Discharging Physician : Dr Jono Vora
Axel Lawrence M.D
Disposition :
Primary care physician : Dr Tony Turner
Principal Discharge diagnosis : Right side elbow pain because of chronic degeneration of joint space.
Chronic Discharge diagnosis :
Asthma
Type 2 diabetes
Anemia
Pulmonary embolism
Right bundle branch block
Diastolic heart failure
DVT
hypothyroidism
Hyperlipidemia
Bipolar
Depression
Anxiety
Intellectual disabilities
Epilepsy,
Hypertension
GERD
Hospital Course : On 10/04 69-year-old female from [facility] sent for evaluation, for right arm/elbow, shoulder pain for the past several days, which was not associated with fall injury, trauma. She was able to give history. She denied any
associated chest pain shortness of breath, fever, chills. She felt unwell. Sling were placed and Orthopedics were consulted by given the history of fever, and increased WBC count for suspecting sepsis included to consider continued monitoring and
trend fever. Urinalysis- WBC REFLEX,RBC urine,bacteria, Urine albumin positive, ceftriaxone was given and switched to oral Keflex upon discharge. IRAD consultation placed with recommendation of aspiration cant be done because of less fluid in right
elbow joint space. Managed the patient with pain medications. Patient was stable at the time of discharge and advised for a follow up within a week of discharge.
Important imaging findings :
On 10/04 Xrays right elbow: there is severe deformity of the elbow related to severe degenerative changes. This makes it difficult to evaluate for fracture but there is no displaced fracture
On 10/04 Xrays right shoulder: There are degenerative changes but no evidence of fracture, There is mild periosteal reaction in the proximal right humerus. Please correlate with site of pain.
On 10/04: CT RUE: Evaluation is limited by patient unintentional motion artifact. No overt acute fracture or dislocation. 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 There is severe joint space narrowing and
large osteophytes, several of which are likely chronically fractured/displaced into the elbow joint recess ease. No overt joint effusion. Evaluation of additional soft tissue structures such as tendons and ligaments is limited by CT. Grossly, no
abnormalities are seen.
Discharge Plan
-
Patient Disposition: Skilled Nursing/SNF
Discharge Diagnosis/Procedures: Right side elbow pain
Condition: Fair
Diet: No restrictions
Activity: No restrictions
Driving Restrictions: As prior to admission
Bathing Restrictions: None
Others Tests: Urinalysis- WBC REFLEX positive, RBC positive, urine bacteria positive
Urine albumin positive.
Other Services: PT and OT
Activity Restrictions/Additional Instructions:
Wound Care Instructions Barrier ointment with incontinence care and anti-fungal powder to groin folds.
Turning schedule
Air cushion to chair and bed
Instructions: Chronic Pain (DC), BLOOD PRESSURE
Referrals:
Tony Turner MD [Family Provider]
Prescriptions:
New
cephalexin 500 mg capsule
500 mg PO QID Qty: 16 0RF
cephalexin 500 mg capsule
500 mg PO BID Qty: 1 0RF
Continued
insulin lispro 100 unit/mL Insulin Pen
12 unit SC AC
fluoxetine 40 mg Capsule
40 mg PO DAILY
fluticasone propion-salmeterol [Wixela Inhub] 250-50 mcg/dose Blister With Device
1 inh INHALATION R BID
fluvastatin 40 mg Capsule
40 mg PO HS
levothyroxine 125 mcg Tablet
125 mcg PO DAILY
ezetimibe 10 mg Tablet
10 mg PO HS
insulin glargine [Lantus Solostar U-100 Insulin] 100 unit/mL (3 mL) Insulin Pen
30 unit SC DAILY
omeprazole 20 mg Tablet,Delayed Release (Dr/Ec)
20 mg PO DAILY
Eliquis 5 mg Tablet
0 mg PO .SEE BELOW
Patient Comments:
10/04/2024, 10 mg BID until 10/04/2024; starting 10/05/2024 take 5 mg BID.
acetaminophen [Tylenol] 325 mg Tablet
650 mg PO Q4H MDD 3000 mg PRN (Reason: mild pain/temp>100F)
therapeutic multivitamin Tablet
1 tab PO DAILY
magnesium hydroxide [Milk of Magnesia] 400 mg/5 mL Suspension
30 ml PO [id number] PRN (Reason: if no BM in 3 days)
aripiprazole 1 mg/mL Solution
0.5 mg PO HS
menthol-zinc oxide [Moisture Barrier Ointment] 0.44-20.6 % Ointment
1 applic TOPICAL TID
Discontinued
bisacodyl [Dulcolax (bisacodyl)] 10 mg Suppository
10 mg IA DAILY PRN (Reason: if MOM ineffective)
Fleet Enema 19-7 gram/118 mL Enema
118 ml IA DAILYPRN PRN (Reason: if dulcolax supp ineffective)
Discharge Orders:
Discharge Patient (As Directed); Ordered 10/07/24
Ordered By: Jono Vora
Discharge Date and Time
Discharge Date/Time: 10/07/24 19:36
Print Language: HEBREW
[2024-10-07 19:05] VITALS: BP 116/50
== END 2024-10-07 19:36 | DRG 554 ==
LOC: 4 EAST ACU 21:36
PROVIDERS: Nurse Practitioner; Registered Nurse; ADMITTING PHYSICIAN Internal Medicine; ATTENDING PHYSICIAN Internal Medicine; CONSULT PHYSICIAN Orthopaedic Surgery; EMERGENCY PHYSICIAN Emergency Medicine; FAMILY PHYSICIAN Internal Medicine
DX: M19.021 Primary osteoarthritis, right elbow (principal); J96.11 Chronic respiratory failure with hypoxia; I50.32 Chronic diastolic (congestive) heart failure; Z68.41 Body mass index [BMI] 40.0-44.9, adult; N39.0 Urinary tract infection, site not specified; D63.8 Anemia in other chronic diseases classified elsewhere; F41.9 Anxiety disorder, unspecified; F31.9 Bipolar disorder, unspecified; E11.9 Type 2 diabetes mellitus without complications; J45.909 Unspecified asthma, uncomplicated; E03.9 Hypothyroidism, unspecified; E66.01 Morbid (severe) obesity due to excess calories; K21.9 Gastro-esophageal reflux disease without esophagitis; R79.82 Elevated C-reactive protein (CRP); R70.0 Elevated erythrocyte sedimentation rate; F79 Unspecified intellectual disabilities; M77.9 Enthesopathy, unspecified; E78.00 Pure hypercholesterolemia, unspecified; G40.909 Epilepsy, unspecified, not intractable, without status epilepticus; I11.0 Hypertensive heart disease with heart failure; Z79.4 Long term (current) use of insulin; Z79.899 Other long term (current) drug therapy
CPT/HCPCS: 73030; 73080; 73200; 80053; 81003; 81015; 82962; 83605; 84550; 85025; 85027; 85652; 86140; 87040; 87070; 87077; 87086; 87186; 94640; 97163; 97167; 97530; 99285